=== PATIENT | female | born 1940 | race Caucasian/White ===

== ENCOUNTER 2019-06-07 12:19 | Inpatient (IN) | payer MEDICARE ==
--- NOTE | 2019-06-07 13:10 | EDM.PDOC ---
ED HPI GENERAL MEDICAL PROBLEM - General Chief Complaint: Cardiovascular Problem Stated Complaint: FAST HEART RATE, HIGH BP Time Seen by Provider: 06/07/19 13:06 Source of Information: Reports: Patient History Limitations: Reports: No Limitations - History of Present Illness INITIAL COMMENTS - FREE TEXT/NARRATIVE: pt has had a sustained rapid rhythm today. She has not had chest pain. She is not sob. Pt has not had tachycardia in the past. Onset: Today, Other ( started when she got up) Duration: Hour(s):, Other ( started about 7 am. ) Location: Reports: Chest Associated Symptoms: Reports: No Other Symptoms - Related Data Allergies Allergy/AdvReac Type Severity Reaction Status Date / Time Penicillins Allergy Rash Verified 06/07/19 12:47 Home Meds: Home Meds Fenofibrate 54 mg PO QAM 10/26/13 [History] Levothyroxine [Sythroid] 100 mcg PO DAILY 10/26/13 [History] predniSONE [Prednisone] 3 mg PO QAM 10/26/13 [History] Cyclobenzaprine [Flexeril] 5 mg PO BEDTIME 02/08/14 [History] Acetaminophen [Tylenol Extra Strength] 500 mg PO BID 06/07/19 [History] Calcium Carbonate [Calcium] 1 tab PO DAILY 06/07/19 [History] Cholecalciferol (Vitamin D3) [Vitamin D3] 1 cap PO DAILY 06/07/19 [History] Cyanocobalamin (Vitamin B12) [Vitamin B12] 1,000 mcg PO BID 06/07/19 [History] Fluticasone Propionate [Flonase Allergy Relief] 2 spray JIMMY DAILY 06/07/19 [ History] Ipratropium [Atrovent 0.03% Nasal [place]] 2 drop JIMMY BEDTIME 06/07/19 [History] Metoprolol Succinate [Toprol XL 50mg] 50 mg PO DAILY 06/07/19 [History] Vit A/Vit C/Vit E/Zinc/Copper [Preservision] 1 tab PO DAILY 06/07/19 [History] Past Medical History HEENT History: Reports: Cataract, Macular Degeneration 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 History: Reports: 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 Hernia 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: Musculoskeletal History: Reports: Osteoarthritis, RA, Other (See Below) Other Musculoskeletal History: polymyalgia Neurological History: Reports: Neuropathy, Peripheral - Past Surgical History HEENT Surgical History: Reports: Cataract Surgery GI Surgical History: Reports: Cholecystectomy Female Surgical History: Reports: Section Musculoskeletal Surgical History: Reports: Other (See Below) Other Musculoskeletal Surgeries/Procedures:: ankle surgery Social & Family History - Tobacco Use Smoking Status *Q: Never Smoker - Recreational Drug Use Recreational Drug Use: No ED ROS GENERAL - Review of Systems Review Of Systems: See Below Constitutional: Reports: No Symptoms, Other (pt has not been ill recently) HEENT: Reports: No Symptoms Respiratory: Reports: No Symptoms Cardiovascular: Reports: Palpitations Endocrine: Reports: No Symptoms GI/Abdominal: Reports: No Symptoms : Reports: No Symptoms Musculoskeletal: Reports: No Symptoms Skin: Reports: No Symptoms Neurological: Reports: No Symptoms Psychiatric: Reports: No Symptoms ED EXAM, GENERAL - Physical Exam Free Text/Narrative:: pt arrived with a episode that started at 7 am of a rapid rhythm. She has had this in the past but it has been brief and they have not been seen, Exam Limited By: No Limitations General Appearance: Alert, No Apparent Distress, Anxious, Other (pupils are equal ad reactive. ) Ears: Normal TMs Nose: Normal Inspection Throat/Mouth: Normal Inspection Head: Atraumatic Neck: Normal Inspection Respiratory/Chest: No Respiratory Distress Cardiovascular: Regular Rate, Rhythm, Tachycardia, Other ( rate is 120 to 130. ) GI/Abdominal: Soft, Non-Tender (Female) Exam: Deferred Rectal (Female) Exam: Deferred Back Exam: Normal Inspection Extremities: Normal Inspection Neurological: Alert, Oriented, Normal Cognition Psychiatric: Normal Affect Course - Vital Signs Last Recorded V/S: Last Vital Signs Temp 36.8 C 06/07/19 12:45 Pulse 131 H 06/07/19 12:45 Resp 14 06/07/19 12:45 BP 142/94 H 06/07/19 12:45 Pulse Ox 95 06/07/19 12:45 - Orders/Labs/Meds Orders: Active Orders 24 hr Category Date Time Status EKG Documentation Completion [RC] ASDIRECTED Care 06/07/19 13:01 Active MAGNESIUM [CHEM] Stat Lab 06/07/19 14:02 Ordered UA W/MICROSCOPIC [URIN] Urgent Lab 06/07/19 13:01 Ordered EKG 12 Lead [EK] Routine Ther 06/07/19 13:01 Ordered Labs: Laboratory Tests 06/07/19 06/07/19 06/07/19 Range/Units 13:13 13:13 13:13 WBC 8.7 (4.5-11.0) K/uL RBC 5.28 (3.30-5.50) M/uL Hgb 15.3 H (12.0-15.0) g/dL Hct 47.0 (36.0-48.0) % MCV 89 (80-98) fL MCH 29 (27-31) pg MCHC 33 (32-36) % Plt Count 406 H (150-400) K/uL Neut % (Auto) 63 (36-66) % Lymph % (Auto) 21 L (24-44) % [place] % (Auto) 11 H (2-6) % Eos % (Auto) 5 H (2-4) % Baso % (Auto) 0 (0-1) % Sodium 138 L (140-148) mmol/L Potassium 3.8 (3.6-5.2) mmol/L Chloride 102 (100-108) mmol/L Carbon Dioxide 26 (21-32) mmol/L Anion Gap 13.8 (5.0-14.0) mmol/L BUN 9 (7-18) mg/dL Creatinine 0.7 (0.6-1.0) mg/dL Est Cr Clr Drug Dosing 55.35 mL/min Estimated GFR (MDRD) > 60 (>60) Glucose 102 (74-106) mg/dL Calcium 9.3 (8.5-10.1) mg/dL Total Bilirubin 0.6 (0.2-1.0) mg/dL AST 16 (15-37) U/L ALT 19 (12-78) U/L Alkaline Phosphatase 82 (46-116) U/L Troponin I (0.000-0.056) ng/mL Total Protein 6.7 (6.4-8.2) g/dL Albumin 3.7 (3.4-5.0) g/dL Globulin 3.0 (2.3-3.5) g/dL Albumin/Globulin Ratio 1.2 (1.2-2.2) TSH, Ultra Sensitive 1.750 (0.358-3.740) uIU/mL 06/07/19 Range/Units 13:13 WBC (4.5-11.0) K/uL RBC (3.30-5.50) M/uL Hgb (12.0-15.0) g/dL Hct (36.0-48.0) % MCV (80-98) fL MCH (27-31) pg MCHC (32-36) % Plt Count (150-400) K/uL Neut % (Auto) (36-66) % Lymph % (Auto) (24-44) % [place] % (Auto) (2-6) % Eos % (Auto) (2-4) % Baso % (Auto) (0-1) % Sodium (140-148) mmol/L Potassium (3.6-5.2) mmol/L Chloride (100-108) mmol/L Carbon Dioxide (21-32) mmol/L Anion Gap (5.0-14.0) mmol/L BUN (7-18) mg/dL Creatinine (0.6-1.0) mg/dL Est Cr Clr Drug Dosing mL/min Estimated GFR (MDRD) (>60) Glucose (74-106) mg/dL Calcium (8.5-10.1) mg/dL Total Bilirubin (0.2-1.0) mg/dL AST (15-37) U/L ALT (12-78) U/L Alkaline Phosphatase (46-116) U/L Troponin I < 0.017 (0.000-0.056) ng/mL Total Protein (6.4-8.2) g/dL Albumin (3.4-5.0) g/dL Globulin (2.3-3.5) g/dL Albumin/Globulin Ratio (1.2-2.2) TSH, Ultra Sensitive (0.358-3.740) uIU/mL Meds: Medications Discontinued Medications Generic Name Dose Route Start Last Admin Trade Name Freq PRN Reason Stop Dose Admin Adenosine 6 mg 06/07/19 13:21 06/07/19 13:30 Adenocard IVPUSH 06/07/19 13:22 6 mg NOW ONE Administration - Re-Assessments/Exams Free Text/Narrative Re-Assessment/Exam: 06/07/19 14:10 pt was found to have normal lab work. She was given adenogaard 6 mg iv. She did develop a long period of asystole. Departure - Departure Time of Disposition: 14:11 Disposition: Admitted As Inpatient 65 Condition: Fair Clinical Impression: Atrial tachycardia Referrals: PCP,None [Primary Care Provider] - Forms: ED Department Discharge Care Plan Goals: admit to Dr Champion Sepsis Event Note - Evaluation Sepsis Screening Result: No Definite Risk - Focused Exam Vital Signs: Vital Signs Temp Pulse Resp BP Pulse Ox 06/07/19 12:45 36.8 C 131 H 14 142/94 H 95 Date Exam was Performed: 06/07/19 Time Exam was Performed: 14:06 - My Orders Last 24 Hours: My Active Orders 06/07/19 13:01 EKG Documentation Completion [RC] ASDIRECTED UA W/MICROSCOPIC [URIN] Urgent EKG 12 Lead [EK] Routine 06/07/19 14:02 MAGNESIUM [CHEM] Stat - Assessment/Plan Last 24 Hours: My Active Orders 06/07/19 13:01 EKG Documentation Completion [RC] ASDIRECTED UA W/MICROSCOPIC [URIN] Urgent EKG 12 Lead [EK] Routine 06/07/19 14:02 MAGNESIUM [CHEM] Stat
[2019-06-07] MEDS ORDERED: Adenosine 6 MG/2 ML SDV IVPUSH ONE (13:21)
--- NOTE | 2019-06-07 13:50 | CRLCR ---
INDICATION: Heart rate. COMPARISON: None. FINDINGS: A portable AP view of the chest obtained. The cardiac silhouette and pulmonary vasculature are within normal limits. There is a large hiatal hernia. The lungs are clear of acute infiltrates. There is scoliosis. IMPRESSION: Large hiatal hernia. No evidence of acute pulmonary disease. Dictated by Mirza White MD @ 06/07/2019 1:47:28 PM Dictated by: Mirza White MD @ 06/07/2019 13:48:15 (Electronically Signed)
--- NOTE | 2019-06-07 14:45 | PCM.HP.2 ---
H&P History of Present Illness - General Date of Service: 06/07/19 Admit Problem/Dx: Admission Diagnosis/Problem Admission Diagnosis/Problem Tachycardia Source of Information: Patient, Family, Provider, RN Notes Reviewed History Limitations: Reports: No Limitations - History of Present Illness Initial Comments - Free Text/Narative: Ms. Yanez is an 79-year-old woman who was admitted through the emergency department with palpitations secondary to underlying atrial tachycardia. She has had a few episodes over the past year that have resolved spontaneously. This episode started earlier this morning and has not yet resolved. She presented to the emergency department and was found to be in a narrow complex tachycardia with a regular rhythm. She did receive a dose of Identicard and had a prolonged episode of asystole, but did not convert to sinus rhythm. She denies any history of cardiac disease specifically no prior myocardial infarction congestive heart failure, murmur or rheumatic fever. She denies any symptoms of chest pain or pressure or significant dyspnea. Troponin is within normal range and TSH is also found to be normal. - Related Data Allergies/Adverse Reactions: Allergies Allergy/AdvReac Type Severity Reaction Status Date / Time Penicillins Allergy Rash Verified 06/07/19 12:47 Home Medications: Home Meds Fenofibrate 54 mg PO QAM 10/26/13 [History] Levothyroxine [Sythroid] 100 mcg PO DAILY 10/26/13 [History] predniSONE [Prednisone] 3 mg PO QAM 10/26/13 [History] Cyclobenzaprine [Flexeril] 5 mg PO BEDTIME 02/08/14 [History] Acetaminophen [Tylenol Extra Strength] 500 mg PO BID 06/07/19 [History] Calcium Carbonate [Calcium] 1 tab PO DAILY 06/07/19 [History] Cholecalciferol (Vitamin D3) [Vitamin D3] 1 cap PO DAILY 06/07/19 [History] Cyanocobalamin (Vitamin B12) [Vitamin B12] 1,000 mcg PO BID 06/07/19 [History] Fluticasone Propionate [Flonase Allergy Relief] 2 spray JIMMY DAILY 06/07/19 [ History] Ipratropium [Atrovent 0.03% Nasal [place]] 2 drop JIMMY BEDTIME 06/07/19 [History] Metoprolol Succinate [Toprol XL 50mg] 50 mg PO DAILY 06/07/19 [History] Vit A/Vit C/Vit E/Zinc/Copper [Preservision] 1 tab PO DAILY 06/07/19 [History] Past Medical History HEENT History: Reports: Cataract, Macular Degeneration 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 History: Reports: Hiatal Hernia 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: Musculoskeletal History: Reports: Osteoarthritis, RA, Other (See Below) Other Musculoskeletal History: polymyalgia Neurological History: Reports: Neuropathy, Peripheral - Past Surgical History HEENT Surgical History: Reports: Cataract Surgery GI Surgical History: Reports: Cholecystectomy Female Surgical History: Reports: Section Musculoskeletal Surgical History: Reports: Other (See Below) Other Musculoskeletal Surgeries/Procedures:: ankle surgery Social & Family History - Tobacco Use Smoking Status *Q: Never Smoker - Recreational Drug Use Recreational Drug Use: No H&P Review of Systems - Review of Systems: Review Of Systems: See Below General: Reports: No Symptoms Pulmonary: Reports: No Symptoms Cardiovascular: Reports: Palpitations. Denies: Chest Pain, Dyspnea on Exertion , Orthopnea, PND, Edema, Lightheadedness 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: Reports: No Symptoms Genitourinary: Reports: No Symptoms Musculoskeletal: Reports: No Symptoms Skin: Reports: No Symptoms Psychiatric: Reports: No Symptoms Neurological: Reports: No Symptoms Hematologic/Lymphatic: Reports: No Symptoms Immunologic: Reports: No Symptoms Exam - Exam Exam: See Below - Vital Signs Vital Signs: Last Vital Signs Temp 98.2 F 06/07/19 12:45 Pulse 124 H 06/07/19 14:10 Resp 17 06/07/19 14:10 BP 134/89 06/07/19 14:10 Pulse Ox 96 06/07/19 14:10 Weight: 158 lb 8.198 oz - Exam Quality Assessment: DVT Prophylaxis General: Alert, Oriented, Cooperative, Mild Distress HEENT: Conjunctiva Clear, Hearing Intact, Mucosa Moist & [place], Normal Nasal Septum, Posterior Pharynx Clear, Pupils Equal Neck: Supple, Trachea Midline, +2 Carotid Pulse wo Bruit Lungs: Clear to Auscultation, Normal Respiratory Effort Cardiovascular: Regular Rate, Regular Rhythm, Normal S1, Normal S2. No: Systolic Murmur, Diastolic Murmur GI/Abdominal Exam: Soft, Non-Tender, No Organomegaly, No Distention Back Exam: Normal Inspection, Full Range of Motion Extremities: Non-Tender, No Pedal Edema Skin: Warm, Dry, Intact Neurological: Cranial Nerves Intact, Strength Equal Bilateral, Normal Speech, Normal Tone, Sensation Intact. No: Focal Deficit Neuro Extensive - Mental Status: Alert, Oriented x3, Normal Mood/Affect, Normal Cognition, Memory Intact - Patient Data Lab Results Last 24 hrs: Laboratory Results - last 24 hr 06/07/19 06/07/19 06/07/19 Range/Units 13:13 13:13 13:13 WBC 8.7 (4.5-11.0) K/uL RBC 5.28 (3.30-5.50) M/uL Hgb 15.3 H (12.0-15.0) g/dL Hct 47.0 (36.0-48.0) % MCV 89 (80-98) fL MCH 29 (27-31) pg MCHC 33 (32-36) % Plt Count 406 H (150-400) K/uL Neut % (Auto) 63 (36-66) % Lymph % (Auto) 21 L (24-44) % [place] % (Auto) 11 H (2-6) % Eos % (Auto) 5 H (2-4) % Baso % (Auto) 0 (0-1) % Sodium 138 L (140-148) mmol/L Potassium 3.8 (3.6-5.2) mmol/L Chloride 102 (100-108) mmol/L Carbon Dioxide 26 (21-32) mmol/L Anion Gap 13.8 (5.0-14.0) mmol/L BUN 9 (7-18) mg/dL Creatinine 0.7 (0.6-1.0) mg/dL Est Cr Clr Drug Dosing 55.35 mL/min Estimated GFR (MDRD) > 60 (>60) Glucose 102 (74-106) mg/dL Calcium 9.3 (8.5-10.1) mg/dL Magnesium (1.8-2.4) mg/dL Total Bilirubin 0.6 (0.2-1.0) mg/dL AST 16 (15-37) U/L ALT 19 (12-78) U/L Alkaline Phosphatase 82 (46-116) U/L Troponin I (0.000-0.056) ng/mL Total Protein 6.7 (6.4-8.2) g/dL Albumin 3.7 (3.4-5.0) g/dL Globulin 3.0 (2.3-3.5) g/dL Albumin/Globulin Ratio 1.2 (1.2-2.2) TSH, Ultra Sensitive 1.750 (0.358-3.740) uIU/mL 06/07/19 06/07/19 Range/Units 13:13 14:07 WBC (4.5-11.0) K/uL RBC (3.30-5.50) M/uL Hgb (12.0-15.0) g/dL Hct (36.0-48.0) % MCV (80-98) fL MCH (27-31) pg MCHC (32-36) % Plt Count (150-400) K/uL Neut % (Auto) (36-66) % Lymph % (Auto) (24-44) % [place] % (Auto) (2-6) % Eos % (Auto) (2-4) % Baso % (Auto) (0-1) % Sodium (140-148) mmol/L Potassium (3.6-5.2) mmol/L Chloride (100-108) mmol/L Carbon Dioxide (21-32) mmol/L Anion Gap (5.0-14.0) mmol/L BUN (7-18) mg/dL Creatinine (0.6-1.0) mg/dL Est Cr Clr Drug Dosing mL/min Estimated GFR (MDRD) (>60) Glucose (74-106) mg/dL Calcium (8.5-10.1) mg/dL Magnesium 1.8 (1.8-2.4) mg/dL Total Bilirubin (0.2-1.0) mg/dL AST (15-37) U/L ALT (12-78) U/L Alkaline Phosphatase (46-116) U/L Troponin I < 0.017 (0.000-0.056) ng/mL Total Protein (6.4-8.2) g/dL Albumin (3.4-5.0) g/dL Globulin (2.3-3.5) g/dL Albumin/Globulin Ratio (1.2-2.2) TSH, Ultra Sensitive (0.358-3.740) uIU/mL Result Diagrams: 06/07/19 13:13 06/07/19 13:13 Sepsis Event Note - Evaluation Sepsis Screening Result: No Definite Risk - Focused Exam Vital Signs: Vital Signs Temp Pulse Resp BP Pulse Ox 06/07/19 14:10 124 H 17 134/89 96 06/07/19 13:40 123 H 16 143/84 H 95 06/07/19 13:10 127 H 15 140/85 93 L 06/07/19 12:45 98.2 F 131 H 14 142/94 H 95 Date Exam was Performed: 06/07/19 Time Exam was Performed: 15:55 *Q Meaningful Use (ADM) - VTE Risk Assess *Q Each Risk Factor Represents 1 Point: Obesity ( BMI > 25 kg/m2) Total Score 1 Point Risk Factors: 1 Each Risk Factor Represents 2 Points: Age 60 - 74 Years Total Score 2 Point Risk Factors: 2 Each Risk Factor Represents 3 Points: None Total Score 3 Point Risk Factors: 0 Each Risk Factor Represents 5 Points: None Total Score 5 Point Risk Factors: 0 Venous Thromboembolism Risk Factor Score *Q: 3 Problem List Initiated/Reviewed/Updated: Yes Orders Last 24hrs: Active Orders 24 hr Category Date Time Status Patient Status Manage Transfer [TRANSFER] Routine ADT 06/07/19 14:39 Ordered EKG Documentation Completion [RC] ASDIRECTED Care 06/07/19 13:01 Active UA W/MICROSCOPIC [URIN] Urgent Lab 06/07/19 13:01 Ordered Resuscitation Status Routine Resus Stat 06/07/19 14:41 Ordered EKG 12 Lead [EK] Routine Ther 06/07/19 13:01 Ordered Assessment/Plan Comment:: ASSESSMENT AND PLAN ATRIAL TACHYCARDIA-suspect atrial flutter, less likely AV reentrant tachycardia , she did not convert to sinus rhythm with Adenocard. Other than feeling palpitations with rapid rate she denies any symptoms of chest pain or pressure, shortness of breath. -Metoprolol 25 mg p.o. every 6 hours -NPO after midnight for possible cardioversion in a.m. -Echocardiogram to assess left ventricular function and chamber sizes MAINTENANCE ISSUES -DVT prophylaxis; Lovenox 40 mg subcu daily -GI prophylaxis; not indicated -Engle catheter; not indicated -Nutrition; regular diet, n.p.o. after midnight -Nicotine dependence; not required CODE STATUS-FULL CODE ADMISSION STATUS-patient will be admitted to inpatient status, expect at least a 2 night hospital stay for evaluation and management of problems as outlined above. At the time of this admission I do not reasonably expected evaluation and management of this problem will require more than a 96 hour hospital stay. DISPOSITION-anticipate discharge to home after the hospital stay. PRIMARY CARE PROVIDER- - Mortality Measure Prognosis:: Good
[2019-06-07] MEDS ORDERED: Sodium Chloride 0.9% 10 ML Syringe FLUSH PRN (14:55)
[2019-06-07] MEDS ORDERED: Polyethylene Glycol 3350 Powder 17 GM Packet PO PRN (14:55)
[2019-06-07] MEDS ORDERED: Ondansetron 4 MG/2 ML SDV IV PRN (14:55)
[2019-06-07] MEDS ORDERED: Acetaminophen 325 MG Tab PO PRN (14:55)
[2019-06-07] MEDS ORDERED: Enoxaparin 40 MG/0.4 ML Syringe SUBCUT SCH (16:00)
[2019-06-07] MEDS: Metoprolol Tartrate 25 MG Tab PO SCH ×2 (16:24→21:12)
[2019-06-07] MEDS ORDERED: Ipratropium 0.03% Nasal Spray 30 ML Bot NASBOTH SCH (21:00)
[2019-06-08] MEDS ORDERED: Levothyroxine 100 MCG Tab PO SCH (07:30)
[2019-06-08] MEDS ORDERED: predniSONE 1 MG Tab PO SCH (09:00)
[2019-06-08] MEDS ORDERED: Magnesium Sulfate/Water 2 GM in Premix Bag 1 BAG IV ONE (09:00)
[2019-06-08] MEDS ORDERED: Fenofibrate 54 MG Tab PO SCH (09:00)
--- NOTE | 2019-06-08 09:28 | PCM.DCSUM1 ---
Discharge Summary - Hospital Course Brief History: Ms. Yanez is an 79-year-old who was admitted through the emergency department with palpitations and weakness secondary to atrial flutter. - Discharge Data Discharge Date: 06/08/19 Discharge Disposition: Home, Self-Care 01 Condition: Fair - Referral to Home Health Primary Care Physician: PCP None - Discharge Diagnosis/Problem(s) (1) Atrial flutter SNOMED Code(s): 3193176 ICD Code: I48.92 - UNSPECIFIED ATRIAL FLUTTER Status: Acute Current Visit : Yes - Patient Summary/Data Hospital Course: Ms. Yanez is an 79-year-old woman who was admitted through the emergency department with palpitations secondary to underlying atrial flutter. She has had a few episodes over the past year that have resolved spontaneously. This episode started earlier this morning and has not yet resolved. She presented to the emergency department and was found to be in a narrow complex tachycardia with a regular rhythm. She did receive a dose of Adenocard and had a prolonged episode of asystole, but did not convert to sinus rhythm. She denies any history of cardiac disease specifically no prior myocardial infarction congestive heart failure, murmur or rheumatic fever. She denies any symptoms of chest pain or pressure or significant dyspnea. Troponin is within normal range and TSH is also found to be normal. On admission she was given increase doses of oral metoprolol, 25 mg every 6 hours. Later in the evening following admission she spontaneously converted to sinus rhythm and remained in sinus rhythm throughout the duration of her hospital stay. Echocardiogram was obtained prior to discharge, preliminary report shows no significant atrial enlargement or valvular abnormalities. Left ventricular function was felt to be normal in the range of 50 to 55% ejection fraction. Magnesium was found to be mildly low on the did receive magnesium replacement therapy. Activity will be as tolerated and she will remain on a heart healthy diet. Follow-up appointment will be scheduled with her primary care provider within 1 week. - Patient Instructions Diet: Heart Healthy Diet Activity: As Tolerated Other/Special Instructions: Please schedule follow-up appointment with primary care provider within 1 week. - Discharge Plan *PRESCRIPTION DRUG MONITORING PROGRAM REVIEWED*: Not Applicable *COPY OF PRESCRIPTION DRUG MONITORING REPORT IN PATIENT DEIRDRE: Not Applicable Prescriptions/Med Rec: Metoprolol Succinate 100 mg PO DAILY #30 tab.er.24h Home Medications: Home Meds Fenofibrate 54 mg PO QAM 10/26/13 [History] Levothyroxine [Synthroid] 100 mcg PO DAILY 10/26/13 [History] predniSONE [Prednisone] 3 mg PO QAM 10/26/13 [History] Cyclobenzaprine [Flexeril] 5 mg PO BEDTIME 02/08/14 [History] Acetaminophen [Tylenol Extra Strength] 500 mg PO BID 06/07/19 [History] Calcium Carbonate [Calcium] 1 tab PO DAILY 06/07/19 [History] Cholecalciferol (Vitamin D3) [Vitamin D3] 1 cap PO DAILY 06/07/19 [History] Cyanocobalamin (Vitamin B12) [Vitamin B12] 1,000 mcg PO BID 06/07/19 [History] Fluticasone Propionate [Flonase Allergy Relief] 2 spray JIMMY DAILY 06/07/19 [ History] Ipratropium [Atrovent 0.03% Nasal [place]] 2 drop JIMMY BEDTIME 06/07/19 [History] Vit A/Vit C/Vit E/Zinc/Copper [Preservision] 1 tab PO DAILY 06/07/19 [History] Metoprolol Succinate 100 mg PO DAILY #30 tab.er.24h 06/08/19 [Rx] Referrals: Tiffanie Crawford PA [Consulting Physician] - - Discharge Summary/Plan Comment DC Time >30 min.: No - Patient Data Vitals - Most Recent: Last Vital Signs Temp 97.7 F 06/08/19 08:00 Pulse 82 06/08/19 08:00 Resp 16 06/08/19 08:00 BP 148/82 H 06/08/19 08:00 Pulse Ox 92 L 06/08/19 08:00 Weight - Most Recent: 158 lb 8.198 oz I&O - Last 24 hours: Intake & Output 06/07/19 06/08/19 06/08/19 22:59 06:59 14:59 Intake Total 480 Output Total 300 Balance 180 Lab Results - Last 24 hrs: Laboratory Results - last 24 hr 06/07/19 06/07/19 06/07/19 Range/Units 13:13 13:13 13:13 WBC 8.7 (4.5-11.0) K/uL RBC 5.28 (3.30-5.50) M/uL Hgb 15.3 H (12.0-15.0) g/dL Hct 47.0 (36.0-48.0) % MCV 89 (80-98) fL MCH 29 (27-31) pg MCHC 33 (32-36) % Plt Count 406 H (150-400) K/uL Neut % (Auto) 63 (36-66) % Lymph % (Auto) 21 L (24-44) % [place] % (Auto) 11 H (2-6) % Eos % (Auto) 5 H (2-4) % Baso % (Auto) 0 (0-1) % Sodium 138 L (140-148) mmol/L Potassium 3.8 (3.6-5.2) mmol/L Chloride 102 (100-108) mmol/L Carbon Dioxide 26 (21-32) mmol/L Anion Gap 13.8 (5.0-14.0) mmol/L BUN 9 (7-18) mg/dL Creatinine 0.7 (0.6-1.0) mg/dL Est Cr Clr Drug Dosing 55.35 mL/min Estimated GFR (MDRD) > 60 (>60) Glucose 102 (74-106) mg/dL Calcium 9.3 (8.5-10.1) mg/dL Magnesium (1.8-2.4) mg/dL Total Bilirubin 0.6 (0.2-1.0) mg/dL AST 16 (15-37) U/L ALT 19 (12-78) U/L Alkaline Phosphatase 82 (46-116) U/L Troponin I (0.000-0.056) ng/mL Total Protein 6.7 (6.4-8.2) g/dL Albumin 3.7 (3.4-5.0) g/dL Globulin 3.0 (2.3-3.5) g/dL Albumin/Globulin Ratio 1.2 (1.2-2.2) TSH, Ultra Sensitive 1.750 (0.358-3.740) uIU/mL 06/07/19 06/07/19 06/08/19 Range/Units 13:13 14:07 05:40 WBC 6.7 (4.5-11.0) K/uL RBC 5.02 (3.30-5.50) M/uL Hgb 14.6 (12.0-15.0) g/dL Hct 45.1 (36.0-48.0) % MCV 90 (80-98) fL MCH 29 (27-31) pg MCHC 32 (32-36) % Plt Count 336 (150-400) K/uL Neut % (Auto) 56 (36-66) % Lymph % (Auto) 24 (24-44) % [place] % (Auto) 13 H (2-6) % Eos % (Auto) 7 H (2-4) % Baso % (Auto) 0 (0-1) % Sodium (140-148) mmol/L Potassium (3.6-5.2) mmol/L Chloride (100-108) mmol/L Carbon Dioxide (21-32) mmol/L Anion Gap (5.0-14.0) mmol/L BUN (7-18) mg/dL Creatinine (0.6-1.0) mg/dL Est Cr Clr Drug Dosing mL/min Estimated GFR (MDRD) (>60) Glucose (74-106) mg/dL Calcium (8.5-10.1) mg/dL Magnesium 1.8 (1.8-2.4) mg/dL Total Bilirubin (0.2-1.0) mg/dL AST (15-37) U/L ALT (12-78) U/L Alkaline Phosphatase (46-116) U/L Troponin I < 0.017 (0.000-0.056) ng/mL Total Protein (6.4-8.2) g/dL Albumin (3.4-5.0) g/dL Globulin (2.3-3.5) g/dL Albumin/Globulin Ratio (1.2-2.2) TSH, Ultra Sensitive (0.358-3.740) uIU/mL 06/08/19 Range/Units 05:40 WBC (4.5-11.0) K/uL RBC (3.30-5.50) M/uL Hgb (12.0-15.0) g/dL Hct (36.0-48.0) % MCV (80-98) fL MCH (27-31) pg MCHC (32-36) % Plt Count (150-400) K/uL Neut % (Auto) (36-66) % Lymph % (Auto) (24-44) % [place] % (Auto) (2-6) % Eos % (Auto) (2-4) % Baso % (Auto) (0-1) % Sodium 140 (140-148) mmol/L Potassium 3.8 (3.6-5.2) mmol/L Chloride 105 (100-108) mmol/L Carbon Dioxide 26 (21-32) mmol/L Anion Gap 9.1 (5.0-14.0) mmol/L BUN 9 (7-18) mg/dL Creatinine 0.6 (0.6-1.0) mg/dL Est Cr Clr Drug Dosing 64.58 mL/min Estimated GFR (MDRD) > 60 (>60) Glucose 89 (74-106) mg/dL Calcium 8.8 (8.5-10.1) mg/dL Magnesium 1.7 L (1.8-2.4) mg/dL Total Bilirubin (0.2-1.0) mg/dL AST (15-37) U/L ALT (12-78) U/L Alkaline Phosphatase (46-116) U/L Troponin I (0.000-0.056) ng/mL Total Protein (6.4-8.2) g/dL Albumin (3.4-5.0) g/dL Globulin (2.3-3.5) g/dL Albumin/Globulin Ratio (1.2-2.2) TSH, Ultra Sensitive (0.358-3.740) uIU/mL Med Orders - Current: Current Medications Acetaminophen (Tylenol) 650 mg PO Q4H PRN PRN Reason: Pain (Mild 1-3)/fever Enoxaparin Sodium (Lovenox) 40 mg SUBCUT Q24H [facility] Last Admin: 06/07/19 16:26 Dose: 40 mg Fenofibrate (Fenofibrate) 54 mg PO QAM [facility] Last Admin: 06/08/19 08:19 Dose: 54 mg Magnesium Sulfate 2 gm/ Premix 50 mls @ 25 mls/hr IV ONETIME ONE Stop: 06/08/19 10:59 Ipratropium [place] (Atrovent 0.03% Nasal [place]) 0 ml NASBOTH BEDTIME [facility] Last Admin: 06/07/19 20:38 Dose: Not Given Levothyroxine Sodium (Synthroid) 100 mcg PO DAILY@0730 [facility] Last Admin: 06/08/19 07:31 Dose: 100 mcg Ondansetron HCl (Zofran) 4 mg IV Q4H PRN PRN Reason: Nausea/Vomiting Polyethylene Glycol (Miralax) 17 gm PO DAILY PRN PRN Reason: Constipation Prednisone (Prednisone) 3 mg PO QAM [facility] Last Admin: 06/08/19 08:18 Dose: 3 mg Sodium Chloride (Saline Flush) 10 ml FLUSH ASDIRECTED PRN PRN Reason: Keep Vein Open Discontinued Medications Adenosine (Adenocard) 6 mg IVPUSH NOW ONE Stop: 06/07/19 13:22 Last Admin: 06/07/19 13:30 Dose: 6 mg Metoprolol Tartrate (Lopressor) 25 mg PO Q6H [facility] Last Admin: 06/07/19 21:12 Dose: 25 mg - Exam General: Reports: Alert, Oriented, Cooperative, No Acute Distress Lungs: Reports: Clear to Auscultation, Normal Respiratory Effort Cardiovascular: Reports: Regular Rate, Regular Rhythm (Any paperwork anything I can look at well discharge to be able give her a little preliminary major any atrial enlargement and LV function looked okay no major valve issues as I will just tell RNNo), No Murmurs GI/Abdominal Exam: Soft, Non-Tender, No Organomegaly, No Distention Extremities: Non-Tender, No Pedal Edema
[2019-06-08] MEDS ORDERED: Metoprolol Succinate 50 MG Tab.ER PO ONE (10:30)
== END 2019-06-08 11:59 | disposition home or self-care (01) | DRG 310 ==
LOC: JP.ED 12:19 → JP.ICU 14:39
PROVIDERS: ADMIT Hospitalist; ATTEND Hospitalist
DX: I48.92 Unspecified atrial flutter (principal); H35.30 Unspecified macular degeneration; K44.9 Diaphragmatic hernia without obstruction or gangrene; I47.1 Supraventricular tachycardia; M19.90 Unspecified osteoarthritis, unspecified site; M35.3 Polymyalgia rheumatica; M06.9 Rheumatoid arthritis, unspecified; G62.9 Polyneuropathy, unspecified; Z88.0 Allergy status to penicillin; Z79.890 Hormone replacement therapy; Z79.52 Long term (current) use of systemic steroids; Z79.899 Other long term (current) drug therapy; Z98.49 Cataract extraction status, unspecified eye; Z90.49 Acquired absence of other specified parts of digestive tract
CPT/HCPCS: 36415; 71045; 80053; 83735; 84443; 84484; 85025; 93005; J0153; 80048; 93010; 93306; A9270-GY; J1650; J3475

== ENCOUNTER 2019-08-10 13:20 | Inpatient (IN) | payer MEDICARE ==
[2019-08-10] MEDS ORDERED: Diltiazem 25 MG/5 ML SDV IVPUSH ONE (14:30)
[2019-08-10] MEDS ORDERED: Sodium Chloride 0.9% 1,000 ML IV SCH ×2 (14:30→16:56)
[2019-08-10] MEDS: Diltiazem 100 MG in Sodium Chloride 0.9% 100 ML IV SCH ×2 (14:48→19:46)
[2019-08-10] MEDS ORDERED: Magnesium Sulfate/Water 2 GM in Premix Bag 1 BAG IV ONE (14:53)
--- NOTE | 2019-08-10 15:18 | EDM.PDOC ---
ED HPI GENERAL MEDICAL PROBLEM - General Chief Complaint: Cardiovascular Problem Stated Complaint: RAPID HEART BEAT Time Seen by Provider: 08/10/19 13:55 Source of Information: Reports: Patient, Family History Limitations: Reports: No Limitations - History of Present Illness INITIAL COMMENTS - FREE TEXT/NARRATIVE: PT ARRIVED WITH A RAPID HEART BEAT WHICH STARTED THIS AM. sHE NOTED THIS WHEN SHE GOT UP. sHE DID NOT HAVE CHEST PAIN AND SHE IS NOT SYTOMATIC Onset: Other ( STARTED THIA AM. ) Duration: Hour(s): Location: Reports: Chest, Generalized Associated Symptoms: Reports: Other (PT DID NOT HAVE SYMPTOMS. ) - Related Data Allergies Allergy/AdvReac Type Severity Reaction Status Date / Time Penicillins Allergy Rash Verified 06/07/19 12:47 Home Meds: Home Meds Fenofibrate 54 mg PO QAM 10/26/13 [History] Levothyroxine [Synthroid] 100 mcg PO DAILY 10/26/13 [History] predniSONE [Prednisone] 3 mg PO QAM 10/26/13 [History] Cyclobenzaprine [Flexeril] 5 mg PO BEDTIME 02/08/14 [History] Acetaminophen [Tylenol Extra Strength] 500 mg PO BID 06/07/19 [History] Calcium Carbonate [Calcium] 1 tab PO DAILY 06/07/19 [History] Cholecalciferol (Vitamin D3) [Vitamin D3] 1 cap PO DAILY 06/07/19 [History] Cyanocobalamin (Vitamin B12) [Vitamin B12] 1,000 mcg PO BID 06/07/19 [History] Fluticasone Propionate [Flonase Allergy Relief] 2 spray JIMMY DAILY 06/07/19 [ History] Ipratropium [Atrovent 0.03% Nasal [place]] 2 drop JIMMY BEDTIME 06/07/19 [History] Vit A/Vit C/Vit E/Zinc/Copper [Preservision] 1 tab PO DAILY 06/07/19 [History] Metoprolol Succinate 100 mg PO DAILY #30 tab.er.24h 06/08/19 [Rx] Past Medical History HEENT History: Reports: Cataract, Macular Degeneration Cardiovascular History: Reports: Other (See Below) Other Cardiovascular History: a fib 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 History: Reports: Hiatal Hernia 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: Musculoskeletal History: Reports: Osteoarthritis, RA, Other (See Below) Other Musculoskeletal History: polymyalgia Neurological History: Reports: Neuropathy, Peripheral - Past Surgical History HEENT Surgical History: Reports: Cataract Surgery GI Surgical History: Reports: Cholecystectomy Female Surgical History: Reports: Section Musculoskeletal Surgical History: Reports: Other (See Below) Other Musculoskeletal Surgeries/Procedures:: ankle surgery Social & Family History - Tobacco Use Smoking Status *Q: Never Smoker - Caffeine Use Caffeine Use: Reports: Coffee - Recreational Drug Use Recreational Drug Use: No ED ROS GENERAL - Review of Systems Review Of Systems: See Below Constitutional: Reports: No Symptoms HEENT: Reports: No Symptoms Respiratory: Reports: No Symptoms Cardiovascular: Reports: Palpitations Endocrine: Reports: No Symptoms GI/Abdominal: Reports: No Symptoms : Reports: No Symptoms Musculoskeletal: Reports: No Symptoms Skin: Reports: No Symptoms ED EXAM, GENERAL - Physical Exam Exam: See Below Free Text/Narrative:: PT ARRIVED WITH A HISTORY OF A RAPID RHYTHM. sHE HAD ATRIAL FIB ABOUT 6 WEEKS AGO. tHERE WAS A CONCERN AT THAT TIME WHETHER THIS WAS ATRIAL FIB OR FLUTTER. Exam Limited By: No Limitations General Appearance: Alert, No Apparent Distress Ears: Normal TMs Nose: Normal Inspection Throat/Mouth: Normal Inspection Head: Atraumatic Neck: Normal Inspection Respiratory/Chest: No Respiratory Distress Cardiovascular: Tachycardia GI/Abdominal: Soft, Non-Tender (Female) Exam: Deferred Rectal (Female) Exam: Deferred Back Exam: Normal Inspection Extremities: Normal Inspection Neurological: Alert, Oriented, Normal Cognition Psychiatric: Anxious Course - Vital Signs Last Recorded V/S: Last Vital Signs Temp 97.5 C H 08/10/19 13:58 Pulse 129 H 08/10/19 14:55 Resp 11 L 08/10/19 14:55 BP 106/52 L 08/10/19 14:55 Pulse Ox 94 L 08/10/19 14:55 - Orders/Labs/Meds Orders: Active Orders 24 hr Category Date Time Status EKG Documentation Completion [RC] ASDIRECTED Care 08/10/19 13:54 Active Diltiazem [Cardizem] 100 mg Med 08/10/19 14:45 Active Sodium Chloride 0.9% [Normal Saline] 100 ml IV TITRATE Magnesium Sulfate/Water [Magnesium Sulfate in Water Med 08/10/19 14:53 Active Premix] 2 gm Premix Bag 1 bag IV ONETIME Sodium Chloride 0.9% [Normal Saline] 1,000 ml Med 08/10/19 14:30 Active IV ASDIRECTED EKG 12 Lead [EK] Routine Ther 08/10/19 13:54 Ordered Medication Orders Sodium Chloride (Normal Saline) 1,000 mls @ 125 mls/hr IV ASDIRECTED ARGENIS Last Admin: 08/10/19 14:47 Dose: 125 mls/hr Diltiazem HCl 100 mg/ Sodium (Chloride) 100 mls @ 5 mls/hr IV TITRATE ARGENIS; Protocol Last Admin: 08/10/19 14:48 Dose: 5 mg/hr, 5 mls/hr Magnesium Sulfate 2 gm/ Premix 50 mls @ 12.5 mls/hr IV ONETIME ONE Stop: 08/10/19 18:52 Labs: Laboratory Tests 08/10/19 08/10/19 08/10/19 Range/Units 13:58 13:58 13:58 WBC 8.6 (4.5-11.0) K/uL RBC 5.02 (3.30-5.50) M/uL Hgb 14.5 (12.0-15.0) g/dL Hct 45.2 (36.0-48.0) % MCV 90 (80-98) fL MCH 29 (27-31) pg MCHC 32 (32-36) % Plt Count 366 (150-400) K/uL Neut % (Auto) 69 H (36-66) % Lymph % (Auto) 18 L (24-44) % [place] % (Auto) 12 H (2-6) % Eos % (Auto) 2 (2-4) % Baso % (Auto) 0 (0-1) % Sodium 140 (140-148) mmol/L Potassium 3.8 (3.6-5.2) mmol/L Chloride 104 (100-108) mmol/L Carbon Dioxide 25 (21-32) mmol/L Anion Gap 10.9 (5.0-14.0) mmol/L BUN 10 (7-18) mg/dL Creatinine 0.7 (0.6-1.0) mg/dL Est Cr Clr Drug Dosing 55.35 mL/min Estimated GFR (MDRD) > 60 (>60) Glucose 99 (74-106) mg/dL Calcium 8.9 (8.5-10.1) mg/dL Magnesium 1.7 L (1.8-2.4) mg/dL Total Bilirubin 0.5 (0.2-1.0) mg/dL AST 20 (15-37) U/L ALT 19 (12-78) U/L Alkaline Phosphatase 74 (46-116) U/L Creatine Kinase (26-192) U/L Troponin I (0.000-0.056) ng/mL Total Protein 6.3 L (6.4-8.2) g/dL Albumin 3.4 (3.4-5.0) g/dL Globulin 2.9 (2.3-3.5) g/dL Albumin/Globulin Ratio 1.2 (1.2-2.2) TSH, Ultra Sensitive 1.584 (0.358-3.740) uIU/mL Urine Color (YELLOW) Urine Appearance (CLEAR) Urine pH (5.0-8.0) Ur Specific [place] (1.008-1.030) Urine Protein (NEGATIVE) mg/dL Urine Glucose (UA) (NEGATIVE) mg/dL Urine Ketones (NEGATIVE) mg/dL Urine Occult Blood (NEGATIVE) Urine Nitrite (NEGATIVE) Urine Bilirubin (NEGATIVE) Urine Urobilinogen (0.2-1.0) EU/dL Ur Leukocyte Esterase (NEGATIVE) Urine RBC (0-5) Urine WBC (0-5) Ur Epithelial Cells Amorphous Sediment Urine Bacteria Urine Mucus 08/10/19 08/10/19 08/10/19 Range/Units 14:05 14:22 14:57 WBC (4.5-11.0) K/uL RBC (3.30-5.50) M/uL Hgb (12.0-15.0) g/dL Hct (36.0-48.0) % MCV (80-98) fL MCH (27-31) pg MCHC (32-36) % Plt Count (150-400) K/uL Neut % (Auto) (36-66) % Lymph % (Auto) (24-44) % [place] % (Auto) (2-6) % Eos % (Auto) (2-4) % Baso % (Auto) (0-1) % Sodium (140-148) mmol/L Potassium (3.6-5.2) mmol/L Chloride (100-108) mmol/L Carbon Dioxide (21-32) mmol/L Anion Gap (5.0-14.0) mmol/L BUN (7-18) mg/dL Creatinine (0.6-1.0) mg/dL Est Cr Clr Drug Dosing mL/min Estimated GFR (MDRD) (>60) Glucose (74-106) mg/dL Calcium (8.5-10.1) mg/dL Magnesium (1.8-2.4) mg/dL Total Bilirubin (0.2-1.0) mg/dL AST (15-37) U/L ALT (12-78) U/L Alkaline Phosphatase (46-116) U/L Creatine Kinase 32 (26-192) U/L Troponin I < 0.017 (0.000-0.056) ng/mL Total Protein (6.4-8.2) g/dL Albumin (3.4-5.0) g/dL Globulin (2.3-3.5) g/dL Albumin/Globulin Ratio (1.2-2.2) TSH, Ultra Sensitive (0.358-3.740) uIU/mL Urine Color Yellow (YELLOW) Urine Appearance Clear (CLEAR) Urine pH 7.0 (5.0-8.0) Ur Specific [place] 1.015 (1.008-1.030) Urine Protein Negative (NEGATIVE) mg/dL Urine Glucose (UA) Negative (NEGATIVE) mg/dL Urine Ketones Negative (NEGATIVE) mg/dL Urine Occult Blood Negative (NEGATIVE) Urine Nitrite Negative (NEGATIVE) Urine Bilirubin Negative (NEGATIVE) Urine Urobilinogen 0.2 (0.2-1.0) EU/dL Ur Leukocyte Esterase Negative (NEGATIVE) Urine RBC Not seen (0-5) Urine WBC 0-5 (0-5) Ur Epithelial Cells Rare Amorphous Sediment Not seen Urine Bacteria Not seen Urine Mucus Not seen Meds: Medications Generic Name Dose Route Start Last Admin Trade Name Freq PRN Reason Stop Dose Admin Sodium Chloride 1,000 mls @ 125 mls/hr 08/10/19 14:30 08/10/19 14:47 Normal Saline IV 125 mls/hr ASDIRECTED ARGENIS Administration Diltiazem HCl 100 mg/ Sodium 100 mls @ 5 mls/hr 08/10/19 14:45 08/10/19 14:48 Chloride IV 5 mg/hr TITRATE ARGENIS 5 mls/hr Administration Protocol 5 MG/HR Magnesium Sulfate 2 gm/ Premix 50 mls @ 12.5 mls/hr 08/10/19 14:53 IV 08/10/19 18:52 ONETIME ONE Discontinued Medications Generic Name Dose Route Start Last Admin Trade Name Nathen PRN Reason Stop Dose Admin Diltiazem HCl 10 mg 08/10/19 14:30 08/10/19 14:51 Diltiazem IVPUSH 08/10/19 14:31 10 mg ONETIME ONE Administration - Re-Assessments/Exams Free Text/Narrative Re-Assessment/Exam: 08/10/19 15:26 PT HAD NORMAL LABS EXCEPT SHE HAD A LOW mAGNESIUM Departure - Departure Time of Disposition: 15:26 Disposition: Admitted As Inpatient 65 Condition: Fair Clinical Impression: Atrial flutter Referrals: PCP,None [Primary Care Provider] - Forms: ED Department Discharge Care Plan Goals: ADMIT TO [facility] [place]. Sepsis Event Note - Evaluation Sepsis Screening Result: No Definite Risk - Focused Exam Vital Signs: Vital Signs Temp Pulse Resp BP Pulse Ox 08/10/19 14:55 129 H 11 L 106/52 L 94 L 08/10/19 13:58 97.5 C H 125 H 18 133/97 H Date Exam was Performed: 08/10/19 Time Exam was Performed: 15:21 - My Orders Last 24 Hours: My Active Orders 08/10/19 13:54 EKG Documentation Completion [RC] ASDIRECTED EKG 12 Lead [EK] Routine 08/10/19 14:30 Sodium Chloride 0.9% [Normal Saline] 1,000 ml IV ASDIRECTED 08/10/19 14:45 Diltiazem [Cardizem] 100 mg Sodium Chloride 0.9% [Normal Saline] 100 ml IV TITRATE 08/10/19 14:53 Magnesium Sulfate/Water [Magnesium Sulfate in Water Premix] 2 gm Premix Bag 1 bag IV ONETIME - Assessment/Plan Last 24 Hours: My Active Orders 08/10/19 13:54 EKG Documentation Completion [RC] ASDIRECTED EKG 12 Lead [EK] Routine 08/10/19 14:30 Sodium Chloride 0.9% [Normal Saline] 1,000 ml IV ASDIRECTED 08/10/19 14:45 Diltiazem [Cardizem] 100 mg Sodium Chloride 0.9% [Normal Saline] 100 ml IV TITRATE 08/10/19 14:53 Magnesium Sulfate/Water [Magnesium Sulfate in Water Premix] 2 gm Premix Bag 1 bag IV ONETIME
[2019-08-10] MEDS: Magnesium Sulfate/Water 2 GM in Premix Bag 1 BAG IV ONE ×2 (15:40→18:18)
--- NOTE | 2019-08-10 16:31 | PCM.HP.2 ---
H&P History of Present Illness - General Date of Service: 08/10/19 Admit Problem/Dx: Admission Diagnosis/Problem Admission Diagnosis/Problem Atrial flutter with rapid ventricular response Source of Information: Patient, Family, Provider History Limitations: Reports: No Limitations - History of Present Illness Initial Comments - Free Text/Narative: CC: my heart is off HPI: Aminata presents to the emergency room today with palpitations and tachycardia. She is worried that she is back in atrial flutter and this was confirmed with cardiac monitoring and EKG. Symptoms were first noted about 930 this morning. She had been feeling well prior to that. No complaints of chest pain or shortness of breath. She says that she feels well. She has not had any fevers or cough. She had a similar episode back in May and this was treated with IV diltiazem before return to a normal sinus rhythm. Her metoprolol was increased at that time. She has not had any cardiology follow- up. No change in bowel or bladder habits. Work-up in the emergency room revealed normal labs. EKG and cardiac monitoring showed atrial flutter with a rate in the 120s. Heart rate is starting to slow a little bit after diltiazem was initiated. She will be admitted for further management. - Related Data Allergies/Adverse Reactions: Allergies Allergy/AdvReac Type Severity Reaction Status Date / Time Penicillins Allergy Rash Verified 06/07/19 12:47 Home Medications: Home Meds Fenofibrate 54 mg PO QAM 10/26/13 [History] Levothyroxine [Synthroid] 100 mcg PO DAILY 10/26/13 [History] predniSONE [Prednisone] 3 mg PO QAM 10/26/13 [History] Cyclobenzaprine [Flexeril] 5 mg PO BEDTIME 02/08/14 [History] Acetaminophen [Tylenol Extra Strength] 500 mg PO BID 06/07/19 [History] Calcium Carbonate [Calcium] 1 tab PO DAILY 06/07/19 [History] Cholecalciferol (Vitamin D3) [Vitamin D3] 1 cap PO DAILY 06/07/19 [History] Cyanocobalamin (Vitamin B12) [Vitamin B12] 1,000 mcg PO BID 06/07/19 [History] Fluticasone Propionate [Flonase Allergy Relief] 2 spray JIMMY DAILY 06/07/19 [ History] Ipratropium [Atrovent 0.03% Nasal [place]] 2 drop JIMMY BEDTIME 06/07/19 [History] Vit A/Vit C/Vit E/Zinc/Copper [Preservision] 1 tab PO DAILY 06/07/19 [History] Metoprolol Succinate 100 mg PO DAILY #30 tab.er.24h 06/08/19 [Rx] Past Medical History HEENT History: Reports: Cataract, Macular Degeneration Cardiovascular History: Reports: Other (See Below) Other Cardiovascular History: a fib 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 History: Reports: Hiatal Hernia [employer]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: Musculoskeletal History: Reports: Osteoarthritis, RA, Other (See Below) Other Musculoskeletal History: polymyalgia Neurological History: Reports: Neuropathy, Peripheral - Past Surgical History HEENT Surgical History: Reports: Cataract Surgery GI Surgical History: Reports: Cholecystectomy Female Surgical History: Reports: Section Musculoskeletal Surgical History: Reports: Other (See Below) Other Musculoskeletal Surgeries/Procedures:: ankle surgery Social & Family History - Family History Cardiac: Denies: CAD - Tobacco Use Smoking Status *Q: Never Smoker - Caffeine Use Caffeine Use: Reports: Coffee - Recreational Drug Use Recreational Drug Use: No H&P Review of Systems - Review of Systems: Review Of Systems: See Below Free Text/Narrative: A complete 12 point review of systems was obtained. Pertinent positives and negatives are noted in the history of present illness. All other systems were reviewed and were negative except as noted. Exam - Exam Exam: See Below - Vital Signs Vital Signs: Last Vital Signs Temp 97.5 C H 08/10/19 13:58 Pulse 126 H 08/10/19 16:27 Resp 12 08/10/19 16:27 BP 103/65 08/10/19 16:27 Pulse Ox 94 L 08/10/19 16:27 Weight: 71.7 kg - Exam Quality Assessment: No: Supplemental Oxygen General: Alert, Oriented, Cooperative. No: Mild Distress HEENT: Conjunctiva Clear, Mucosa Moist & [place]. No: Scleral Icterus Neck: Supple, Trachea Midline. No: Lymphadenopathy Lungs: Clear to Auscultation, Normal Respiratory Effort Cardiovascular: Irregular Rhythm, Tachycardia. No: Systolic Murmur GI/Abdominal Exam: Normal Bowel Sounds, Soft, Non-Tender, No Distention Back Exam: Normal Inspection, Full Range of Motion Extremities: No Pedal Edema. No: Increased Warmth Peripheral Pulses: 1+: Dorsalis Pedis (L), Dorsalis Pedis (R) Skin: Warm, Dry Neuro Extensive - Mental Status: Alert, Oriented x3, Nl Response to Commands Neuro Extensive - Motor, Sensory, Reflexes: No: Dysarthria, Abnormal Motor, Tremor Psychiatric: Alert, Normal Affect - Patient Data Lab Results Last 24 hrs: Laboratory Results - last 24 hr 08/10/19 08/10/19 08/10/19 Range/Units 13:58 13:58 13:58 WBC 8.6 (4.5-11.0) K/uL RBC 5.02 (3.30-5.50) M/uL Hgb 14.5 (12.0-15.0) g/dL Hct 45.2 (36.0-48.0) % MCV 90 (80-98) fL MCH 29 (27-31) pg MCHC 32 (32-36) % Plt Count 366 (150-400) K/uL Neut % (Auto) 69 H (36-66) % Lymph % (Auto) 18 L (24-44) % [place] % (Auto) 12 H (2-6) % Eos % (Auto) 2 (2-4) % Baso % (Auto) 0 (0-1) % Sodium 140 (140-148) mmol/L Potassium 3.8 (3.6-5.2) mmol/L Chloride 104 (100-108) mmol/L Carbon Dioxide 25 (21-32) mmol/L Anion Gap 10.9 (5.0-14.0) mmol/L BUN 10 (7-18) mg/dL Creatinine 0.7 (0.6-1.0) mg/dL Est Cr Clr Drug Dosing 55.35 mL/min Estimated GFR (MDRD) > 60 (>60) Glucose 99 (74-106) mg/dL Calcium 8.9 (8.5-10.1) mg/dL Magnesium 1.7 L (1.8-2.4) mg/dL Total Bilirubin 0.5 (0.2-1.0) mg/dL AST 20 (15-37) U/L ALT 19 (12-78) U/L Alkaline Phosphatase 74 (46-116) U/L Creatine Kinase (26-192) U/L Troponin I (0.000-0.056) ng/mL Total Protein 6.3 L (6.4-8.2) g/dL Albumin 3.4 (3.4-5.0) g/dL Globulin 2.9 (2.3-3.5) g/dL Albumin/Globulin Ratio 1.2 (1.2-2.2) TSH, Ultra Sensitive 1.584 (0.358-3.740) uIU/mL Urine Color (YELLOW) Urine Appearance (CLEAR) Urine pH (5.0-8.0) Ur Specific [place] (1.008-1.030) Urine Protein (NEGATIVE) mg/dL Urine Glucose (UA) (NEGATIVE) mg/dL Urine Ketones (NEGATIVE) mg/dL Urine Occult Blood (NEGATIVE) Urine Nitrite (NEGATIVE) Urine Bilirubin (NEGATIVE) Urine Urobilinogen (0.2-1.0) EU/dL Ur Leukocyte Esterase (NEGATIVE) Urine RBC (0-5) Urine WBC (0-5) Ur Epithelial Cells Amorphous Sediment Urine Bacteria Urine Mucus 08/10/19 08/10/19 08/10/19 Range/Units 14:05 14:22 14:57 WBC (4.5-11.0) K/uL RBC (3.30-5.50) M/uL Hgb (12.0-15.0) g/dL Hct (36.0-48.0) % MCV (80-98) fL MCH (27-31) pg MCHC (32-36) % Plt Count (150-400) K/uL Neut % (Auto) (36-66) % Lymph % (Auto) (24-44) % [place] % (Auto) (2-6) % Eos % (Auto) (2-4) % Baso % (Auto) (0-1) % Sodium (140-148) mmol/L Potassium (3.6-5.2) mmol/L Chloride (100-108) mmol/L Carbon Dioxide (21-32) mmol/L Anion Gap (5.0-14.0) mmol/L BUN (7-18) mg/dL Creatinine (0.6-1.0) mg/dL Est Cr Clr Drug Dosing mL/min Estimated GFR (MDRD) (>60) Glucose (74-106) mg/dL Calcium (8.5-10.1) mg/dL Magnesium (1.8-2.4) mg/dL Total Bilirubin (0.2-1.0) mg/dL AST (15-37) U/L ALT (12-78) U/L Alkaline Phosphatase (46-116) U/L Creatine Kinase 32 (26-192) U/L Troponin I < 0.017 (0.000-0.056) ng/mL Total Protein (6.4-8.2) g/dL Albumin (3.4-5.0) g/dL Globulin (2.3-3.5) g/dL Albumin/Globulin Ratio (1.2-2.2) TSH, Ultra Sensitive (0.358-3.740) uIU/mL Urine Color Yellow (YELLOW) Urine Appearance Clear (CLEAR) Urine pH 7.0 (5.0-8.0) Ur Specific [place] 1.015 (1.008-1.030) Urine Protein Negative (NEGATIVE) mg/dL Urine Glucose (UA) Negative (NEGATIVE) mg/dL Urine Ketones Negative (NEGATIVE) mg/dL Urine Occult Blood Negative (NEGATIVE) Urine Nitrite Negative (NEGATIVE) Urine Bilirubin Negative (NEGATIVE) Urine Urobilinogen 0.2 (0.2-1.0) EU/dL Ur Leukocyte Esterase Negative (NEGATIVE) Urine RBC Not seen (0-5) Urine WBC 0-5 (0-5) Ur Epithelial Cells Rare Amorphous Sediment Not seen Urine Bacteria Not seen Urine Mucus Not seen Result Diagrams: 08/10/19 13:58 08/10/19 13:58 EKG INTERPRETATION EKG Date: 08/10/19 Rhythm: A-Flutter Rate (Beats/Min): 124 [place]: Normal P-Wave: Variable QRS: Normal ST-T: Normal QT: Normal Comparison: No Change EKG Interpretation Comments: image personally reviewed and compared to EKG from 06/07/19 Sepsis Event Note - Evaluation Sepsis Screening Result: No Definite Risk - Focused Exam Vital Signs: Vital Signs Temp Pulse Resp BP Pulse Ox 08/10/19 16:27 126 H 12 103/65 94 L 08/10/19 15:57 127 H 18 103/74 95 08/10/19 15:29 126 H 16 113/78 94 L 08/10/19 14:55 129 H 11 L 106/52 L 94 L 08/10/19 13:58 97.5 C H 125 H 18 133/97 H Date Exam was Performed: 08/10/19 Time Exam was Performed: 17:05 *Q Meaningful Use (ADM) - VTE Risk Assess *Q Each Risk Factor Represents 1 Point: Obesity ( BMI > 25 kg/m2) Total Score 1 Point Risk Factors: 1 Each Risk Factor Represents 2 Points: None Total Score 2 Point Risk Factors: 0 Each Risk Factor Represents 3 Points: None Total Score 3 Point Risk Factors: 0 Each Risk Factor Represents 5 Points: None Total Score 5 Point Risk Factors: 0 Venous Thromboembolism Risk Factor Score *Q: 1 - Problem List (1) Atrial flutter with rapid ventricular response SNOMED Code(s): 0313515, 3293591 ICD Code: I48.92 - UNSPECIFIED ATRIAL FLUTTER Status: Acute Current Visit : Yes Problem List Initiated/Reviewed/Updated: Yes Orders Last 24hrs: Active Orders 24 hr Category Date Time Status Patient Status Manage Transfer [TRANSFER] Routine ADT 08/10/19 16:21 Ordered EKG Documentation Completion [RC] ASDIRECTED Care 08/10/19 13:54 Active Diltiazem [Cardizem] 100 mg Med 08/10/19 14:45 Active Sodium Chloride 0.9% [Normal Saline] 100 ml IV TITRATE Magnesium Sulfate/Water [Magnesium Sulfate in Water Med 08/10/19 15:45 Active Premix] 2 gm Premix Bag 1 bag IV ONETIME Sodium Chloride 0.9% [Normal Saline] 1,000 ml Med 08/10/19 14:30 Active IV ASDIRECTED Resuscitation Status Routine Resus Stat 08/10/19 16:23 Ordered EKG 12 Lead [EK] Routine Ther 08/10/19 13:54 Ordered Medication Orders Sodium Chloride (Normal Saline) 1,000 mls @ 125 mls/hr IV ASDIRECTED ARGENIS Last Admin: 08/10/19 14:47 Dose: 125 mls/hr Diltiazem HCl 100 mg/ Sodium (Chloride) 100 mls @ 5 mls/hr IV TITRATE ARGENIS; Protocol Last Titration: 08/10/19 15:30 Dose: 20 mg/hr, 20 mls/hr Admin: 08/10/19 14:48 Dose: 5 mg/hr, 5 mls/hr Magnesium Sulfate 2 gm/ Premix 50 mls @ 25 mls/hr IV ONETIME ONE Stop: 08/10/19 17:44 Assessment/Plan Comment:: ASSESSMENT AND PLAN - Atrial flutter with rapid ventricular response-recurrent episode with most recent happening about 2 months ago. No symptoms since that time. Minimal symptoms at this time. We are starting to see her rate slowing with the diltiazem. She is not currently anticoagulated but her [id number] score is elevated at 3. Recent echocardiogram was essentially normal. Good functional status with no exertional symptoms. We did review the potential systemic anticoagulation medications and she has elected for warfarin based on cost. I think the benefits outweigh the risks at this point with recurrent episodes. -Continue diltiazem infusion -If she converts, transition to oral diltiazem -If she does not convert overnight consider cardioversion -Initiate warfarin -Continue beta-mary -Cardiac monitoring Acquired hypothyroidism-TSH is normal. No symptoms. Maintenance issues - - DVT prophylaxis -enoxaparin - GI prophylaxis -not indicated - Nutrition -regular diet, nothing by mouth after midnight - [place] catheter -not indicated CODE STATUS -full code Admission justification -this patient will be admitted for inpatient services and is medically appropriate meeting medical necessity for inpatient admission as outlined in my documentation. I reasonably expect the patient will require inpatient services that span a period time over 2 midnights. I reasonably expect this patient to be discharged or transferred within 96 hours [facility]. Disposition -I would anticipate discharge home after the hospital stay Primary care physician - Tiffanie Dougherty M.D. - Mortality Measure Prognosis:: Good
[2019-08-10] MEDS ORDERED: LORazepam 2 MG/ML SDV IVPUSH PRN (16:56)
[2019-08-10] MEDS ORDERED: Ondansetron 4 MG Tab.DIS PO PRN (16:56)
[2019-08-10] MEDS ORDERED: Ondansetron 4 MG/2 ML SDV IV PRN (16:56)
[2019-08-10] MEDS ORDERED: Acetaminophen 325 MG Tab PO PRN (16:56)
[2019-08-10] MEDS ORDERED: Warfarin 5 MG Tab PO ONE (18:00)
[2019-08-10] MEDS ORDERED: Enoxaparin 40 MG/0.4 ML Syringe SUBCUT SCH (18:00)
[2019-08-10] MEDS: Cyanocobalamin (Vitamin B12) 1,000 MCG Tab PO SCH (20:53)
[2019-08-10] MEDS: Acetaminophen 500 MG Tab PO SCH (20:53)
[2019-08-10] MEDS ORDERED: Ipratropium 0.06% Nasal Spray 15 ML Bottle NAS SCH (21:00)
[2019-08-10] MEDS ORDERED: Cyclobenzaprine 10 MG Tab PO SCH (21:00)
[2019-08-10] MEDS ORDERED: Ipratropium 0.03% Nasal Spray 30 ML Bot NAS SCH (21:00)
[2019-08-11] MEDS: Diltiazem 100 MG in Sodium Chloride 0.9% 100 ML IV SCH (03:37)
[2019-08-11] MEDS ORDERED: Levothyroxine 100 MCG Tab PO SCH (07:30)
[2019-08-11] MEDS ORDERED: Propofol 200 MG/20 ML SDV ONE (08:58)
[2019-08-11] MEDS ORDERED: Fenofibrate 54 MG Tab PO SCH (09:00)
[2019-08-11] MEDS ORDERED: Metoprolol Succinate 50 MG Tab.ER PO SCH ×2 (09:00→10:45)
[2019-08-11] MEDS ORDERED: predniSONE 1 MG Tab PO SCH (09:00)
[2019-08-11] MEDS ORDERED: Diltiazem 120 MG Cap.CD PO SCH (10:45)
[2019-08-11] MEDS: Acetaminophen 500 MG Tab PO SCH (11:09)
[2019-08-11] MEDS: Cyanocobalamin (Vitamin B12) 1,000 MCG Tab PO SCH (11:09)
[2019-08-11] MEDS ORDERED: Warfarin 5 MG Tab PO SCH (13:00)
--- NOTE | 2019-08-11 14:00 | PCM.DCSUM1 ---
Discharge Summary - Hospital Course Brief History: 79-year-old female with history of acquired hypothyroidism and one episode of paroxysmal atrial flutter who presented with palpitations. She was admitted for management of recurrent atrial flutter with a rapid ventricular response. Diagnosis: Stroke: No - Discharge Data Discharge Date: 08/11/19 Discharge Disposition: Home, Self-Care 01 Condition: Good - Referral to Home Health Primary Care Physician: PCP None - Discharge Diagnosis/Problem(s) (1) Atrial flutter with rapid ventricular response SNOMED Code(s): 4495014, [id number] ICD Code: I48.92 - UNSPECIFIED ATRIAL FLUTTER Status: Acute - Patient Summary/Data Hospital Course: Aminata presented to the emergency room with palpitations. EKG and cardiac monitoring confirmed atrial flutter with a rapid ventricular response and ventricular rates in the 120s. Laboratory studies were fairly unremarkable other than a mild decrease in her magnesium at 1.7. She received a bolus of IV diltiazem and was started on an infusion. She was admitted to the intensive care unit for further management. She had an elevated [id number] score of 3 so after review of the risks and benefits of systemic anticoagulation we did initiate warfarin. With the diltiazem we were able to titrate up to 20 mg and then achieved good rate control but she remained in atrial flutter. Overnight the drip was decreased down from 20-15 and then down to 10 mg. We continued to have good rate control but she did remain in atrial flutter. Symptomatically she felt pretty good with the slow rate. We did review potential treatment options including continued infusion of the diltiazem versus a electrical cardioversion given the short duration of her arrhythmia. We did elect to proceed with the synchronized cardioversion and she was successfully cardioverted with 100 J. We administered oral metoprolol and oral diltiazem after she had woke up from the anesthesia. Her vital signs have remained stable and she has remained in a sinus rhythm. She is stable and safe for discharged home at this time. She will be going home with 50 mg of long-acting metoprolol along with 120 mg of long-acting diltiazem. She has been started on warfarin and will be following up at the [facility] early next week. I did encourage her to discuss a referral to see the cardiology folks up in [place] when she sees her primary care next week. She has had a couple episodes of atrial flutter and may be considered for an ablation if medication alone is not successful. At the time of presentation I very strongly suspected that it would take a hospital stay spanning at least 2 midnights to manage her atrial fibrillation. She improved much faster than expected and is ready for discharge after only 1 night in the hospital. This was not unexpected and much faster than anticipated recovery. - Patient Instructions Diet: Heart Healthy Diet Activity: As Tolerated Showering/Bathing: May Shower Notify Provider of: Fever, Increased Pain Other/Special Instructions: 1. Start taking metoprolol succinate 50 mg daily ( dose change). 2. Start taking diltiazem 120 mg daily. 3. Start taking warfarin 5 mg daily (blood thinner to help reduce the risk of stroke with your heart rhythm issues). 4. Follow up with your primary care next week - discuss a referral to cardiology in [place]. 5. Follow up with the [facility] at [facility] early next week to establish care and check your INR level - Discharge Plan *PRESCRIPTION DRUG MONITORING PROGRAM REVIEWED*: Not Applicable *COPY OF PRESCRIPTION DRUG MONITORING REPORT IN PATIENT DEIRDRE: Not Applicable Prescriptions/Med Rec: Diltiazem [Cardizem CD] 120 mg PO DAILY #30 cap.cd Metoprolol Succinate [Toprol XL 50mg] 50 mg PO DAILY #30 tab.er Warfarin [Coumadin] 5 mg PO DAILY@1300 #30 tablet Home Medications: Home Meds Fenofibrate 54 mg PO QAM 10/26/13 [History] Levothyroxine [Synthroid] 100 mcg PO DAILY 10/26/13 [History] predniSONE [Prednisone] 3 mg PO QAM 10/26/13 [History] Cyclobenzaprine [Flexeril] 5 mg PO BEDTIME 02/08/14 [History] Acetaminophen [Tylenol Extra Strength] 500 mg PO BID 06/07/19 [History] Calcium Carbonate [Calcium] 1 tab PO DAILY 06/07/19 [History] Cholecalciferol (Vitamin D3) [Vitamin D3] 1 cap PO DAILY 06/07/19 [History] Cyanocobalamin (Vitamin B12) [Vitamin B12] 1,000 mcg PO BID 06/07/19 [History] Fluticasone Propionate [Flonase Allergy Relief] 2 spray JIMMY DAILY 06/07/19 [ History] Vit A/Vit C/Vit E/Zinc/Copper [Preservision] 1 tab PO DAILY 06/07/19 [History] Ipratropium [Atrovent 0.06% Nasal [place]] 2 sprays NASBOTH BEDTIME 08/10/19 [ History] Diltiazem [Cardizem CD] 120 mg PO DAILY #30 cap.cd 08/11/19 [Rx] Metoprolol Succinate [Toprol XL 50mg] 50 mg PO DAILY #30 tab.er 08/11/19 [Rx] Warfarin [Coumadin] 5 mg PO DAILY@1300 #30 tablet 08/11/19 [Rx] Oxygen Therapy Mode: Room Air Patient Handouts: Atrial Flutter, Electrical Cardioversion Referrals: Tiffanie Crawford PA [Consulting Physician] - 08/18/19 3:00 pm (Please arrive 15 minutes early to register for appointment.) - Discharge Summary/Plan Comment DC Time >30 min.: No - Patient Data Vitals - Most Recent: Last Vital Signs Temp 35.9 C L 08/11/19 11:00 Pulse 65 08/11/19 11:09 Resp 19 08/11/19 13:00 BP 90/55 L 08/11/19 13:00 Pulse Ox 92 L 08/11/19 13:00 Weight - Most Recent: 73.21 kg Lab Results - Last 24 hrs: Laboratory Results - last 24 hr 08/10/19 08/10/19 08/10/19 Range/Units 13:58 13:58 13:58 WBC 8.6 (4.5-11.0) K/uL RBC 5.02 (3.30-5.50) M/uL Hgb 14.5 (12.0-15.0) g/dL Hct 45.2 (36.0-48.0) % MCV 90 (80-98) fL MCH 29 (27-31) pg MCHC 32 (32-36) % Plt Count 366 (150-400) K/uL Neut % (Auto) 69 H (36-66) % Lymph % (Auto) 18 L (24-44) % [place] % (Auto) 12 H (2-6) % Eos % (Auto) 2 (2-4) % Baso % (Auto) 0 (0-1) % PT (9.5-12.0) sec INR (0.80-1.20) Sodium 140 (140-148) mmol/L Potassium 3.8 (3.6-5.2) mmol/L Chloride 104 (100-108) mmol/L Carbon Dioxide 25 (21-32) mmol/L Anion Gap 10.9 (5.0-14.0) mmol/L BUN 10 (7-18) mg/dL Creatinine 0.7 (0.6-1.0) mg/dL Est Cr Clr Drug Dosing 55.35 mL/min Estimated GFR (MDRD) > 60 (>60) Glucose 99 (74-106) mg/dL Calcium 8.9 (8.5-10.1) mg/dL Magnesium 1.7 L (1.8-2.4) mg/dL Total Bilirubin 0.5 (0.2-1.0) mg/dL AST 20 (15-37) U/L ALT 19 (12-78) U/L Alkaline Phosphatase 74 (46-116) U/L Creatine Kinase (26-192) U/L Troponin I (0.000-0.056) ng/mL Total Protein 6.3 L (6.4-8.2) g/dL Albumin 3.4 (3.4-5.0) g/dL Globulin 2.9 (2.3-3.5) g/dL Albumin/Globulin Ratio 1.2 (1.2-2.2) TSH, Ultra Sensitive 1.584 (0.358-3.740) uIU/mL Urine Color (YELLOW) Urine Appearance (CLEAR) Urine pH (5.0-8.0) Ur Specific [place] (1.008-1.030) Urine Protein (NEGATIVE) mg/dL Urine Glucose (UA) (NEGATIVE) mg/dL Urine Ketones (NEGATIVE) mg/dL Urine Occult Blood (NEGATIVE) Urine Nitrite (NEGATIVE) Urine Bilirubin (NEGATIVE) Urine Urobilinogen (0.2-1.0) EU/dL Ur Leukocyte Esterase (NEGATIVE) Urine RBC (0-5) Urine WBC (0-5) Ur Epithelial Cells Amorphous Sediment Urine Bacteria Urine Mucus 08/10/19 08/10/19 08/10/19 Range/Units 14:05 14:20 14:22 WBC (4.5-11.0) K/uL RBC (3.30-5.50) M/uL Hgb (12.0-15.0) g/dL Hct (36.0-48.0) % MCV (80-98) fL MCH (27-31) pg MCHC (32-36) % Plt Count (150-400) K/uL Neut % (Auto) (36-66) % Lymph % (Auto) (24-44) % [place] % (Auto) (2-6) % Eos % (Auto) (2-4) % Baso % (Auto) (0-1) % PT 10.3 (9.5-12.0) sec INR 0.95 (0.80-1.20) Sodium (140-148) mmol/L Potassium (3.6-5.2) mmol/L Chloride (100-108) mmol/L Carbon Dioxide (21-32) mmol/L Anion Gap (5.0-14.0) mmol/L BUN (7-18) mg/dL Creatinine (0.6-1.0) mg/dL Est Cr Clr Drug Dosing mL/min Estimated GFR (MDRD) (>60) Glucose (74-106) mg/dL Calcium (8.5-10.1) mg/dL Magnesium (1.8-2.4) mg/dL Total Bilirubin (0.2-1.0) mg/dL AST (15-37) U/L ALT (12-78) U/L Alkaline Phosphatase (46-116) U/L Creatine Kinase 32 (26-192) U/L Troponin I (0.000-0.056) ng/mL Total Protein (6.4-8.2) g/dL Albumin (3.4-5.0) g/dL Globulin (2.3-3.5) g/dL Albumin/Globulin Ratio (1.2-2.2) TSH, Ultra Sensitive (0.358-3.740) uIU/mL Urine Color Yellow (YELLOW) Urine Appearance Clear (CLEAR) Urine pH 7.0 (5.0-8.0) Ur Specific [place] 1.015 (1.008-1.030) Urine Protein Negative (NEGATIVE) mg/dL Urine Glucose (UA) Negative (NEGATIVE) mg/dL Urine Ketones Negative (NEGATIVE) mg/dL Urine Occult Blood Negative (NEGATIVE) Urine Nitrite Negative (NEGATIVE) Urine Bilirubin Negative (NEGATIVE) Urine Urobilinogen 0.2 (0.2-1.0) EU/dL Ur Leukocyte Esterase Negative (NEGATIVE) Urine RBC Not seen (0-5) Urine WBC 0-5 (0-5) Ur Epithelial Cells Rare Amorphous Sediment Not seen Urine Bacteria Not seen Urine Mucus Not seen 08/10/19 08/11/19 08/11/19 Range/Units 14:57 05:59 05:59 WBC (4.5-11.0) K/uL RBC (3.30-5.50) M/uL Hgb (12.0-15.0) g/dL Hct (36.0-48.0) % MCV (80-98) fL MCH (27-31) pg MCHC (32-36) % Plt Count (150-400) K/uL Neut % (Auto) (36-66) % Lymph % (Auto) (24-44) % [place] % (Auto) (2-6) % Eos % (Auto) (2-4) % Baso % (Auto) (0-1) % PT 10.9 (9.5-12.0) sec INR 1.01 (0.80-1.20) Sodium 141 (140-148) mmol/L Potassium 3.9 (3.6-5.2) mmol/L Chloride 107 (100-108) mmol/L Carbon Dioxide 24 (21-32) mmol/L Anion Gap 10.0 (5.0-14.0) mmol/L BUN 11 (7-18) mg/dL Creatinine 0.7 (0.6-1.0) mg/dL Est Cr Clr Drug Dosing 62.33 mL/min Estimated GFR (MDRD) > 60 (>60) Glucose 98 (74-106) mg/dL Calcium 8.2 L (8.5-10.1) mg/dL Magnesium (1.8-2.4) mg/dL Total Bilirubin (0.2-1.0) mg/dL AST (15-37) U/L ALT (12-78) U/L Alkaline Phosphatase (46-116) U/L Creatine Kinase (26-192) U/L Troponin I < 0.017 (0.000-0.056) ng/mL Total Protein (6.4-8.2) g/dL Albumin (3.4-5.0) g/dL Globulin (2.3-3.5) g/dL Albumin/Globulin Ratio (1.2-2.2) TSH, Ultra Sensitive (0.358-3.740) uIU/mL Urine Color (YELLOW) Urine Appearance (CLEAR) Urine pH (5.0-8.0) Ur Specific [place] (1.008-1.030) Urine Protein (NEGATIVE) mg/dL Urine Glucose (UA) (NEGATIVE) mg/dL Urine Ketones (NEGATIVE) mg/dL Urine Occult Blood (NEGATIVE) Urine Nitrite (NEGATIVE) Urine Bilirubin (NEGATIVE) Urine Urobilinogen (0.2-1.0) EU/dL Ur Leukocyte Esterase (NEGATIVE) Urine RBC (0-5) Urine WBC (0-5) Ur Epithelial Cells Amorphous Sediment Urine Bacteria Urine Mucus Med Orders - Current: Current Medications Acetaminophen (Tylenol Extra Strength) 500 mg PO BID [facility] Last Admin: 08/11/19 11:09 Dose: 500 mg Acetaminophen (Tylenol) 650 mg PO Q4H PRN PRN Reason: Pain (Mild 1-3)/fever Cyanocobalamin (Vitamin B12) 1,000 mcg PO BID [facility] Last Admin: 08/11/19 11:09 Dose: 1,000 mcg Cyclobenzaprine HCl (Flexeril) 5 mg PO BEDTIME [facility] Last Admin: 08/10/19 20:53 Dose: 5 mg Diltiazem HCl (Cardizem Cd) 120 mg PO DAILY [facility] Last Admin: 08/11/19 11:08 Dose: 120 mg Enoxaparin Sodium (Lovenox) 40 mg SUBCUT Q24H [facility] Last Admin: 08/10/19 17:36 Dose: 40 mg Fenofibrate (Fenofibrate) 54 mg PO QAM [facility] Last Admin: 08/11/19 11:10 Dose: 54 mg Sodium Chloride (Normal Saline) 1,000 mls @ 25 mls/hr IV ASDIRECTED [facility] Ipratropium [place] (Atrovent 0.06% Nasal [place]) 0 ml JIMMY BEDTIME [facility] Last Admin: 08/10/19 20:52 Dose: 2 spray Levothyroxine Sodium (Synthroid) 100 mcg PO DAILY@0730 [facility] Last Admin: 08/11/19 06:45 Dose: 100 mcg Lorazepam (Ativan) 0.5 mg IVPUSH Q4H PRN PRN Reason: Nausea/Vomiting Metoprolol Succinate (Toprol Xl) 50 mg PO DAILY [facility] Last Admin: 08/11/19 11:09 Dose: 50 mg Ondansetron HCl (Zofran Odt) 4 mg PO Q6H PRN PRN Reason: Nausea able to take PO Ondansetron HCl (Zofran) 4 mg IV Q6H PRN PRN Reason: Nausea/Vomiting Prednisone (Prednisone) 3 mg PO QAM [facility] Last Admin: 08/11/19 11:08 Dose: 3 mg Senna/Docusate Sodium (Senna Plus) 1 tab PO BID PRN PRN Reason: Constipation Warfarin Sodium (Coumadin) 5 mg PO DAILY@1300 [facility] Discontinued Medications Diltiazem HCl (Diltiazem) 10 mg IVPUSH ONETIME ONE Stop: 08/10/19 14:31 Last Admin: 08/10/19 14:51 Dose: 10 mg Sodium Chloride (Normal Saline) 1,000 mls @ 125 mls/hr IV ASDIRECTED [facility] Last Admin: 08/10/19 14:47 Dose: 125 mls/hr Diltiazem HCl 100 mg/ Sodium (Chloride) 100 mls @ 5 mls/hr IV TITRATE [facility]; Protocol Last Admin: 08/11/19 03:37 Dose: 10 mg/hr, 10 mls/hr Magnesium Sulfate 2 gm/ Premix 50 mls @ 25 mls/hr IV ONETIME ONE Stop: 08/10/19 17:44 Last Admin: 08/10/19 15:40 Dose: 25 mls/hr Metoprolol Succinate (Toprol Xl) 100 mg PO DAILY [facility] Propofol (Diprivan 20 Ml) Confirm Administered Dose 200 mg .ROUTE .STK-MED ONE Stop: 08/11/19 08:59 Warfarin Sodium (Coumadin) 5 mg PO ONETIME ONE Stop: 08/10/19 18:01 Last Admin: 08/10/19 17:36 Dose: 5 mg - Exam Quality Assessment: Denies: Supplemental Oxygen General: Reports: Alert, Oriented, Cooperative, No Acute Distress Lungs: Reports: Normal Respiratory Effort Cardiovascular: Reports: Regular Rate, Regular Rhythm
--- NOTE | 2019-08-11 15:22 | PCM.PRNOTE ---
- Free Text/Narrative Note: Date of service: 08/11/19 Proposed procedure: Synchronized cardioversion Preprocedure diagnosis: Paroxysmal atrial Flutter with rapid ventricular response Post procedure diagnosis: Paroxysmal atrial flutter with rapid ventricular response Indication for procedure: Tai was evaluated today for management atrial flutter with rapid ventricular response. Synchronized cardioversion was recommended as a primary treatment. Description of the procedure: Tai is currently located in the intensive care unit in room 124. We have reviewed the potential risks of electrical cardioversion including but not limited to: Superficial skin thapa, ineffective treatment, other arrhythmias, reaction to anesthesia medications or potentially asystole. The benefits of the procedure have also been reviewed. At this time the patient wishes to proceed with electrical cardioversion. All necessary pre- procedure information and paperwork has been provided and completed, respectively. The patient was connected to cardioversion pads and monitoring equipment per protocol. Prior to the procedure, a timeout was held with nursing and anesthesia present to confirm the right patient and right procedure. Once appropriate anesthesia was applied the machine was charged to 100 Joules and a synchronized electrical shock was applied. The patient was successfully converted to normal sinus rhythm based on telemetry monitoring. Anticoagulation should be continued for at least one month post cardioversion. There were no immediate complications noted from the procedure. Post procedure EKG is pending at the time of dictation. Morris Dougherty M.D.
== END 2019-08-11 14:30 | disposition home or self-care (01) | DRG 310 ==
LOC: JP.ED 13:20 → JP.ICU 16:21
PROVIDERS: ADMIT Internal Medicine; ATTEND Internal Medicine
PROC: 5A2204Z Restoration of Cardiac Rhythm, Single (ICD-10-PCS; principal; 2019-08-11)
DX: I48.92 Unspecified atrial flutter (principal); H35.30 Unspecified macular degeneration; K44.9 Diaphragmatic hernia without obstruction or gangrene; M19.90 Unspecified osteoarthritis, unspecified site; E03.9 Hypothyroidism, unspecified; M35.3 Polymyalgia rheumatica; M06.9 Rheumatoid arthritis, unspecified; M79.7 Fibromyalgia; G62.9 Polyneuropathy, unspecified; I48.91 Unspecified atrial fibrillation; Z79.890 Hormone replacement therapy; Z79.52 Long term (current) use of systemic steroids; Z90.49 Acquired absence of other specified parts of digestive tract; Z98.49 Cataract extraction status, unspecified eye; Z79.899 Other long term (current) drug therapy; Z88.0 Allergy status to penicillin
CPT/HCPCS: 36415; 80053; 81001; 82550; 83735; 84443; 84484; 85025; 85610; 93005; J3475; J3490 ×2; J7030; J7050; 80048; 99284; A9270-GY; J1650; J2704

== ENCOUNTER 2019-08-30 07:12 | Emergency (ER) | payer MEDICARE ==
--- NOTE | 2019-08-30 08:01 | EDM.PDOC ---
ED HPI GENERAL MEDICAL PROBLEM - General Chief Complaint: Cardiovascular Problem Stated Complaint: HEART RACE Time Seen by Provider: 08/30/19 07:40 Source of Information: Reports: Patient, Family History Limitations: Reports: No Limitations - History of Present Illness INITIAL COMMENTS - FREE TEXT/NARRATIVE: 79-year-old female took her levothyroxine at 1 AM after forgetting to take it at her normal time, then woke at 2 AM with palpitations. She had a recent persistent episode of atrial fibrillation requiring hospitalization and synchronized cardioversion about 1 month ago, but is done well since. She has no chest pain, no shortness of breath, denies nausea or vomiting or other symptoms. She has not taken her morning medications including metoprolol. She had one small breakfast bar. Onset: Sudden Duration: Hour(s): (5 hours ago) Associated Symptoms: Reports: No Other Symptoms - Related Data Allergies Allergy/AdvReac Type Severity Reaction Status Date / Time Penicillins Allergy Intermediate Rash Verified 08/30/19 07:30 Home Meds: Home Meds Fenofibrate 54 mg PO QAM 10/26/13 [History] Levothyroxine [Synthroid] 100 mcg PO DAILY 10/26/13 [History] predniSONE [Prednisone] 3 mg PO QAM 10/26/13 [History] Cyclobenzaprine [Flexeril] 5 mg PO BEDTIME 02/08/14 [History] Acetaminophen [Tylenol Extra Strength] 500 mg PO BID 06/07/19 [History] Calcium Carbonate [Calcium] 1 tab PO DAILY 06/07/19 [History] Cholecalciferol (Vitamin D3) [Vitamin D3] 1 cap PO DAILY 06/07/19 [History] Cyanocobalamin (Vitamin B12) [Vitamin B12] 1,000 mcg PO BID 06/07/19 [History] Fluticasone Propionate [Flonase Allergy Relief] 2 spray JIMMY DAILY 06/07/19 [ History] Vit A/Vit C/Vit E/Zinc/Copper [Preservision] 1 tab PO DAILY 06/07/19 [History] Ipratropium [Atrovent 0.06% Nasal [place]] 2 sprays NASBOTH BEDTIME 08/10/19 [ History] Diltiazem [Cardizem CD] 120 mg PO DAILY #30 cap.cd 08/11/19 [Rx] Metoprolol Succinate [Toprol XL 50mg] 50 mg PO DAILY #30 tab.er 08/11/19 [Rx] Warfarin [Coumadin] 5 mg PO DAILY@1300 #30 tablet 08/11/19 [Rx] Past Medical History HEENT History: Reports: Cataract, Macular Degeneration Cardiovascular History: Reports: Other (See Below) Other Cardiovascular History: a fib 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 History: Reports: Hiatal Hernia 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: Musculoskeletal History: Reports: Osteoarthritis, RA, Other (See Below) Other Musculoskeletal History: polymyalgia Neurological History: Reports: Neuropathy, Peripheral - Past Surgical History HEENT Surgical History: Reports: Cataract Surgery GI Surgical History: Reports: Cholecystectomy Female Surgical History: Reports: Section Musculoskeletal Surgical History: Reports: Other (See Below) Other Musculoskeletal Surgeries/Procedures:: ankle surgery Social & Family History - Tobacco Use Smoking Status *Q: Never Smoker - Caffeine Use Caffeine Use: Reports: None ED ROS GENERAL - Review of Systems Review Of Systems: See Below Constitutional: Denies: Fever, Chills, Malaise HEENT: Reports: Other (Has very poor vision due to macular degeneration) Respiratory: Denies: Shortness of Breath Cardiovascular: Reports: Palpitations. Denies: Chest Pain GI/Abdominal: Denies: Abdominal Pain, Nausea, Vomiting Skin: Reports: No Symptoms Neurological: Denies: Headache ED EXAM, GENERAL - Physical Exam Exam: See Below Exam Limited By: No Limitations General Appearance: Alert, No Apparent Distress Head: Atraumatic Respiratory/Chest: No Respiratory Distress, Lungs Clear Cardiovascular: Regular Rate, Rhythm, Tachycardia, Extra Beats GI/Abdominal: Soft, Non-Tender Extremities: No Pedal Edema Neurological: Alert, Oriented Psychiatric: Normal Affect, Normal Mood Skin Exam: Warm, Dry Course - Vital Signs Last Recorded V/S: Last Vital Signs Temp 96.8 F L 08/30/19 07:42 Pulse 125 H 08/30/19 07:42 Resp 14 08/30/19 07:42 BP 129/77 08/30/19 07:42 Pulse Ox 96 08/30/19 07:42 - Re-Assessments/Exams Free Text/Narrative Re-Assessment/Exam: 08/30/19 08:18 Patient was placed on monitor and storage bin tender and observed for 10 minutes. She was in a persistent 2-1 atrial flutter with a rate of 124-126, occasional sinus beat or PVC. Otherwise she was asymptomatic. Her chart was reviewed from a few weeks ago when she had her atrial fibrillation, at that time she was started on Cardizem and her metoprolol was decreased from 100 to 50 mg. Her INR was checked yesterday and it was 3.9, she held her Coumadin last night. After discussing her situation, the patient elected to take an extra metoprolol this morning so a total of 100 mg, monitor her pulse and rhythm, and return later this afternoon in a fasting state if she does not convert on her own. A carotid body massage and vagal maneuvers were attempted that did show some slowing and a few sinus beats but she did not convert. Departure - Departure Time of Disposition: 08:07 Disposition: Home, Self-Care 01 Clinical Impression: Atrial fibrillation and flutter Instructions: Atrial Flutter Referrals: Tiffanie Crawford PA [Primary Care Provider] - Forms: ED Department Discharge Care Plan Goals: Take 100 mg of metoprolol this morning along with your regular medications, and return to the emergency room later today after not having anything to eat for 4 hours if you feel you are still in an irregular rhythm. Sepsis Event Note - Evaluation Sepsis Screening Result: No Definite Risk - Focused Exam Vital Signs: Vital Signs Temp Pulse Resp BP Pulse Ox 08/30/19 07:42 96.8 F L 125 H 14 129/77 96 Date Exam was Performed: 08/30/19 Time Exam was Performed: 08:15
== END 2019-08-30 08:07 | disposition home or self-care (01) ==
LOC: JP.ED 07:12
DX: I48.92 Unspecified atrial flutter (principal); G62.9 Polyneuropathy, unspecified; Z79.01 Long term (current) use of anticoagulants; Z79.899 Other long term (current) drug therapy; Z88.0 Allergy status to penicillin
CPT/HCPCS: 99284

== ENCOUNTER 2019-08-30 10:33 | Emergency (ER) | payer MEDICARE ==
[2019-08-30] MEDS ORDERED: Propofol 200 MG/20 ML SDV IVPUSH ONE (10:37)
[2019-08-30] MEDS ORDERED: Sodium Chloride 0.9% 1,000 ML IV SCH (10:45)
--- NOTE | 2019-08-30 10:52 | EDM.PDOC ---
ED HPI GENERAL MEDICAL PROBLEM - General Stated Complaint: RAPIDS HEART RATE Time Seen by Provider: 08/30/19 10:40 Source of Information: Reports: Patient, Family History Limitations: Reports: No Limitations - History of Present Illness INITIAL COMMENTS - FREE TEXT/NARRATIVE: 79-year-old female who was seen earlier this morning with atrial flutter returns in an n.p.o. state still having palpitations and still in atrial flutter with a rate of 126. No shortness of breath or chest pain, she has not developed any new symptoms. She was told to return for elective cardioversion if symptoms do not resolve spontaneously after extra metoprolol. Onset: Sudden Duration: Hour(s): (Palpitations started 9 hours ago) Associated Symptoms: Reports: No Other Symptoms - Related Data Allergies Allergy/AdvReac Type Severity Reaction Status Date / Time Penicillins Allergy Intermediate Rash Verified 08/30/19 10:52 Home Meds: Home Meds Fenofibrate 54 mg PO QAM 10/26/13 [History] Levothyroxine [Synthroid] 100 mcg PO DAILY 10/26/13 [History] predniSONE [Prednisone] 3 mg PO QAM 10/26/13 [History] Cyclobenzaprine [Flexeril] 5 mg PO BEDTIME 02/08/14 [History] Acetaminophen [Tylenol Extra Strength] 500 mg PO BID 06/07/19 [History] Calcium Carbonate [Calcium] 1 tab PO DAILY 06/07/19 [History] Cholecalciferol (Vitamin D3) [Vitamin D3] 1 cap PO DAILY 06/07/19 [History] Cyanocobalamin (Vitamin B12) [Vitamin B12] 1,000 mcg PO BID 06/07/19 [History] Fluticasone Propionate [Flonase Allergy Relief] 2 spray JIMMY DAILY 06/07/19 [ History] Vit A/Vit C/Vit E/Zinc/Copper [Preservision] 1 tab PO DAILY 06/07/19 [History] Ipratropium [Atrovent 0.06% Nasal [place]] 2 sprays NASBOTH BEDTIME 08/10/19 [ History] Diltiazem [Cardizem CD] 120 mg PO DAILY #30 cap.cd 08/11/19 [Rx] Metoprolol Succinate [Toprol XL 50mg] 50 mg PO DAILY #30 tab.er 08/11/19 [Rx] Warfarin [Coumadin] 5 mg PO DAILY@1300 #30 tablet 08/11/19 [Rx] Past Medical History HEENT History: Reports: Cataract, Macular Degeneration Cardiovascular History: Reports: Other (See Below) Other Cardiovascular History: a fib 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 History: Reports: Hiatal Hernia 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: Musculoskeletal History: Reports: Osteoarthritis, RA, Other (See Below) Other Musculoskeletal History: polymyalgia Neurological History: Reports: Neuropathy, Peripheral - Past Surgical History HEENT Surgical History: Reports: Cataract Surgery GI Surgical History: Reports: Cholecystectomy Female Surgical History: Reports: Section Musculoskeletal Surgical History: Reports: Other (See Below) Other Musculoskeletal Surgeries/Procedures:: ankle surgery Social & Family History - Caffeine Use Caffeine Use: Reports: None ED ROS GENERAL - Review of Systems Review Of Systems: See Below Constitutional: Denies: Fever Respiratory: Denies: Shortness of Breath Cardiovascular: Reports: Palpitations. Denies: Chest Pain GI/Abdominal: Denies: Nausea, Vomiting ED EXAM, GENERAL - Physical Exam Exam: See Below Exam Limited By: No Limitations General Appearance: Alert, No Apparent Distress Respiratory/Chest: No Respiratory Distress Cardiovascular: Regular Rate, Rhythm, Tachycardia Psychiatric: Normal Affect, Normal Mood Skin Exam: Warm, Dry Course - Vital Signs Last Recorded V/S: Last Vital Signs Temp 97.3 F 08/30/19 11:04 Pulse 127 H 08/30/19 11:04 Resp 14 08/30/19 11:04 BP 138/92 H 08/30/19 11:04 Pulse Ox 96 08/30/19 11:04 - Orders/Labs/Meds Meds: Medications Discontinued Medications Generic Name Dose Route Start Last Admin Trade Name Nathen PRN Reason Stop Dose Admin Sodium Chloride 1,000 mls @ 500 mls/hr 08/30/19 10:45 08/30/19 10:55 Normal Saline IV 500 mls/hr ASDIRECTED ARGENIS Administration Propofol 80 mg 08/30/19 10:37 08/30/19 10:54 Diprivan 20 Ml IVPUSH 08/30/19 10:38 200 mg ONETIME ONE Administration - Re-Assessments/Exams Free Text/Narrative Re-Assessment/Exam: 08/30/19 10:51 Monitor confirmed continuing atrial flutter with a rate of 126. Preparations were made for elective cardioversion using propofol. Dr. Champion was consulted to assist. Normal saline at 500 cc an hour was initiated and the plan is to use 80 mg of propofol. Consent was obtained. 08/30/19 11:05 Excellent sedation was achieved with 60 mg of propofol, 1 synchronized cardioversion with 100 J converted the patient to sinus rhythm. She woke without complications within 10 minutes. She has an appointment with cardiology on Wednesday. She can return if symptoms recur. Departure - Departure Time of Disposition: 11:52 Disposition: Home, Self-Care 01 Clinical Impression: Atrial flutter Qualifiers: Atrial flutter type: typical Qualified Code(s): I48.3 - Typical atrial flutter - Discharge Information Instructions: Electrical Cardioversion, Care After, Atrial Flutter Referrals: Tiffanie Crawford PA [Primary Care Provider] - Forms: ED Department Discharge Care Plan Goals: Recheck with cardiology next week as scheduled. Return sooner if symptoms recur and are persistent. Sepsis Event Note - Focused Exam Vital Signs: Vital Signs Temp Pulse Resp BP Pulse Ox 08/30/19 11:04 97.3 F 127 H 14 138/92 H 96 Date Exam was Performed: 08/30/19 Time Exam was Performed: 13:08
== END 2019-08-30 12:06 | disposition home or self-care (01) ==
LOC: JP.ED 10:33
DX: I48.3 Typical atrial flutter (principal); G62.9 Polyneuropathy, unspecified; Z88.0 Allergy status to penicillin; Z79.899 Other long term (current) drug therapy; Z79.01 Long term (current) use of anticoagulants
CPT/HCPCS: 92960; 96360; 99284; J2704; J7030

== ENCOUNTER 2019-09-17 05:01 | Emergency (ER) | payer MEDICARE ==
[2019-09-17] MEDS ORDERED: Propofol 200 MG/20 ML SDV IVPUSH ONE (05:31)
--- NOTE | 2019-09-17 05:35 | EDM.PDOC ---
ED HPI GENERAL MEDICAL PROBLEM - General Chief Complaint: Cardiovascular Problem Stated Complaint: FAST HEART RATE Time Seen by Provider: 09/17/19 05:15 Source of Information: Reports: Patient, Family History Limitations: Reports: No Limitations - History of Present Illness INITIAL COMMENTS - FREE TEXT/NARRATIVE: 79-year-old female has been having recurring episodes of atrial flutter several times over the past 3 months. She does not tolerate it well although she does not get chest pain or shortness of breath. She is very uncomfortable, she has responded well to cardioversion twice. 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 She woke up at 3 AM again with palpitations. No other symptoms. Onset: Unknown/Unsure Associated Symptoms: Reports: No Other Symptoms - Related Data Allergies Allergy/AdvReac Type Severity Reaction Status Date / Time Penicillins Allergy Intermediate Rash Verified 09/17/19 05:13 Home Meds: Home Meds Fenofibrate 54 mg PO QAM 10/26/13 [History] Levothyroxine [Synthroid] 75 mcg PO DAILY 10/26/13 [History] Cyclobenzaprine [Flexeril] 10 mg PO BEDTIME 02/08/14 [History] Calcium Carbonate [Calcium] 1 tab PO BID 06/07/19 [History] Cholecalciferol (Vitamin D3) [Vitamin D3] 1,000 cap PO DAILY 06/07/19 [History] Cyanocobalamin (Vitamin B12) [Vitamin B12] 500 mcg PO ASDIRECTED 06/07/19 [ History] Fluticasone Propionate [Flonase Allergy Relief] 2 spray JIMMY DAILY 06/07/19 [ History] Vit A/Vit C/Vit E/Zinc/Copper [Preservision] 1 tab PO DAILY 06/07/19 [History] Ipratropium [Atrovent 0.06% Nasal [place]] 2 sprays NASBOTH BEDTIME 08/10/19 [ History] Diltiazem [Cardizem CD] 120 mg PO DAILY #30 cap.cd 08/11/19 [Rx] Warfarin [Coumadin] 5 mg PO DAILY@1300 #30 tablet 08/11/19 [Rx] Acetaminophen [Tylenol] 2 tab PO BID 09/17/19 [History] Metoprolol Succinate [Toprol XL 50mg] 100 mg PO DAILY 09/17/19 [History] predniSONE [Prednisone] 3 tab PO DAILY 09/17/19 [History] Past Medical History HEENT History: Reports: Cataract, Macular Degeneration Cardiovascular History: Reports: Other (See Below) Other Cardiovascular History: a fib 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 History: Reports: Hiatal Hernia 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: Musculoskeletal History: Reports: Osteoarthritis, RA, Other (See Below) Other Musculoskeletal History: polymyalgia Neurological History: Reports: Neuropathy, Peripheral - Infectious Disease History Infectious Disease History: Reports: Chicken Pox, Measles - Past Surgical History HEENT Surgical History: Reports: Cataract Surgery GI Surgical History: Reports: Cholecystectomy Female Surgical History: Reports: Section Musculoskeletal Surgical History: Reports: Other (See Below) Other Musculoskeletal Surgeries/Procedures:: ankle surgery Social & Family History - Family History Family Medical History: Noncontributory - Tobacco Use Smoking Status *Q: Never Smoker - Caffeine Use Caffeine Use: Reports: None - Recreational Drug Use Recreational Drug Use: No ED ROS GENERAL - Review of Systems Review Of Systems: See Below Constitutional: Denies: Fever, Chills Respiratory: Denies: Shortness of Breath Cardiovascular: Denies: Chest Pain GI/Abdominal: Denies: Nausea, Vomiting Neurological: Reports: No Symptoms ED EXAM, GENERAL - Physical Exam Exam: See Below Exam Limited By: No Limitations General Appearance: Alert, No Apparent Distress Respiratory/Chest: No Respiratory Distress, Lungs Clear Cardiovascular: Regular Rate, Rhythm, Tachycardia Extremities: Other (Just a trace of ankle edema) Neurological: Alert, Oriented Psychiatric: Anxious Skin Exam: Warm, Dry EKG INTERPRETATION EKG Date: 09/17/19 Time: 05:10 Rhythm: A-Flutter ST-T: Normal Course - Vital Signs Last Recorded V/S: Last Vital Signs Temp 96.0 F L 09/17/19 05:21 Pulse 126 H 09/17/19 05:21 Resp 16 09/17/19 05:21 BP 130/85 09/17/19 05:21 Pulse Ox 95 09/17/19 05:21 - Orders/Labs/Meds Orders: Active Orders 24 hr Category Date Time Status EKG Documentation Completion [RC] STAT Care 09/17/19 05:00 Active EKG 12 Lead [EK] Routine Ther 09/17/19 05:00 Ordered Meds: Medications Discontinued Medications Generic Name Dose Route Start Last Admin Trade Name Freq PRN Reason Stop Dose Admin Propofol 60 mg 09/17/19 05:31 Diprivan 20 Ml IVPUSH 09/17/19 05:32 ONETIME ONE - Re-Assessments/Exams Free Text/Narrative Re-Assessment/Exam: 09/17/19 05:34 EKG and cardiac monitoring confirmed atrial flutter at a rate of 125 which is exactly what she had last time. She does have brief spurts of atrial fibrillation, but most of the time she stays in the atrial flutter. Anesthesia was called, electrical synchronized cardioversion will be attempted which she usually responds well to. 09/17/19 05:53 With the assistance of anesthesia, the patient was given 60 mg of IV propofol and was cardioverted with 100 J of synchronized cardioversion. She recovered well. She was discharged with her when she returned to [facility], and will follow-up with cardiology as scheduled. Departure - Departure Time of Disposition: 06:33 Disposition: Home, Self-Care 01 Clinical Impression: Atrial fibrillation and flutter Instructions: Atrial Flutter Referrals: Tiffanie Crawford PA [Primary Care Provider] - Forms: ED Department Discharge Care Plan Goals: Continue your current medications and recheck with cardiology as scheduled. Return to the emergency room if you redevelop symptoms or have other concerns. Sepsis Event Note - Evaluation Sepsis Screening Result: No Definite Risk - Focused Exam Vital Signs: Vital Signs Temp Pulse Resp BP Pulse Ox 09/17/19 05:21 96.0 F L 126 H 16 130/85 95 Date Exam was Performed: 09/17/19 Time Exam was Performed: 06:35 - My Orders Last 24 Hours: My Active Orders 09/17/19 05:00 EKG Documentation Completion [RC] STAT EKG 12 Lead [EK] Routine - Assessment/Plan Last 24 Hours: My Active Orders 09/17/19 05:00 EKG Documentation Completion [RC] STAT EKG 12 Lead [EK] Routine
[2019-09-17] MEDS ORDERED: Propofol 200 MG/20 ML SDV IV ONE (05:39)
== END 2019-09-17 06:34 | disposition home or self-care (01) ==
LOC: JP.ED 05:01
DX: I48.91 Unspecified atrial fibrillation (principal); I48.92 Unspecified atrial flutter; Z79.01 Long term (current) use of anticoagulants; Z79.899 Other long term (current) drug therapy; Z88.0 Allergy status to penicillin
CPT/HCPCS: 92960; 93005; 99283; 99284; J2704

== ENCOUNTER 2020-04-23 03:03 | Emergency (ER) | payer MEDICARE ==
--- NOTE | 2020-04-23 03:52 | EDM.PDOC ---
ED HPI GENERAL MEDICAL PROBLEM - General Chief Complaint: Cardiovascular Problem Stated Complaint: IRREGULAR HEARTBEAT Time Seen by Provider: 04/23/20 03:47 Source of Information: Reports: Patient History Limitations: Reports: No Limitations - History of Present Illness INITIAL COMMENTS - FREE TEXT/NARRATIVE: PT WOKE UP AND SUDDENLY WENT INTO A RAPID RHYTHM. sHE JUST HAD COVID AND HER JUST OF COVID. 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: fleckinide taken denies Pain Score (Numeric/FACES): 0 - Related Data Allergies Allergy/AdvReac Type Severity Reaction Status Date / Time Penicillins Allergy Intermediate Rash Verified 04/23/20 03:22 Home Meds: Home Meds Fenofibrate 54 mg PO QAM 10/26/13 [History] Levothyroxine [Synthroid] 75 mcg PO DAILY 10/26/13 [History] Cyclobenzaprine [Flexeril] 10 mg PO BEDTIME 02/08/14 [History] Calcium Carbonate [Calcium] 1 tab PO BID 06/07/19 [History] Cholecalciferol (Vitamin D3) [Vitamin D3] 1,000 cap PO DAILY 06/07/19 [History] Cyanocobalamin (Vitamin B12) [Vitamin B12] 500 mcg PO ASDIRECTED 06/07/19 [History] Fluticasone Propionate [Flonase Allergy Relief] 2 spray JIMMY DAILY 06/07/19 [History] Vit A/Vit C/Vit E/Zinc/Copper [Preservision] 1 tab PO DAILY 06/07/19 [History] Diltiazem [Cardizem CD] 120 mg PO DAILY #30 cap.cd 08/11/19 [Rx] Warfarin [Coumadin] 5 mg PO DAILY@1300 #30 tablet 08/11/19 [Rx] Acetaminophen [Tylenol] 2 tab PO BID 09/17/19 [History] Metoprolol Succinate [Toprol XL 50mg] 100 mg PO DAILY 09/17/19 [History] predniSONE [Prednisone] 3 mg PO DAILY 09/17/19 [History] Flecainide Acetate 1 tab PO BID 04/23/20 [History] Past Medical History HEENT History: Reports: Cataract, Macular Degeneration Cardiovascular History: Reports: Other (See Below) Other Cardiovascular History: a fib 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 History: Reports: 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: Musculoskeletal History: Reports: Osteoarthritis, RA, Other (See Below) Other Musculoskeletal History: polymyalgia Neurological History: Reports: Neuropathy, Peripheral - Infectious Disease History Infectious Disease History: Reports: Chicken Pox, Measles - Past Surgical History HEENT Surgical History: Reports: Cataract Surgery GI Surgical History: Reports: Cholecystectomy Female Surgical History: Reports: Section Musculoskeletal Surgical History: Reports: Other (See Below) Other Musculoskeletal Surgeries/Procedures:: ankle surgery Social & Family History - Family History Family Medical History: No Pertinent Family History - Tobacco Use Tobacco Use Status *Q: Never Tobacco User Second Hand Smoke Exposure: No - Caffeine Use Caffeine Use: Reports: None - Recreational Drug Use Recreational Drug Use: No ED ROS GENERAL - Review of Systems Review Of Systems: See Below Constitutional: Reports: No Symptoms HEENT: Reports: No Symptoms Respiratory: Reports: Shortness of Breath Cardiovascular: Reports: Palpitations Endocrine: Reports: No Symptoms GI/Abdominal: Reports: No Symptoms : Reports: No Symptoms Musculoskeletal: Reports: No Symptoms Skin: Reports: No Symptoms ED EXAM, GENERAL - Physical Exam Exam: See Below Free Text/Narrative:: PT ARRIVED WITH A HISTORY OF GOING INTO ATRIAL FIB. sHE DID NOT HAVE CHEST P AIN. sHE TOOK A HER FLECANID AND CAME TO THE ER. sHE IS ON COUMADIN Exam Limited By: No Limitations General Appearance: Alert, Anxious Ears: Normal TMs Nose: Normal Inspection Throat/Mouth: Normal Inspection Head: Atraumatic Neck: Lymphadenopathy (L) Respiratory/Chest: No Respiratory Distress Cardiovascular: Irregularly Irregular GI/Abdominal: Soft (Female) Exam: Deferred Rectal (Female) Exam: Deferred Back Exam: Normal Inspection Extremities: Other ( SLIGHT PUFFINESS) Neurological: Alert, Oriented, Normal Cognition Psychiatric: Normal Affect Course - Vital Signs Last Recorded V/S: Last Vital Signs Temp 36.2 C 04/23/20 03:42 Pulse 77 04/23/20 03:42 Resp 16 04/23/20 03:42 BP 124/78 04/23/20 03:42 Pulse Ox 97 04/23/20 03:42 - Orders/Labs/Meds Labs: Laboratory Tests 04/23/20 04/23/20 04/23/20 Range/Units 03:47 03:50 03:50 WBC 4.0 L (4.5-11.0) K/uL RBC 4.38 (3.30-5.50) M/uL Hgb 11.6 L D (12.0-15.0) g/dL Hct 37.9 (36.0-48.0) % MCV 87 (80-98) fL MCH 27 (27-31) pg MCHC 31 L (32-36) % Plt Count 378 (150-400) K/uL Neut % (Auto) 58 (36-66) % Lymph % (Auto) 26 (24-44) % [place] % (Auto) 15 H (2-6) % Eos % (Auto) 1 L (2-4) % Baso % (Auto) 0 (0-1) % PT (9.5-12.0) sec INR (0.80-1.20) Sodium 145 (140-148) mmol/L Potassium 3.1 L (3.6-5.2) mmol/L Chloride 106 (100-108) mmol/L Carbon Dioxide 26 (21-32) mmol/L Anion Gap 16.1 H (5.0-14.0) mmol/L BUN 13 (7-18) mg/dL Creatinine 0.7 (0.6-1.0) mg/dL Est Cr Clr Drug Dosing 54.43 mL/min Estimated GFR (MDRD) > 60 (>60) Glucose 108 H (74-106) mg/dL Calcium 8.7 (8.5-10.1) mg/dL TSH, Ultra Sensitive 3.218 (0.358-3.740) uIU/mL 04/23/20 Range/Units 03:51 WBC (4.5-11.0) K/uL RBC (3.30-5.50) M/uL Hgb (12.0-15.0) g/dL Hct (36.0-48.0) % MCV (80-98) fL MCH (27-31) pg MCHC (32-36) % Plt Count (150-400) K/uL Neut % (Auto) (36-66) % Lymph % (Auto) (24-44) % [place] % (Auto) (2-6) % Eos % (Auto) (2-4) % Baso % (Auto) (0-1) % PT 37.9 H (9.5-12.0) sec INR 3.56 H D (0.80-1.20) Sodium (140-148) mmol/L Potassium (3.6-5.2) mmol/L Chloride (100-108) mmol/L Carbon Dioxide (21-32) mmol/L Anion Gap (5.0-14.0) mmol/L BUN (7-18) mg/dL Creatinine (0.6-1.0) mg/dL Est Cr Clr Drug Dosing mL/min Estimated GFR (MDRD) (>60) Glucose (74-106) mg/dL Calcium (8.5-10.1) mg/dL TSH, Ultra Sensitive (0.358-3.740) uIU/mL Meds: Medications Discontinued Medications Generic Name Dose Route Start Last Admin Trade Name Freq PRN Reason Stop Dose Admin Potassium Chloride 20 meq 04/23/20 04:54 04/23/20 05:01 Klor-Con M20 PO 04/23/20 04:55 20 meq ONETIME ONE Administration - Re-Assessments/Exams Free Text/Narrative Re-Assessment/Exam: 04/23/20 03:53 JUST HR EKG WAS DONE SHE CONVERTED TO A SINUS RHYTHM. Departure - Departure Time of Disposition: 05:35 Disposition: Home, Self-Care 01 Condition: Fair Clinical Impression: Atrial fibrillation Instructions: Potassium Content of Foods, Atrial Fibrillation, [id number] Referrals: Ben Richardson MD [Primary Care Provider] - Forms: ED Department Discharge Care Plan Goals: CONTINUE SAME MEDS Sepsis Event Note (ED) - Evaluation Sepsis Screening Result: No Definite Risk
[2020-04-23] MEDS ORDERED: Potassium Chloride 20 MEQ Tab.ER PO ONE (04:54)
== END 2020-04-23 05:00 | disposition home or self-care (01) ==
LOC: JP.ED 03:03
DX: I48.91 Unspecified atrial fibrillation (principal); Z88.0 Allergy status to penicillin; Z79.01 Long term (current) use of anticoagulants
CPT/HCPCS: 36415; 80048; 84443; 85025; 85610; 93010; 99285; A9270

== ENCOUNTER 2020-06-05 16:15 | Emergency (ER) | payer MEDICARE ==
--- NOTE | 2020-06-05 17:12 | EDM.PDOC ---
ED HPI GENERAL MEDICAL PROBLEM - General Chief Complaint: Lower Extremity Injury/Pain Stated Complaint: FELL HIT RIGHT LEG, AND HEAD Time Seen by Provider: 06/05/20 17:08 Source of Information: Reports: Patient, Family, RN Notes Reviewed History Limitations: Reports: No Limitations - History of Present Illness INITIAL COMMENTS - FREE TEXT/NARRATIVE: 80-year-old female presents emergency department a complaint of right ankle pain, she is a history of significant fracture to this ankle back in the early 70s with fusion. Earlier today she twisted it had a fall she denies hitting her head no loss of consciousness she cannot bear weight on this ankle and does have significant bruising and swelling Right Ankle Pain Score (Numeric/FACES): 6 - Related Data Allergies Allergy/AdvReac Type Severity Reaction Status Date / Time Penicillins Allergy Intermediate Rash Verified 04/23/20 03:22 Home Meds: Home Meds Fenofibrate 54 mg PO QAM 10/26/13 [History] Levothyroxine [Synthroid] 75 mcg PO DAILY 10/26/13 [History] Cyclobenzaprine [Flexeril] 10 mg PO BEDTIME 02/08/14 [History] Calcium Carbonate [Calcium] 1 tab PO BID 06/07/19 [History] Cholecalciferol (Vitamin D3) [Vitamin D3] 1,000 cap PO DAILY 06/07/19 [History] Cyanocobalamin (Vitamin B12) [Vitamin B12] 500 mcg PO DAILY 06/07/19 [History] Fluticasone Propionate [Flonase Allergy Relief] 2 spray JIMMY DAILY 06/07/19 [History] Vit A/Vit C/Vit E/Zinc/Copper [Preservision] 1 tab PO BID 06/07/19 [History] Acetaminophen [Tylenol] 2 tab PO BID 09/17/19 [History] Metoprolol Succinate [Toprol XL 50mg] 50 mg PO DAILY 09/17/19 [History] Flecainide Acetate 1 tab PO BID 04/23/20 [History] Warfarin [Coumadin] 1.25 mg PO BEDTIME 06/05/20 [History] Past Medical History HEENT History: Reports: Cataract, Macular Degeneration Cardiovascular History: Reports: Other (See Below) Other Cardiovascular History: a fib 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 History: Reports: Hiatal Hernia 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: Musculoskeletal History: Reports: Osteoarthritis, RA, Other (See Below) Other Musculoskeletal History: polymyalgia Neurological History: Reports: Neuropathy, Peripheral - Infectious Disease History Infectious Disease History: Reports: Chicken Pox, Measles - Past Surgical History HEENT Surgical History: Reports: Cataract Surgery GI Surgical History: Reports: Cholecystectomy Female Surgical History: Reports: Section Musculoskeletal Surgical History: Reports: Other (See Below) Other Musculoskeletal Surgeries/Procedures:: ankle surgery Social & Family History - Family History Family Medical History: No Pertinent Family History - Tobacco Use Tobacco Use Status *Q: Never Tobacco User - Caffeine Use Caffeine Use: Reports: None - Recreational Drug Use Recreational Drug Use: No Review of Systems - Review of Systems Review Of Systems: See Below Musculoskeletal: Reports: Joint Pain (Right ankle) Skin: Reports: Bruising ED EXAM, GENERAL - Physical Exam Exam: See Below Free Text/Narrative:: Examination of the right ankle I do appreciate edema in the ankle as well as some ecchymosis on the lateral malleolus she does have range of motion it is limited and painful pedal pulses +1 sensation is intact Exam Limited By: No Limitations General Appearance: Alert, WD/WN, No Apparent Distress Course - Vital Signs Last Recorded V/S: Last Vital Signs Temp 97 F 06/05/20 17:05 Pulse 83 06/05/20 17:05 Resp 14 06/05/20 17:05 BP 132/68 06/05/20 17:05 Pulse Ox 100 06/05/20 17:05 Departure - Departure Time of Disposition: 18:18 Disposition: Home, Self-Care 01 Condition: Fair Clinical Impression: Right ankle sprain Qualifiers: Encounter type: initial encounter Involved ligament of ankle: unspecified ligament Qualified Code(s): S93.401A - Sprain of unspecified ligament of right ankle, initial encounter - Discharge Information Instructions: Ankle Sprain Referrals: Ben Richardson MD [Primary Care Provider] - Forms: ED Department Discharge Additional Instructions: Continue to use rest ice and elevation, please followup with your primary care provider in 3-5 days if not better, please call return to the emergency department with worsening of symptoms. Sepsis Event Note (ED) - Evaluation Sepsis Screening Result: No Definite Risk - Focused Exam Vital Signs: Vital Signs Temp Pulse Resp BP Pulse Ox 06/05/20 17:05 97 F 83 14 132/68 100 06/05/20 16:40 97 F 83 14 132/68 100 - Assessment/Plan Plan: Assessment Acuity = acute Site and laterality = right ankle sprain Etiology = trauma Manifestations = none Location of injury = Home Lab values = ankle x-ray reveals no acute process Plan She will continue to use rest ice and elevation follow-up primary care 3 to 5 days if not better This note was dictated using [employer] voice recognition software please call with any questions on syntax or grammar.
--- NOTE | 2020-06-05 18:12 | CRLCR ---
INDICATION: Twisting injury. Pain. COMPARISON: 11/21/2009 right ankle radiographs. FINDINGS/IMPRESSION: Chronic-appearing deformities of the distal right tibia and fibula due to healing of previously demonstrated fracture. No definite acute fracture identified. Severe DJD of the tibiotalar joint, as before. Mild diffuse soft tissue swelling, nonspecific. Dictated by Dequan Hernandez MD @ 06/05/2020 6:10:02 PM Dictated by: Dequan Hernandez MD @ 06/05/2020 18:11:58 (Electronically Signed)
== END 2020-06-05 18:46 | disposition home or self-care (01) ==
LOC: JP.ED 16:15
DX: S93.401A Sprain of unspecified ligament of right ankle, initial encounter (principal); I48.91 Unspecified atrial fibrillation; G62.9 Polyneuropathy, unspecified; Z79.899 Other long term (current) drug therapy; Z79.01 Long term (current) use of anticoagulants; Z88.0 Allergy status to penicillin; X50.1XXA Overexertion from prolonged static or awkward postures, initial encounter
CPT/HCPCS: 73610-RT; 99283-25

== ENCOUNTER 2020-06-11 22:27 | Observation (INO) | payer MEDICARE ==
--- NOTE | 2020-06-11 22:40 | EDM.PDOC ---
ED HPI GENERAL MEDICAL PROBLEM - General Chief Complaint: General Stated Complaint: MED[facility] Time Seen by Provider: 06/11/20 22:30 Source of Information: Reports: Patient, EMS, Old Records History Limitations: Reports: No Limitations - History of Present Illness INITIAL COMMENTS - FREE TEXT/NARRATIVE: 80 yo female lives at a local assisted living facility. She has been falling a lot lately including today. Has no complaints of pain from this recent fall. Is on warfarin. 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: Other (see below) (none) - Related Data Allergies Allergy/AdvReac Type Severity Reaction Status Date / Time Penicillins Allergy Intermediate Rash Verified 06/11/20 23:41 Home Meds: Home Meds Fenofibrate 54 mg PO QAM 10/26/13 [History] Levothyroxine [Synthroid] 75 mcg PO DAILY 10/26/13 [History] Cyclobenzaprine [Flexeril] 10 mg PO BEDTIME 02/08/14 [History] Calcium Carbonate [Calcium] 1 tab PO BID 06/07/19 [History] Cholecalciferol (Vitamin D3) [Vitamin D3] 1,000 cap PO DAILY 06/07/19 [History] Cyanocobalamin (Vitamin B12) [Vitamin B12] 500 mcg PO DAILY 06/07/19 [History] Fluticasone Propionate [Flonase Allergy Relief] 2 spray JIMMY DAILY 06/07/19 [H istory] Vit A/Vit C/Vit E/Zinc/Copper [Preservision] 1 tab PO BID 06/07/19 [History] Acetaminophen [Tylenol] 2 tab PO BID 09/17/19 [History] Metoprolol Succinate [Toprol XL 50mg] 50 mg PO DAILY 09/17/19 [History] Flecainide Acetate 1 tab PO BID 04/23/20 [History] Warfarin [Coumadin] 1.25 mg PO BEDTIME 06/05/20 [History] Past Medical History HEENT History: Reports: Cataract, Macular Degeneration Cardiovascular History: Reports: Other (See Below) Other Cardiovascular History: a fib 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 History: Reports: Hiatal Hernia 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: Musculoskeletal History: Reports: Osteoarthritis, RA, Other (See Below) Other Musculoskeletal History: polymyalgia Neurological History: Reports: Neuropathy, Peripheral - Infectious Disease History Infectious Disease History: Reports: Chicken Pox, Measles - Past Surgical History HEENT Surgical History: Reports: Cataract Surgery GI Surgical History: Reports: Cholecystectomy Female Surgical History: Reports: Section Musculoskeletal Surgical History: Reports: Other (See Below) Other Musculoskeletal Surgeries/Procedures:: ankle surgery Social & Family History - Family History Family Medical History: No Pertinent Family History - Caffeine Use Caffeine Use: Reports: None ED ROS GENERAL - Review of Systems Review Of Systems: See Below Constitutional: Reports: No Symptoms HEENT: Reports: No Symptoms Respiratory: Reports: No Symptoms Cardiovascular: Reports: No Symptoms GI/Abdominal: Reports: No Symptoms : Reports: No Symptoms Musculoskeletal: Reports: No Symptoms Skin: Reports: Bruising Neurological: Reports: No Symptoms ED EXAM, GENERAL - Physical Exam Exam: See Below Exam Limited By: No Limitations General Appearance: Alert, WD/WN, No Apparent Distress Eye Exam: Bilateral Eye: Normal Inspection Ears: Normal External Exam, Normal Canal, Hearing Grossly Normal Ear Exam: Bilateral Ear: Auricle Normal, Canal Normal Nose: Normal Inspection, No Blood Throat/Mouth: Normal Inspection, Normal Lips, Normal Oropharynx, Normal Voice, No Airway Compromise Head: Atraumatic, Normocephalic Neck: Normal Inspection Respiratory/Chest: No Respiratory Distress, Lungs Clear, Normal Breath Sounds, No Accessory Muscle Use Cardiovascular: Regular Rate, Rhythm, No Edema GI/Abdominal: Normal Bowel Sounds, Soft, Non-Tender, No Distention, Other (Stool firm and yellow on rectal exam) Back Exam: Normal Inspection. No: CVA Tenderness (R), CVA Tenderness (L) Extremities: Normal Inspection, Normal Range of Motion, Non-Tender, Pedal Edema (R ankle area, chronic). No: No Pedal Edema Neurological: Alert, Oriented, CN II-XII Intact, Normal Cognition, No Motor/Sensory Deficits Psychiatric: Normal Affect, Normal Mood Skin Exam: Warm, Dry, Intact, No Rash, Pallor Course - Vital Signs Last Recorded V/S: Last Vital Signs Temp 36.9 C 06/11/20 23:45 Pulse 85 06/11/20 23:57 Resp 14 06/11/20 23:57 BP 122/75 06/11/20 23:57 Pulse Ox 95 06/11/20 23:57 Orthostatic Blood Pressure [ 91/67 Standing] Orthostatic Blood Pressure [ 121/78 Sitting] Orthostatic Blood Pressure [ 117/69 Supine] - Orders/Labs/Meds Orders: Active Orders 24 hr Category Date Time Status Hemoccult [OCCULT BLOOD DIAGNOSTIC] [OP] Stat Lab 06/12/20 00:25 Ordered UA W/MICROSCOPIC [URIN] Stat Lab 06/11/20 22:35 Ordered Labs: Laboratory Tests 06/11/20 06/11/20 06/11/20 Range/Units 22:47 22:47 22:47 WBC 6.4 (4.5-11.0) K/uL RBC 3.66 (3.30-5.50) M/uL Hgb 9.5 L D (12.0-15.0) g/dL Hct 31.2 L (36.0-48.0) % MCV 85 (80-98) fL MCH 26 L (27-31) pg MCHC 30 L (32-36) % Plt Count 483 H (150-400) K/uL PT 53.2 H (9.5-12.0) sec INR 5.04 H* (0.80-1.20) Sodium 134 L (140-148) mmol/L Potassium 3.6 (3.6-5.2) mmol/L Chloride 100 (100-108) mmol/L Carbon Dioxide 24 (21-32) mmol/L Anion Gap 13.6 (5.0-14.0) mmol/L BUN 18 (7-18) mg/dL Creatinine 0.8 (0.6-1.0) mg/dL Est Cr Clr Drug Dosing 47.62 mL/min Estimated GFR (MDRD) > 60 (>60) Glucose 102 (74-106) mg/dL Calcium 8.7 (8.5-10.1) mg/dL Troponin I < 0.017 (0.000-0.056) ng/mL Departure - Departure Time of Disposition: 00:40 Disposition: Refer to Observation Condition: Fair Clinical Impression: Frequent falls, Elevated INR Anemia Qualifiers: Anemia type: unspecified type Qualified Code(s): D64.9 - Anemia, unspecified - Discharge Information *PRESCRIPTION DRUG MONITORING PROGRAM REVIEWED*: Not Applicable *COPY OF PRESCRIPTION DRUG MONITORING REPORT IN PATIENT DEIRDRE: Not Applicable Referrals: Ben Richardson MD [Primary Care Provider] - Forms: ED Department Discharge Sepsis Event Note (ED) - Focused Exam Vital Signs: Vital Signs Temp Pulse Resp BP Pulse Ox 06/11/20 23:57 85 14 122/75 95 06/11/20 23:45 36.9 C 79 16 89/59 L 97 06/11/20 23:07 79 89/59 L 06/11/20 22:37 36.9 C 87 16 103/67 97 - My Orders Last 24 Hours: My Active Orders 06/11/20 22:35 UA W/MICROSCOPIC [URIN] Stat 06/12/20 00:25 Hemoccult [OCCULT BLOOD DIAGNOSTIC] [OP] Stat - Assessment/Plan Last 24 Hours: My Active Orders 06/11/20 22:35 UA W/MICROSCOPIC [URIN] Stat 06/12/20 00:25 Hemoccult [OCCULT BLOOD DIAGNOSTIC] [OP] Stat
[2020-06-12] MEDS ORDERED: Acetaminophen 325 MG Tab PO PRN (00:55)
[2020-06-12] MEDS: Sodium Chloride 0.9% 1,000 ML IV SCH ×2 (02:28→13:13)
--- NOTE | 2020-06-12 06:56 | HP ---
CHIEF COMPLAINT: Falls. HISTORY OF PRESENT ILLNESS: An 80-year-old who lives in assisted living apparently has been falling. Recently injured her right ankle, hit her head. According to her son who is present today, sounds like she had fallen today, but has been falling over the last few weeks. Sounds like she has been by history orthostatic. Sounds like her INR has been elevated over 5 yesterday and her Coumadin was held. She has not had any active bleeding other than some minor bruising, but because of the falls family decided to send her to the emergency room. She was evaluated by the emergency room physician, was noted to be anemic, which sounds like it has been an ongoing problem with an elevated INR. Sounds like family does not feel that she is safe to go back to assisted living and may be looking at assisted placement upon discharge. The patient denies really any pain. PAST MEDICAL HISTORY: She has had some type of arrhythmia that she is on anticoagulation for which was started about a year ago. No other heart disease. No hypertension. She did have COVID 2 months ago. Did lose her of COVID at that time. Has not still been eating well since COVID infection because of loss of taste and smell and has been slow to recover. MEDICATIONS: 1. Acetaminophen 2 tablets b.i.d. 2. Calcium carbonate 600 mg b.i.d. 3. Vitamin D3 1000 units daily. 4. B12, 500 mcg daily. 5. Cyclobenzaprine 10 mg at bedtime. 6. Fenofibrate 54 mg q.a.m. 7. Flecainide 150 mg b.i.d. 8. Flonase nasal spray 2 sprays in each nostril daily. 9. Levothyroxine 75 mcg daily. 10.Metoprolol XL 50 mg daily. 11.Vitamin A, C, E, zinc, and copper. 12.Warfarin, which is currently on hold. ALLERGIES: PENICILLIN. SOCIAL HISTORY: Denies alcohol or tobacco use. FAMILY HISTORY: Father of CHF. Otherwise, she does not know of anything else. REVIEW OF SYSTEMS: Denies headaches, vision changes, upper respiratory symptoms. No chest pain, shortness of breath, cough, nausea, vomiting, diarrhea, constipation, bloody or black stools. No urinary problems reported. She does have some swelling in her right leg from recent fall. Apparently, did have ankle fracture twice in the past from trauma that may be contributing to it also. Denies any skin problems. No neurologic complaints reported. OBJECTIVE: VITAL SIGNS: Weight 68 kg, temp 36.9, pulse 79 to 85, blood pressure shows 89/59, last blood pressure 122/75, orthostatic blood pressure supine was 117/69, standing was 91/67, respirations 14 to 16, O2 sat 95% to 97% on room air. HEENT: Pharynx, dry mucous membranes. NECK: Supple. No adenopathy, thyromegaly, JVD, or carotid bruits. LUNGS: Clear. HEART: Sounds regular. Did not hear any murmurs. ABDOMEN: Soft, nontender. No mass or organomegaly palpated. EXTREMITIES: She does have some edema in her right ankle, which is just minor discomfort. No significant swelling on the left side. SKIN: Negative. NEUROLOGICAL: Cranial nerves 2-12 grossly intact. Seemed to be alert and oriented. LABORATORY DATA: White count 6.4, hemoglobin 9.5, platelets 483,000. INR 5.04. Sodium 134, potassium 3.6, BUN was 18, creatinine 0.8, glucose 102. Troponin less than 0.017. ASSESSMENT: 1. Falls with orthostasis. She seems to be a little bit dry clinically, so we will give her intravenous fluids and work on potential discharge disposition with discharge planning in the morning. It sounds like family does not feel that she is safe to go home. 2. History of cardiac arrhythmia, exact etiology uncertain, on chronic anticoagulation with elevated INR. We will continue to hold her warfarin, which they started yesterday. Continue with her antiarrhythmic medication. 3. Anemia which may be contributing to this also. Negative Hemoccult here in the emergency room. Admit her under observation. Anticipate less than 2 midnight stays. Transfer care to the hospitalist service in the morning. Yaakov Bourne MD /[id number]
[2020-06-12] MEDS ORDERED: Levothyroxine 25 MCG Tab PO SCH (07:30)
--- NOTE | 2020-06-12 08:27 | PCM.PN ---
- General Info Date of Service: 06/12/20 Subjective Update: There were no acute events overnight following admission. Patient says that she feels a little better today and thinks that her strength is slightly better. No complaints of chest pain or nausea. She does admit to feeling down since her last fall with Covid infection. INR remains supratherapeutic. Vital signs have been stable. Functional Status: Reports: Pain Controlled - Review of Systems General: Reports: Weakness. Denies: Fever - Patient Data Vitals - Most Recent: Last Vital Signs Temp 36.5 C 06/12/20 04:00 Pulse 86 06/12/20 04:00 Resp 16 06/12/20 04:00 BP 113/49 L 06/12/20 04:00 Pulse Ox 95 06/12/20 04:00 Orthostatic Blood Pressure [ 91/67 Standing] Orthostatic Blood Pressure [ 121/78 Sitting] Orthostatic Blood Pressure [ 117/69 Supine] Weight - Most Recent: 67.948 kg Lab Results Last 24 Hours: Laboratory Results - last 24 hr 06/11/20 06/11/20 06/11/20 Range/Units 22:47 22:47 22:47 WBC 6.4 (4.5-11.0) K/uL RBC 3.66 (3.30-5.50) M/uL Hgb 9.5 L D (12.0-15.0) g/dL Hct 31.2 L (36.0-48.0) % MCV 85 (80-98) fL MCH 26 L (27-31) pg MCHC 30 L (32-36) % Plt Count 483 H (150-400) K/uL PT 53.2 H (9.5-12.0) sec INR 5.04 H* (0.80-1.20) Sodium 134 L (140-148) mmol/L Potassium 3.6 (3.6-5.2) mmol/L Chloride 100 (100-108) mmol/L Carbon Dioxide 24 (21-32) mmol/L Anion Gap 13.6 (5.0-14.0) mmol/L BUN 18 (7-18) mg/dL Creatinine 0.8 (0.6-1.0) mg/dL Est Cr Clr Drug Dosing 47.62 mL/min Estimated GFR (MDRD) > 60 (>60) Glucose 102 (74-106) mg/dL Calcium 8.7 (8.5-10.1) mg/dL Troponin I < 0.017 (0.000-0.056) ng/mL 06/12/20 06/12/20 Range/Units 04:30 04:30 WBC 5.6 (4.5-11.0) K/uL RBC 3.29 L (3.30-5.50) M/uL Hgb 8.5 L (12.0-15.0) g/dL Hct 28.1 L (36.0-48.0) % MCV 85 (80-98) fL MCH 26 L (27-31) pg MCHC 30 L (32-36) % Plt Count 472 H (150-400) K/uL PT 50.5 H (9.5-12.0) sec INR 4.78 H* (0.80-1.20) Sodium (140-148) mmol/L Potassium (3.6-5.2) mmol/L Chloride (100-108) mmol/L Carbon Dioxide (21-32) mmol/L Anion Gap (5.0-14.0) mmol/L BUN (7-18) mg/dL Creatinine (0.6-1.0) mg/dL Est Cr Clr Drug Dosing mL/min Estimated GFR (MDRD) (>60) Glucose (74-106) mg/dL Calcium (8.5-10.1) mg/dL Troponin I (0.000-0.056) ng/mL [facility] Results Last 24 Hours: Microbiology 06/12/20 00:25 Stool Occult Blood (CHASE) - Final Stool / Feces - Stool, Formed NEGATIVE OCCULT BLOOD REFERENCE RANGE: NEGATIVE Med Orders - Current: Current Medications Acetaminophen (Tylenol) 650 mg PO Q4H PRN PRN Reason: Pain (Mild 1-3)/fever Calcium Carbonate (Caltrate 600+D 1500 Mg-400 Units) 1 tab PO BID [facility] Cholecalciferol (Vitamin D3) 25 mcg PO DAILY [facility] Cyanocobalamin (Vitamin B12) 500 mcg PO DAILY [facility] Fenofibrate (Fenofibrate) 54 mg PO QAM [facility] Flecainide Acetate (Tambocor) 50 mg PO BID [facility] Fluticasone Propionate (Flonase) 0 gm JIMMY DAILY [facility] Sodium Chloride (Normal Saline) 1,000 mls @ 100 mls/hr IV ASDIRECTED [facility] Last Admin: 06/12/20 02:28 Dose: 100 mls/hr Documented by: Levothyroxine Sodium (Levothyroxine) 75 mcg PO ACBREAKFAST [facility] Metoprolol Succinate (Toprol Xl) 50 mg PO DAILY [facility] Non-Formulary Medication (Vit A/Vit C/Vit E/Zinc/Copper [Preservision]) 1 tab PO BID ARGENIS - Exam Quality Assessment: No: Supplemental Oxygen General: Alert, Oriented, Cooperative, No Acute Distress Lungs: Normal Respiratory Effort. No: Wheezing Cardiovascular: Regular Rate, Regular Rhythm GI/Abdominal Exam: Soft, No Distention Extremities: No Pedal Edema. No: Increased Warmth Skin: Warm, Dry Psy/Mental Status: Alert, Normal Affect Sepsis Event Note - Evaluation Sepsis Screening Result: No Definite Risk - Focused Exam Vital Signs: Vital Signs Temp Pulse Resp BP Pulse Ox 06/12/20 04:00 36.5 C 86 16 113/49 L 95 06/12/20 00:55 36.4 C 83 16 111/55 L 93 L 06/11/20 23:57 85 14 122/75 95 06/11/20 23:45 36.9 C 79 16 89/59 L 97 06/11/20 23:07 79 89/59 L 06/11/20 22:37 36.9 C 87 16 103/67 97 - Problem List Review Problem List Initiated/Reviewed/Updated: Yes - My Orders Last 24 Hours: My Active Orders 06/12/20 08:24 UA W/MICROSCOPIC [URIN] Routine 06/12/20 08:25 Antiembolic Devices [RC] .Routine PT Evaluation and Treatment [CONS] Routine SCD [Sequential Compression Device] [OM.PC] Routine 06/13/20 05:00 BASIC METABOLIC PANEL,BMP [CHEM] Timed CBC W/O DIFF,HEMOGRAM [HEME] Timed (1) INR,PT,PROTHROMBIN TIME [COAG] Timed - Plan Plan:: ASSESSMENT AND PLAN - Generalized weakness with falls-several falls at home and there is concern about her safety at the assisted living facility. No evidence for infection that I can find. There may be some residual weakness from her Covid infection. There could be some contribution from depression after losing her . Intake has not been great. -Physical therapy -UA to see if there is a bladder infection -Continue gentle fluids Paroxysmal atrial fibrillation-she is on flecainide and is chronically anticoagulated. INR is still supratherapeutic. -Hold warfarin today and recheck INR in the morning -Continue flecainide Normocytic anemia-chronic and stable. Maintenance issues - - DVT prophylaxis -warfarin - GI prophylaxis -not indicated - Nutrition -regular - Engle catheter -not indicated Admission justification -patient was referred to observation status for strengthening and hydration. Disposition -I would anticipate discharge home with home care versus subacute rehab after the hospital stay Morris Dougherty M.D.
[2020-06-12] MEDS: Metoprolol Succinate 50 MG Tab.ER*POM PO SCH (10:57)
[2020-06-12] MEDS: FENOFIBRATE 54 MG PO SCH (10:59)
[2020-06-12] MEDS: LEVOTHYROXINE 75 MCG PO SCH (11:00)
[2020-06-12] MEDS: Calcium Carbonate/Vitamin D3 1500 MG-400 Units Tab PO SCH ×2 (11:02→20:11)
[2020-06-12] MEDS: FLECAINIDE 50 MG PO SCH ×2 (11:03→20:07)
[2020-06-12] MEDS: Fluticasone Propionate Nasal Spray 16 GM Bottle NAS SCH (11:03)
[2020-06-12] MEDS: Cholecalciferol (Vitamin D3) 25 MCG Tab PO SCH (11:04)
[2020-06-12] MEDS: Cyanocobalamin (Vitamin B12) 1,000 MCG Tab PO SCH (11:05)
[2020-06-12] MEDS ORDERED: cefTRIAXone 1 GM in Sodium Chloride 0.9% 50 ML IV SCH (13:00)
[2020-06-13] MEDS: Sodium Chloride 0.9% 1,000 ML IV SCH (00:34)
[2020-06-13] MEDS: LEVOTHYROXINE 75 MCG PO SCH (07:25)
[2020-06-13] MEDS ORDERED: Magnesium Hydroxide 400 MG/5 ML Susp 30 ML Cup PO ONE (09:00)
[2020-06-13] MEDS ORDERED: Potassium Chloride 20 MEQ Tab.ER PO ONE (09:00)
[2020-06-13] MEDS: FLECAINIDE 50 MG PO SCH (09:02)
[2020-06-13] MEDS: FENOFIBRATE 54 MG PO SCH (09:02)
[2020-06-13] MEDS: Cholecalciferol (Vitamin D3) 25 MCG Tab PO SCH (09:04)
[2020-06-13] MEDS: Metoprolol Succinate 50 MG Tab.ER*POM PO SCH (09:04)
[2020-06-13] MEDS: Cyanocobalamin (Vitamin B12) 1,000 MCG Tab PO SCH (09:04)
[2020-06-13] MEDS: Calcium Carbonate/Vitamin D3 1500 MG-400 Units Tab PO SCH (09:06)
[2020-06-13] MEDS: Fluticasone Propionate Nasal Spray 16 GM Bottle NAS SCH (09:06)
--- NOTE | 2020-06-13 09:53 | PCM.DCSUM1 ---
Discharge Summary - Hospital Course Brief History: 80-year-old female with paroxysmal atrial fibrillation who presented with recurrent falls and increasing weakness. She was admitted for observation and physical therapy. Diagnosis: Stroke: No - Discharge Data Discharge Date: 06/13/20 Discharge Disposition: DC/Tfer to SNF 03 Condition: Fair - Referral to Home Health Primary Care Physician: Ben Richardson MD - Discharge Diagnosis/Problem(s) (1) Acute cystitis with positive culture SNOMED Code(s): 445583568 ICD Code: N30.00 - ACUTE CYSTITIS WITHOUT HEMATURIA Status: Acute (2) Generalized weakness SNOMED Code(s): 36457520 ICD Code: R53.1 - WEAKNESS Status: Acute (3) Frequent falls SNOMED Code(s): 894529905 ICD Code: R29.6 - REPEATED FALLS Status: Acute (4) Elevated INR SNOMED Code(s): 703218406 ICD Code: R79.1 - ABNORMAL COAGULATION PROFILE Status: Acute (5) Atrial fibrillation SNOMED Code(s): 46255484 ICD Code: I48.91 - UNSPECIFIED ATRIAL FIBRILLATION Status: Chronic Qualifiers: Atrial fibrillation type: paroxysmal Qualified Code(s): I48.0 - Paroxysmal atrial fibrillation (6) Hypothyroidism SNOMED Code(s): 88193241 ICD Code: E03.9 - HYPOTHYROIDISM, UNSPECIFIED Status: Chronic Qualifiers: Hypothyroidism type: acquired Qualified Code(s): E03.9 - Hypothyroidism, unspecified - Patient Summary/Data Consults: Consultations 06/12/20 08:25 PT Evaluation and Treatment [CONS] Routine Please Evaluate and Treat. PT Reason for Consult: Strengthening This query below is only for informational purposes and is not editable. Admission Diagnosis/Problem: Falls 06/12/20 10:40 OT Evaluation and Treatment [CONS] Routine Please Evaluate and Treat. OT Reason for Consult: [facility] placement Pending Discharge: Yes Discharge Disposition: Long-Term Facility This query below is only for informational purposes and is not editable. Admission Diagnosis/Problem: Falls Labs Pending at D/C: Final results of the urine culture which is growing a gram-negative jonnie at the time of discharge Hospital Course: Tai presented to the emergency room with weakness and falls. Initial work-up was fairly unrevealing other than her chronic anemia. A while after admission we were able to obtain a urine sample which did show evidence for infection. She was started on ceftriaxone and a urine culture was set up. She did work with physical therapy. I suspect that her weakness was multifactorial with some chronic deconditioning after her petty with Covid earlier in the year as well as more of an acute deconditioning with the urinary tract infection. Her vital signs have all been stable. She has been working with therapy but remains quite weak. She would benefit from subacute rehab with the goal of going home afterwards. She has been transitioned to oral antibiotics. The plan is for her to be on cephalexin for 4 more days to complete treatment for her urinary tract infection. Her culture is pending at this time and we will contact her if we need to adjust antibiotics but I would anticipate adequate coverage. She has not had any fevers during the hospital stay and has been doing well. She is stable and safe for discharge to the [facility] for [facility] at this time. - Patient Instructions Diet: Regular Diet as Tolerated Activity: As Tolerated Showering/Bathing: May Shower Other/Special Instructions: 1. You were in the hospital for management of acute generalized weakness which is likely a combination of deconditioning with some contribution from a urinary tract infection. You are quite weak and I do recommend subacute rehab at the custod[facility]. I do also recommend additional antibiotic therapy for the urinary tract infection. Please take cephalexin (Keflex) 500 mg twice daily for 7 doses. Your first dose outside of the hospital will be due tonight. 2. I have placed a referral to physical and occupational therapy. They will provide strengthening exercises to help improve both your strength and your endurance while you are in the rehab facility. 3. Check INR on 06/17 - Dx: afib. 4. Stop taking cyclobenzaprin (Flexeril) because this medication can increase weakness, cause confusion and the risks of this medication are larger than the benefits. I have provided a prescription for neftali atonin to use to help with sleep. - Discharge Plan *PRESCRIPTION DRUG MONITORING PROGRAM REVIEWED*: Not Applicable *COPY OF PRESCRIPTION DRUG MONITORING REPORT IN PATIENT DEIRDRE: Not Applicable Prescriptions/Med Rec: Acetaminophen 650 mg PO Q4H PRN #200 tablet PRN Reason: Pain/Fever cephALEXin [Cephalexin] 500 mg PO BID #7 capsule Warfarin [Coumadin] 1 mg PO DAILY #30 tab Melatonin/Pyridoxine HCl (B6) [Melatonin 5 mg Tablet] 1 each PO BEDTIME #30 tablet Home Medications: Home Meds Fenofibrate 54 mg PO QAM 10/26/13 [History] Levothyroxine [Synthroid] 75 mcg PO DAILY 10/26/13 [History] Calcium Carbonate [Calcium] 1 tab PO BID 06/07/19 [History] Cholecalciferol (Vitamin D3) [Vitamin D3] 1,000 cap PO DAILY 06/07/19 [History] Cyanocobalamin (Vitamin B12) [Vitamin B12] 500 mcg PO DAILY 06/07/19 [History] Fluticasone Propionate [Flonase Allergy Relief] 2 spray JIMMY DAILY 06/07/19 [History] Vit A/Vit C/Vit E/Zinc/Copper [Preservision] 1 tab PO BID 06/07/19 [History] Acetaminophen [Tylenol] 2 tab PO BID 09/17/19 [History] Metoprolol Succinate [Toprol XL 50mg] 50 mg PO DAILY 09/17/19 [History] Flecainide Acetate 1 tab PO BID 04/23/20 [History] Acetaminophen 650 mg PO Q4H PRN #200 tablet 06/13/20 [Rx] Melatonin/Pyridoxine HCl (B6) [Melatonin 5 mg Tablet] 1 each PO BEDTIME #30 tablet 06/13/20 [Rx] Warfarin [Coumadin] 1 mg PO DAILY #30 tab 06/13/20 [Rx] cephALEXin [Cephalexin] 500 mg PO BID #7 capsule 06/13/20 [Rx] Oxygen Therapy Mode: Room Air Patient Handouts: Cephalexin tablets or capsules, Weakness Referrals: Ben Richardson MD [Primary Care Provider] - (f/u in 1-2 weeks - f/u hospital stay for UTI and weakness ) - Discharge Summary/Plan Comment DC Time >30 min.: Yes (40-new [facility] discharge ) - Patient Data Vitals - Most Recent: Last Vital Signs Temp 35.8 C L 06/13/20 07:00 Pulse 81 06/13/20 09:04 Resp 18 06/13/20 07:00 BP 111/56 L 06/13/20 09:04 Pulse Ox 94 L 06/13/20 07:00 Orthostatic Blood Pressure [ 91/67 Standing] Orthostatic Blood Pressure [ 121/78 Sitting] Orthostatic Blood Pressure [ 117/69 Supine] Weight - Most Recent: 67.948 kg I&O - Last 24 hours: Intake & Output 06/12/20 06/13/20 06/13/20 22:59 06:59 14:59 Intake Total 1970 1240 700 Output Total 150 50 Balance 1820 1240 650 Lab Results - Last 24 hrs: Laboratory Results - last 24 hr 06/12/20 06/13/20 06/13/20 Range/Units 12:14 05:00 05:00 WBC 5.5 (4.5-11.0) K/uL RBC 3.32 (3.30-5.50) M/uL Hgb 8.6 L (12.0-15.0) g/dL Hct 28.6 L (36.0-48.0) % MCV 86 (80-98) fL MCH 26 L (27-31) pg MCHC 30 L (32-36) % Plt Count 473 H (150-400) K/uL PT 40.8 H (9.5-12.0) sec INR 3.84 H (0.80-1.20) Sodium (140-148) mmol/L Potassium (3.6-5.2) mmol/L Chloride (100-108) mmol/L Carbon Dioxide (21-32) mmol/L Anion Gap (5.0-14.0) mmol/L BUN (7-18) mg/dL Creatinine (0.6-1.0) mg/dL Est Cr Clr Drug Dosing mL/min Estimated GFR (MDRD) (>60) Glucose (74-106) mg/dL Calcium (8.5-10.1) mg/dL Urine Color Yellow (YELLOW) Urine Appearance Turbid A (CLEAR) Urine pH 5.5 (5.0-8.0) Ur Specific [place] >= 1.030 (1.008-1.030) Urine Protein Negative (NEGATIVE) mg/dL Urine Glucose (UA) Negative (NEGATIVE) mg/dL Urine Ketones Trace H (NEGATIVE) mg/dL Urine Occult Blood Negative (NEGATIVE) Urine Nitrite Positive H (NEGATIVE) Urine Bilirubin Negative (NEGATIVE) Urine Urobilinogen 1.0 (0.2-1.0) EU/dL Ur Leukocyte Esterase Trace H (NEGATIVE) Urine RBC 0-5 (0-5) Urine WBC 5-10 H (0-5) Ur Epithelial Cells Few Amorphous Sediment Few Urine Bacteria Many Urine Mucus Few Urine Other 06/13/20 Range/Units 05:00 WBC (4.5-11.0) K/uL RBC (3.30-5.50) M/uL Hgb (12.0-15.0) g/dL Hct (36.0-48.0) % MCV (80-98) fL MCH (27-31) pg MCHC (32-36) % Plt Count (150-400) K/uL PT (9.5-12.0) sec INR (0.80-1.20) Sodium 140 (140-148) mmol/L Potassium 3.5 L (3.6-5.2) mmol/L Chloride 106 (100-108) mmol/L Carbon Dioxide 25 (21-32) mmol/L Anion Gap 12.5 (5.0-14.0) mmol/L BUN 11 (7-18) mg/dL Creatinine 0.6 (0.6-1.0) mg/dL Est Cr Clr Drug Dosing 63.96 mL/min Estimated GFR (MDRD) > 60 (>60) Glucose 87 (74-106) mg/dL Calcium 7.5 L (8.5-10.1) mg/dL Urine Color (YELLOW) Urine Appearance (CLEAR) Urine pH (5.0-8.0) Ur Specific [place] (1.008-1.030) Urine Protein (NEGATIVE) mg/dL Urine Glucose (UA) (NEGATIVE) mg/dL Urine Ketones (NEGATIVE) mg/dL Urine Occult Blood (NEGATIVE) Urine Nitrite (NEGATIVE) Urine Bilirubin (NEGATIVE) Urine Urobilinogen (0.2-1.0) EU/dL Ur Leukocyte Esterase (NEGATIVE) Urine RBC (0-5) Urine WBC (0-5) Ur Epithelial Cells Amorphous Sediment Urine Bacteria Urine Mucus Urine Other PAT Results - Last 24 hrs: Microbiology 06/12/20 12:55 Urine Culture - Preliminary Urine, Clean Catch Med Orders - Current: Current Medications Acetaminophen (Tylenol) 650 mg PO Q4H PRN PRN Reason: Pain (Mild 1-3)/fever Last Admin: 06/13/20 02:53 Dose: 650 mg Documented by: Calcium Carbonate (Caltrate 600+D 1500 Mg-400 Units) 1 tab PO BID ARGENIS Last Admin: 06/13/20 09:06 Dose: 1 tab Documented by: Cephalexin (Keflex) 500 mg PO ONETIME ONE Stop: 06/13/20 10:31 Cholecalciferol (Vitamin D3) 25 mcg PO DAILY [facility] Last Admin: 06/13/20 09:04 Dose: 25 mcg Documented by: Cyanocobalamin (Vitamin B12) 500 mcg PO DAILY [facility] Last Admin: 06/13/20 09:04 Dose: 500 mcg Documented by: Fenofibrate (Fenofibrate) 54 mg PO QAM [facility] Last Admin: 06/13/20 09:02 Dose: 54 mg Documented by: Flecainide Acetate (Tambocor) 50 mg PO BID [facility] Last Admin: 06/13/20 09:02 Dose: 50 mg Documented by: Fluticasone Propionate (Flonase) 0 gm JIMMY DAILY [facility] Last Admin: 06/13/20 09:06 Dose: Not Given Documented by: Metoprolol Succinate (Toprol Xl) 50 mg PO DAILY [facility] Last Admin: 06/13/20 09:04 Dose: 50 mg Documented by: Preservision *Pom* 1 each PO BID [facility] Last Admin: 06/13/20 09:02 Dose: 1 each Documented by: Levothyroxine 75 Mcg (Tab*Pom*) 1 each PO ACBREAKFAST [facility] Last Admin: 06/13/20 07:25 Dose: 1 each Documented by: Discontinued Medications Sodium Chloride (Normal Saline) 1,000 mls @ 100 mls/hr IV ASDIRECTED [facility] Last Admin: 06/13/20 00:34 Dose: 100 mls/hr Documented by: Ceftriaxone Sodium 1 gm/ (Sodium Chloride) 50 mls @ 100 mls/hr IV Q24H [facility] Last Admin: 06/12/20 13:12 Dose: 100 mls/hr Documented by: Ceftriaxone Sodium 1 gm/ (Sodium Chloride) 50 mls @ 100 mls/hr IV Q24H [facility] Magnesium Hydroxide (Milk Of Magnesia) 30 ml PO ONETIME ONE Stop: 06/13/20 09:01 Last Admin: 06/13/20 08:58 Dose: 30 ml Documented by: Potassium Chloride (Klor-Con M20) 40 meq PO ONETIME ONE Stop: 06/13/20 09:01 Last Admin: 06/13/20 08:58 Dose: 40 meq Documented by:
[2020-06-13] MEDS ORDERED: cefTRIAXone 1 GM in Sodium Chloride 0.9% 50 ML IV SCH (10:30)
[2020-06-13] MEDS ORDERED: Cephalexin 250 MG Cap PO ONE (10:30)
== END 2020-06-13 11:00 ==
LOC: JP.ED 22:27 → JP.ICU 06-12 01:08 → JP.MS 06-12 16:56
PROVIDERS: ADMIT Family Medicine; ATTEND Family Medicine
DX: R53.1 Weakness (principal); R29.6 Repeated falls; D64.9 Anemia, unspecified; I48.0 Paroxysmal atrial fibrillation; N30.00 Acute cystitis without hematuria; R79.1 Abnormal coagulation profile; E03.9 Hypothyroidism, unspecified; Z79.01 Long term (current) use of anticoagulants; Z79.899 Other long term (current) drug therapy; Z88.0 Allergy status to penicillin; Z82.49 Family history of ischemic heart disease and other diseases of the circulatory system; W19.XXXA Unspecified fall, initial encounter; Z79.890 Hormone replacement therapy
CPT/HCPCS: 36415; 80048; 81001; 82272; 84484; 85027; 85610; 87086; 87088; 87186; 96365; 97161; 97165; 97530; 97535; 99285; A9270; G0378; J0696; J7030; 99217; 99225; 99284

== ENCOUNTER 2020-07-26 12:49 | Inpatient (IN) | payer MEDICARE ==
--- NOTE | 2020-07-26 13:03 | EDM.PDOC ---
ED HPI GENERAL MEDICAL PROBLEM - General Chief Complaint: Neurological Problem Stated Complaint: [facility] Time Seen by Provider: 07/26/20 12:55 Source of Information: Reports: Patient, EMS, Long-Term Records History Limitations: Reports: Altered Mental Status - History of Present Illness INITIAL COMMENTS - FREE TEXT/NARRATIVE: Aminata is an 80-year-old female presenting from [facility] via EMS for evaluation of altered mental status. The patient reportedly has had several falls recently and is on anticoagulation. Today she was "unresponsive" for nursing staff and they called 911. She arrives to the ED alert and oriented but has significant bruising on the face and left arm, chest and back. She reports that she has had several falls. She also was recently diagnosed with sick euthyroid and severe hypoalbuminemia. She was recently started on ferrous sulfate for anemia thought to be due to iron deficiency. She was also recently started on potassium for hypokalemia and magnesium for hypomagnesemia. She has a history significant for chronic lymphedema in both lower extremities which is treated with lymphedema wraps. The events leading up to the [facility] calling 911 are unknown. - Related Data Allergies Allergy/AdvReac Type Severity Reaction Status Date / Time Penicillins Allergy Intermediate Rash Verified 07/26/20 13:46 Home Meds: Home Meds Fenofibrate 54 mg PO QAM 10/26/13 [History] Levothyroxine [Synthroid] 75 mcg PO DAILY 10/26/13 [History] Calcium Carbonate [Calcium] 1 tab PO BID 06/07/19 [History] Cholecalciferol (Vitamin D3) [Vitamin D3] 1,000 cap PO DAILY 06/07/19 [History] Cyanocobalamin (Vitamin B12) [Vitamin B12] 500 mcg PO DAILY 06/07/19 [History] Fluticasone Propionate [Flonase Allergy Relief] 2 spray JIMMY DAILY 06/07/19 [History] Vit A/Vit C/Vit E/Zinc/Copper [Preservision] 1 tab PO BID 06/07/19 [History] Acetaminophen [Tylenol] 2 tab PO BID 09/17/19 [History] Metoprolol Succinate [Toprol XL 50mg] 50 mg PO DAILY 09/17/19 [History] Flecainide Acetate 1 tab PO BID 04/23/20 [History] Acetaminophen 650 mg PO Q4H PRN #200 tablet 06/13/20 [Rx] Melatonin/Pyridoxine HCl (B6) [Melatonin 5 mg Tablet] 1 each PO BEDTIME #30 tablet 06/13/20 [Rx] Albuterol/Ipratropium [DuoNeb 3.0-0.5 MG/3 ML] 1 ampule INH QID PRN 07/26/20 [History] Ferrous Sulfate [Iron] 1 tab PO DAILY 07/26/20 [History] Furosemide 1 tab PO DAILY 07/26/20 [History] Magnesium Oxide [Magnesium] 1 tab PO DAILY 07/26/20 [History] Potassium Chloride 1 tab PO BID 07/26/20 [History] Warfarin Sodium [Jantoven] 0.5 mg PO DAILY 07/26/20 [History] Warfarin [Coumadin] 1 mg PO ONETIME 07/26/20 [History] Past Medical History HEENT History: Reports: Cataract, Macular Degeneration Cardiovascular History: Reports: Arrhythmia, Other (See Below) Other Cardiovascular History: a fib Respiratory History: Reports: Other (See Below) Other Respiratory History: Covid positive March 2020 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 History: Reports: Hiatal Hernia 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: Musculoskeletal History: Reports: Osteoarthritis, RA, Other (See Below) Other Musculoskeletal History: polymyalgia Neurological History: Reports: Neuropathy, Peripheral - Infectious Disease History Infectious Disease History: Reports: Chicken Pox, Measles - Past Surgical History HEENT Surgical History: Reports: Cataract Surgery GI Surgical History: Reports: Cholecystectomy Female Surgical History: Reports: Section Musculoskeletal Surgical History: Reports: Other (See Below) Other Musculoskeletal Surgeries/Procedures:: ankle surgery Social & Family History - Family History Family Medical History: No Pertinent Family History - Caffeine Use Caffeine Use: Reports: None ED ROS GENERAL - Review of Systems Review Of Systems: See Below Constitutional: Reports: No Symptoms, Other (Recurring falls at the [facility]) HEENT: Reports: Other (Bruising of the face especially under the right eye. Tenderness of the face on the right side.) Respiratory: Reports: Shortness of Breath Cardiovascular: Reports: Edema (History of chronic peripheral lymphedema) Endocrine: Reports: No Symptoms GI/Abdominal: Reports: No Symptoms : Reports: No Symptoms Musculoskeletal: Reports: No Symptoms Skin: Reports: Pallor, Bruising (Large bruising over the left arm, chest and ba ck. Bruising under the right eye) Neurological: Reports: Syncope (Possible syncopal episode today resulting in her being called "unresponsive".), Difficulty Walking (Recurrent falls) Psychiatric: Reports: No Symptoms Hematologic/Lymphatic: Reports: Anemia, Easy Bleeding, Easy Bruising Immunologic: Reports: No Symptoms ED EXAM, GENERAL - Physical Exam Exam: See Below Exam Limited By: No Limitations General Appearance: Alert, No Apparent Distress Eye Exam: Right Eye: Periorbital Changes (Ecchymosis over the zygomatic arch and lower eyelid.), Bilateral Eye: EOMI, PERRL Ears: Normal External Exam, Normal Canal Throat/Mouth: Normal Inspection, Normal Lips, Normal Oropharynx, Normal Voice, No Airway Compromise Head: Normocephalic, Facial Swelling (Right side), Facial Tenderness (Right side) Neck: Normal Inspection, Supple, Non-Tender, Full Range of Motion. No: Tender Lateral, Tender Midline Respiratory/Chest: No Respiratory Distress, Crackles (Bibasilar), Other (Mild tenderness over the left chest) Cardiovascular: Normal Peripheral Pulses, Regular Rate, Rhythm, JVD (4 cm at 90 degrees), Other (Chronic bilateral lower extremity lymphedema with significant swelling above the wraps.) Peripheral Pulses: 2+: Radial (L), Radial (R) GI/Abdominal: Normal Bowel Sounds, Soft, Non-Tender. No: Guarding, Rebound Back Exam: Normal Inspection, Full Range of Motion Extremities: Pedal Edema (Chronic bilateral lymphedema with 4+ pitting edema above the wraps) Neurological: Alert, Oriented, CN II-XII Intact, Normal Cognition, No Motor/Sensory Deficits Psychiatric: Normal Affect, Normal Mood Skin Exam: Warm, Dry, Ecchymosis (Very significant ecchymosis occupying three quarters of the left chest and back. Circumferential ecchymosis of the area of the humerus.), Pallor Lymphatic: No Adenopathy #1 Interpretation EKG Date: 07/26/20 Time: 13:39 Rhythm: NSR (Normal sinus rhythm with a first-degree AV block.) Rate (Beats/Min): 71 [place]: Normal P-Wave: Present (First-degree AV block with a PA interval at 270 ms) QRS: Normal ST-T: Normal QT: Prolonged EKG Interpretation Comments: Low voltage in extremity and precordial leads Course - Vital Signs Last Recorded V/S: Last Vital Signs Temp 36.3 C 07/26/20 12:49 Pulse 74 07/26/20 14:46 Resp 17 07/26/20 14:46 BP 100/52 L 07/26/20 14:46 Pulse Ox 88 L 07/26/20 14:46 - Orders/Labs/Meds Orders: Active Orders 24 hr Category Date Time Status EKG Documentation Completion [RC] ASDIRECTED Care 07/26/20 12:56 Active EKG 12 Lead [EK] Routine Ther 07/26/20 12:55 Ordered Labs: Laboratory Tests 07/26/20 07/26/20 07/26/20 Range/Units 12:55 13:05 13:05 WBC 12.1 H (4.5-11.0) K/uL RBC 3.55 (3.30-5.50) M/uL Hgb 9.1 L (12.0-15.0) g/dL Hct 27.5 L (36.0-48.0) % MCV 78 L (80-98) fL MCH 26 L (27-31) pg MCHC 33 (32-36) % Plt Count 354 (150-400) K/uL Neut % (Auto) 74 H (36-66) % Lymph % (Auto) 8 L (24-44) % [place] % (Auto) 13 H (2-6) % Eos % (Auto) 5 H (2-4) % Baso % (Auto) 0 (0-1) % PT 66.3 H (9.5-12.0) sec INR 6.31 H* D (0.80-1.20) APTT 66.9 H (27.0-36.0) sec Sodium (140-148) mmol/L Potassium (3.6-5.2) mmol/L Chloride (100-108) mmol/L Carbon Dioxide (21-32) mmol/L Anion Gap (5.0-14.0) mmol/L BUN (7-18) mg/dL Creatinine (0.6-1.0) mg/dL Est Cr Clr Drug Dosing Estimated GFR (MDRD) (>60) Glucose (74-106) mg/dL Calcium (8.5-10.1) mg/dL Magnesium (1.8-2.4) mg/dL Total Bilirubin (0.2-1.0) mg/dL AST (15-37) U/L ALT (12-78) U/L Alkaline Phosphatase (46-116) U/L Troponin I (0.000-0.056) ng/mL NT-Pro-B Natriuret Pep (5-450) pg/mL Total Protein (6.4-8.2) g/dL Albumin (3.4-5.0) g/dL Globulin (2.3-3.5) g/dL Albumin/Globulin Ratio (1.2-2.2) Urine Color Other A (YELLOW) Urine Appearance Cloudy A (CLEAR) Urine pH 5.5 (5.0-8.0) Ur Specific [place] >= 1.030 (1.008-1.030) Urine Protein Negative (NEGATIVE) mg/dL Urine Glucose (UA) Negative (NEGATIVE) mg/dL Urine Ketones Negative (NEGATIVE) mg/dL Urine Occult Blood Negative (NEGATIVE) Urine Nitrite Negative (NEGATIVE) Urine Bilirubin Negative (NEGATIVE) Urine Urobilinogen 1.0 (0.2-1.0) EU/dL Ur Leukocyte Esterase Trace H (NEGATIVE) Urine RBC 0-5 (0-5) Urine WBC 5-10 H (0-5) Ur Epithelial Cells Not seen Amorphous Sediment Not seen Urine Bacteria Few Urine Mucus Many Urine Other Influenza Type A RNA (NEGATIVE) RSV RNA (INAAT) (NEGATIVE) Influenza Type B RNA (NEGATIVE) SARS-CoV-2 RNA (TEE) (NEGATIVE) 07/26/20 07/26/20 07/26/20 Range/Units 13:05 13:05 13:05 WBC (4.5-11.0) K/uL RBC (3.30-5.50) M/uL Hgb (12.0-15.0) g/dL Hct (36.0-48.0) % MCV (80-98) fL MCH (27-31) pg MCHC (32-36) % Plt Count (150-400) K/uL Neut % (Auto) (36-66) % Lymph % (Auto) (24-44) % [place] % (Auto) (2-6) % Eos % (Auto) (2-4) % Baso % (Auto) (0-1) % PT (9.5-12.0) sec INR (0.80-1.20) APTT (27.0-36.0) sec Sodium 133 L (140-148) mmol/L Potassium 3.6 (3.6-5.2) mmol/L Chloride 98 L (100-108) mmol/L Carbon Dioxide 29 (21-32) mmol/L Anion Gap 9.6 (5.0-14.0) mmol/L BUN 19 H (7-18) mg/dL Creatinine 0.8 (0.6-1.0) mg/dL Est Cr Clr Drug Dosing TNP Estimated GFR (MDRD) > 60 (>60) Glucose 121 H (74-106) mg/dL Calcium 8.2 L (8.5-10.1) mg/dL Magnesium 1.7 L (1.8-2.4) mg/dL Total Bilirubin 1.0 (0.2-1.0) mg/dL AST 37 (15-37) U/L ALT 27 (12-78) U/L Alkaline Phosphatase 295 H (46-116) U/L Troponin I < 0.017 (0.000-0.056) ng/mL NT-Pro-B Natriuret Pep 09191 H (5-450) pg/mL Total Protein 3.9 L (6.4-8.2) g/dL Albumin 1.5 L (3.4-5.0) g/dL Globulin 2.4 (2.3-3.5) g/dL Albumin/Globulin Ratio 0.6 L (1.2-2.2) Urine Color (YELLOW) Urine Appearance (CLEAR) Urine pH (5.0-8.0) Ur Specific [place] (1.008-1.030) Urine Protein (NEGATIVE) mg/dL Urine Glucose (UA) (NEGATIVE) mg/dL Urine Ketones (NEGATIVE) mg/dL Urine Occult Blood (NEGATIVE) Urine Nitrite (NEGATIVE) Urine Bilirubin (NEGATIVE) Urine Urobilinogen (0.2-1.0) EU/dL Ur Leukocyte Esterase (NEGATIVE) Urine RBC (0-5) Urine WBC (0-5) Ur Epithelial Cells Amorphous Sediment Urine Bacteria Urine Mucus Urine Other Influenza Type A RNA (NEGATIVE) RSV RNA (INAAT) (NEGATIVE) Influenza Type B RNA (NEGATIVE) SARS-CoV-2 RNA (TEE) (NEGATIVE) 07/26/20 Range/Units 14:18 WBC (4.5-11.0) K/uL RBC (3.30-5.50) M/uL Hgb (12.0-15.0) g/dL Hct (36.0-48.0) % MCV (80-98) fL MCH (27-31) pg MCHC (32-36) % Plt Count (150-400) K/uL Neut % (Auto) (36-66) % Lymph % (Auto) (24-44) % [place] % (Auto) (2-6) % Eos % (Auto) (2-4) % Baso % (Auto) (0-1) % PT (9.5-12.0) sec INR (0.80-1.20) APTT (27.0-36.0) sec Sodium (140-148) mmol/L Potassium (3.6-5.2) mmol/L Chloride (100-108) mmol/L Carbon Dioxide (21-32) mmol/L Anion Gap (5.0-14.0) mmol/L BUN (7-18) mg/dL Creatinine (0.6-1.0) mg/dL Est Cr Clr Drug Dosing Estimated GFR (MDRD) (>60) Glucose (74-106) mg/dL Calcium (8.5-10.1) mg/dL Magnesium (1.8-2.4) mg/dL Total Bilirubin (0.2-1.0) mg/dL AST (15-37) U/L ALT (12-78) U/L Alkaline Phosphatase (46-116) U/L Troponin I (0.000-0.056) ng/mL NT-Pro-B Natriuret Pep (5-450) pg/mL Total Protein (6.4-8.2) g/dL Albumin (3.4-5.0) g/dL Globulin (2.3-3.5) g/dL Albumin/Globulin Ratio (1.2-2.2) Urine Color (YELLOW) Urine Appearance (CLEAR) Urine pH (5.0-8.0) Ur Specific [place] (1.008-1.030) Urine Protein (NEGATIVE) mg/dL Urine Glucose (UA) (NEGATIVE) mg/dL Urine Ketones (NEGATIVE) mg/dL Urine Occult Blood (NEGATIVE) Urine Nitrite (NEGATIVE) Urine Bilirubin (NEGATIVE) Urine Urobilinogen (0.2-1.0) EU/dL Ur Leukocyte Esterase (NEGATIVE) Urine RBC (0-5) Urine WBC (0-5) Ur Epithelial Cells Amorphous Sediment Urine Bacteria Urine Mucus Urine Other Influenza Type A RNA Negative (NEGATIVE) RSV RNA (INAAT) Negative (NEGATIVE) Influenza Type B RNA Negative (NEGATIVE) SARS-CoV-2 RNA (TEE) Negative (NEGATIVE) - Radiology Interpretation Free Text/Narrative:: I reviewed the CT of the head with Dr. Staton and there is no acute findings. Patient does have evidence of a old right lacunar infarct and microvascular disease with some generous atrophy with enlargement of the sulci and ventricles. I reviewed the CT of the chest abdomen and pelvis without contrast demonstrating very large pleural effusions that are measuring low [place]oun[place] units equivalent to water or plasma. There is no evidence for blood in the chest. There is groundglass opacities in both lungs as well as bronchial thickening with air bronchograms and atelectasis of the left base. These findings are consistent with Covid lung. There is no evidence for acute fractures of the ribs, back, pelvis, or hips. The patient also has a large hematoma formation adjacent to the left hip extending down the lateral fascia. There is generated compartment volume but no evidence for compartment syndrome. There is no evidence for hip or pelvis fracture. - Re-Assessments/Exams Free Text/Narrative Re-Assessment/Exam: 07/26/20 15:20 I reviewed the patient's labs which show an INR of 6.3 and an elevated PTT. This is likely the cause for her large chest wall contusion, left arm contusion and left hip contusion. In addition, the CT of the chest abdomen and pelvis shows very large bilateral pleural effusions with groundglass opacities in the lung and bronchial thickening with air bronchograms worrisome for COVID-19. A COVID-19 test was obtained and is negative. The patient was recently treated for pneumonia with a 10-day course of Levaquin. These may be the remnants of the Levaquin. Her BNP is markedly elevated at 13,000 220 indicating pleural effusions are likely due to acute on chronic congestive heart failure. The patient also has chronic lymphedema which appears to be worsening and also indicating acute on chronic congestive heart failure. She does have lymphedema wraps but 4+ pitting edema above the wraps. The patient is also complaining of left hip pain and the CT of the abdomen and pelvis show a sizable contusion over the left greater trochanter extending down the extensor fascia eulogio. There is no evidence for fracture in the pelvis or the hip. This too is likely due to her supratherapeutic INR. The patient is anticoagulated for atrial fibrillation/flutter but she appears to be in a normal sinus rhythm with a first-degree AV block raising the concern that maybe she should not be on anticoagulation. CT of the brain did not reveal any acute abnormalities. Although the patient was advertised as being unresponsive, however, when she arrived to the ED via EMS she was alert and oriented without any acute neurologic deficits. She does report having repeated falls over the last couple of days and did have bruising on the face. There was no step-off or significant abnormalities to exam in the face other than some mild tenderness likely due to the bruising. In her current state, I am concerned about sending [facility] back to the [facility] so I discussed the case with Dr. Dougherty who agrees that we should probably bring her in for further observation and to reverse her INR. Likely also need to undergo a thoracentesis as these are sizable pleural effusions. Dr. Dougherty can arrange this with Dr. Enciso. Departure - Departure Time of Disposition: 15:13 Disposition: Admitted As Inpatient 65 Condition: Fair Clinical Impression: Recurrent falls, Supratherapeutic INR, Pleural effusion, Lymphedema Chest wall contusion Qualifiers: Encounter type: initial encounter Laterality: left Qualified Code(s): S20.212A - Contusion of left front wall of thorax, initial encounter Congestive heart failure Qualifiers: Heart failure type: combined systolic and diastolic Heart failure chronicity: acute on chronic Qualified Code(s): I50.43 - Acute on chronic combined systolic (congestive) and diastolic (congestive) heart failure Facial contusion Qualifiers: Encounter type: initial encounter Qualified Code(s): S00.83XA - Contusion of other part of head, initial encounter Contusion of left hip and thigh Qualifiers: Encounter type: initial encounter Qualified Code(s): S70.02XA - Contusion of left hip, initial encounter - Discharge Information *PRESCRIPTION DRUG MONITORING PROGRAM REVIEWED*: Not Applicable *COPY OF PRESCRIPTION DRUG MONITORING REPORT IN PATIENT DEIRDRE: Not Applicable Referrals: Rainer Olivarez MD [Primary Care Provider] - Forms: ED Department Discharge Care Plan Goals: I discussed the case with Dr. Dougherty and we will admit the patient for further care. Sepsis Event Note (ED) - Focused Exam Vital Signs: Vital Signs Temp Pulse Resp BP Pulse Ox 07/26/20 14:46 74 17 100/52 L 88 L 07/26/20 14:16 72 21 H 91/56 L 91 L 07/26/20 13:17 70 22 H 90/47 L 91 L 07/26/20 12:49 36.3 C 78 22 H 103/57 L 94 L - Problem List & Annotations (1) Frequent falls SNOMED Code(s): 016511922 Code(s): R29.6 - REPEATED FALLS Status: Acute Priority: High Current Visit: Yes (2) Chest wall contusion SNOMED Code(s): 30123776 Code(s): S20.219A - CONTUSION OF UNSPECIFIED FRONT WALL OF THORAX, INIT ENCNTR Status: Acute Priority: High Current Visit: Yes Qualifiers: Encounter type: initial encounter Laterality: left Qualified Code(s): S20.212A - Contusion of left front wall of thorax, initial encounter (3) Congestive heart failure SNOMED Code(s): 49677762 Code(s): I50.9 - HEART FAILURE, UNSPECIFIED Status: Chronic Priority: High Current Visit: Yes Qualifiers: Heart failure type: combined systolic and diastolic Heart failure chronicity: acute on chronic Qualified Code(s): I50.43 - Acute on chronic combined systolic (congestive) and diastolic (congestive) heart failure (4) Contusion of left hip and thigh SNOMED Code(s): 662491818 Code(s): S70.02XA - CONTUSION OF LEFT HIP, INITIAL ENCOUNTER; S70.12XA - CONTUSION OF LEFT THIGH, INITIAL ENCOUNTER Status: Acute Priority: High Current Visit: Yes Qualifiers: Encounter type: initial encounter Qualified Code(s): S70.02XA - Contusion of left hip, initial encounter; S70.12XA - Contusion of left thigh, initial encounter (5) Facial contusion SNOMED Code(s): 953571025 Code(s): S00.83XA - CONTUSION OF OTHER PART OF HEAD, INITIAL ENCOUNTER Status: Acute Priority: High Current Visit: Yes Qualifiers: Encounter type: initial encounter Qualified Code(s): S00.83XA - Contusion of other part of head, initial encounter (6) Lymphedema SNOMED Code(s): 084065349 Code(s): I89.0 - LYMPHEDEMA, NOT ELSEWHERE CLASSIFIED Status: Chronic Priority: Medium Current Visit: Yes (7) Pleural effusion SNOMED Code(s): 64559778 Code(s): J90 - PLEURAL EFFUSION, NOT ELSEWHERE CLASSIFIED Status: Acute Priority: High Current Visit: Yes (8) Supratherapeutic INR SNOMED Code(s): 971455561 Code(s): R79.1 - ABNORMAL COAGULATION PROFILE Status: Acute Priority: High Current Visit: Yes - Problem List Review Problem List Initiated/Reviewed/Updated: Yes - My Orders Last 24 Hours: My Active Orders 07/26/20 12:55 EKG 12 Lead [EK] Routine 07/26/20 12:56 EKG Documentation Completion [RC] ASDIRECTED - Assessment/Plan Last 24 Hours: My Active Orders 07/26/20 12:55 EKG 12 Lead [EK] Routine 07/26/20 12:56 EKG Documentation Completion [RC] ASDIRECTED
--- NOTE | 2020-07-26 14:12 | CT ---
Chest Abdomen Pelvis wo Cont CLINICAL HISTORY: Fall, bruising, loss of consciousness TECHNIQUE: Transverse scans were obtained from the thoracic inlet to the pubic crest without contrast. Auto dosage reduction in intervertebral reconstruction techniques were employed COMPARISONS: None FINDINGS: There is moderate motion artifact obscuring detail. The patient has large bilateral pleural effusions. There is atelectasis or consolidation involving the left lower lobe. There are moderate diffuse bilateral pulmonary infiltrates and groundglass opacities suggestive through both mid and upper lung [place]. There is bronchial narrowing and thickening in both perihilar regions and bronchial compression in the left lower lung field There are atherosclerotic changes in the aorta.. No mediastinal mass or lymphadenopathy is identified. There is no significant pericardial effusion. There is a large hiatal hernia. Liver shows no mass or biliary dilatation. Gallbladder is been removed. Spleen has a normal size and shape. The pancreas is free of mass or inflammatory change in the adrenal glands are normal bilaterally. There are cysts on both kidneys. No stones or hydronephrosis is identified. Ureters appear normal as visualized. There are atherosclerotic changes in the aorta.. No retrocrural periaortic or pericaval lymphadenopathy is identified. There is some minimal free fluid in the pelvis. There is diffuse density throughout the subcutaneous tissue along the right abdomen. This may be edema or ecchymosis. This is also seen around the left upper thigh. IMPRESSION: Large bilateral pleural effusions new since 2019 Diffuse bilateral upper and mid lung infiltrates and groundglass opacifications. This may represent pneumonia or pneumonitis Consolidation and atelectasis in the left lower lobe with bronchial narrowing bilaterally Small amount of free pelvic fluid Soft tissue edema or ecchymosis along the right lateral abdomen and in the left upper thigh Previous cholecystectomy
--- NOTE | 2020-07-26 14:22 | CT ---
CLINICAL HISTORY: Altered mentation COMPARISON: None TECHNIQUE: Transverse scans were obtained from the base of the skull through the vertex without IV contrast on a multislice, multidetector CT scanner. Auto dosage reduction and iterative reconstruction techniques employed. FINDINGS: There is some focal low attenuation in the right basal ganglia. This is likely from previous infarct or remote chronology. There are scattered areas of low-attenuation in the periventricular and subcortical white matter which is felt to represent chronic ischemic white matter change There is no mass effect, hemorrhage, or extraaxial collection. The basal cisterns and sulci over the convexities are moderately prominent. The ventricles are prominent. IMPRESSION: Moderate atrophy and chronic ischemic microvascular changes Probable lacunar-type infarct right basal ganglia likely of remote chronology No mass effect or hemorrhage
[2020-07-26 15:07] LABS: CORONAVIRUS COVID-19 NAA NEGATIVE (NEGATIVE)
[2020-07-26] MEDS ORDERED: Phytonadione 10 MG in Sodium Chloride 0.9% 50 ML IV ONE (15:43)
--- NOTE | 2020-07-26 16:00 | PCM.HP.2 ---
H&P History of Present Illness - General Date of Service: 07/26/20 Admit Problem/Dx: Admission Diagnosis/Problem Admission Diagnosis/Problem CHF, Congestive heart failure Source of Information: Patient, Family, Provider History Limitations: Reports: Altered Mental Status (some confusion ) - History of Present Illness Initial Comments - Free Text/Narative: CC: my hip hurts HPI: Aminata presents to the ER today from [facility] with an episode of unresponsiveness. She was responsive on arrival to the emergency room. She has some underlying confusion and dementia making history somewhat difficult to gather. She is able to tell me that she has had a couple of falls recently and family reports this was about 10 days ago. She says she has been coughing some and [facility] notes indicate she has been on levofloxacin for 10 days to treat a suspected pneumonia. She reports new onset of diarrhea over the past day or so. She does not think she has been having any fevers. She does not report feeling short of breath. She feels weak and feels tired. She does not think that she was ever unresponsive earlier in the day but cannot be 100% sure. She does not endorse nausea or abdominal pain. Family reports increasing difficulty with lower extremity edema as well as some arm edema over the past few weeks. She has had recent adjustments to her diuretics and an echocar diogram was planned. Work-up in the emergency room revealed a supratherapeutic INR at 6.6. She has anasarca and severe lower extremity edema. She has moderate to large bilateral pleural effusions. She has a hemoglobin of 9 and a large hematoma along the left side of her chest extending down to the lower back and into the tissues of the lower leg. She will be admitted for management of decompensated congestive heart failure with large pleural effusions as well as a supratherapeutic INR, large hematoma and anemia due to blood loss. - Related Data Allergies/Adverse Reactions: Allergies Allergy/AdvReac Type Severity Reaction Status Date / Time Penicillins Allergy Intermediate Rash Verified 07/26/20 13:46 Home Medications: Home Meds Fenofibrate 54 mg PO QAM 10/26/13 [History] Levothyroxine [Synthroid] 75 mcg PO DAILY 10/26/13 [History] Calcium Carbonate [Calcium] 1 tab PO BID 06/07/19 [History] Cholecalciferol (Vitamin D3) [Vitamin D3] 1,000 cap PO DAILY 06/07/19 [History] Cyanocobalamin (Vitamin B12) [Vitamin B12] 500 mcg PO DAILY 06/07/19 [History] Fluticasone Propionate [Flonase Allergy Relief] 2 spray JIMMY DAILY 06/07/19 [History] Vit A/Vit C/Vit E/Zinc/Copper [Preservision] 1 tab PO BID 06/07/19 [History] Acetaminophen [Tylenol] 2 tab PO BID 09/17/19 [History] Metoprolol Succinate [Toprol XL 50mg] 50 mg PO DAILY 09/17/19 [History] Flecainide Acetate 1 tab PO BID 04/23/20 [History] Acetaminophen 650 mg PO Q4H PRN #200 tablet 06/13/20 [Rx] Melatonin/Pyridoxine HCl (B6) [Melatonin 5 mg Tablet] 1 each PO BEDTIME #30 tablet 06/13/20 [Rx] Albuterol/Ipratropium [DuoNeb 3.0-0.5 MG/3 ML] 1 ampule INH QID PRN 07/26/20 [History] Ferrous Sulfate [Iron] 1 tab PO DAILY 07/26/20 [History] Furosemide 1 tab PO DAILY 07/26/20 [History] Magnesium Oxide [Magnesium] 1 tab PO DAILY 07/26/20 [History] Potassium Chloride 1 tab PO BID 07/26/20 [History] Warfarin Sodium [Jantoven] 0.5 mg PO DAILY 07/26/20 [History] Warfarin [Coumadin] 1 mg PO ONETIME 07/26/20 [History] Past Medical History HEENT History: Reports: Cataract, Macular Degeneration Cardiovascular History: Reports: Arrhythmia, Other (See Below) Other Cardiovascular History: a fib Respiratory History: Reports: Other (See Below) Other Respiratory History: Covid positive March 2020 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 History: Reports: Hiatal Hernia [employer] History: Reports: Musculoskeletal History: Reports: Osteoarthritis, RA, Other (See Below) Other Musculoskeletal History: polymyalgia Neurological History: Reports: Neuropathy, Peripheral - Infectious Disease History Infectious Disease History: Reports: Chicken Pox, Measles - Past Surgical History HEENT Surgical History: Reports: Cataract Surgery GI Surgical History: Reports: Cholecystectomy Female Surgical History: Reports: Section Musculoskeletal Surgical History: Reports: Other (See Below) Other Musculoskeletal Surgeries/Procedures:: ankle surgery Social & Family History - Family History Family Medical History: No Pertinent Family History - Tobacco Use Tobacco Use Status *Q: Never Tobacco User - Caffeine Use Caffeine Use: Reports: None - Alcohol Use Alcohol Use History: No H&P Review of Systems - Review of Systems: Review Of Systems: See Below Free Text/Narrative: A complete 12 point review of systems was obtained. Pertinent positives and negatives are noted in the history of present illness. All other systems were reviewed and were negative except as noted. Much of the history gathered from the patient but some from her family. Exam - Exam Exam: See Below - Vital Signs Vital Signs: Last Vital Signs Temp 36.3 C 07/26/20 12:49 Pulse 74 07/26/20 14:46 Resp 17 07/26/20 14:46 BP 100/52 L 07/26/20 14:46 Pulse Ox 88 L 07/26/20 14:46 Weight: 81.647 kg - Exam Quality Assessment: Supplemental Oxygen General: Alert, Cooperative. No: Oriented, Mild Distress HEENT: Conjunctiva Clear. No: Mucosa Moist & Dooling (Dry), Scleral Icterus Neck: Supple, Trachea Midline, JVD Lungs: Normal Respiratory Effort, Decreased Breath Sounds (Both bases), Crackles (Few mid lung bilaterally) Cardiovascular: Regular Rate, Regular Rhythm, Systolic Murmur, Gallop/S3 GI/Abdominal Exam: Normal Bowel Sounds, Soft, Non-Tender, No Distention Extremities: Pedal Edema (Massive pitting edema from just below the knee to the buttocks bilaterally), Other (Both lower legs are wrapped with compression wraps from the knee distally) Skin: Warm, Dry, Ecchymosis (Right cheek with moderate swelling. Large dark ecchymosis from the left axilla down the left flank and lower back down to the upper buttocks) Neuro Extensive - Mental Status: Alert, Nl Response to Commands. No: Oriented x3 Neuro Extensive - Motor, Sensory, Reflexes: No: Dysarthria, Abnormal Motor, Tremor Psychiatric: Alert, Normal Affect - Patient Data Lab Results Last 24 hrs: Laboratory Results - last 24 hr 07/26/20 07/26/20 07/26/20 Range/Units 12:55 13:05 13:05 WBC 12.1 H (4.5-11.0) K/uL RBC 3.55 (3.30-5.50) M/uL Hgb 9.1 L (12.0-15.0) g/dL Hct 27.5 L (36.0-48.0) % MCV 78 L (80-98) fL MCH 26 L (27-31) pg MCHC 33 (32-36) % Plt Count 354 (150-400) K/uL Neut % (Auto) 74 H (36-66) % Lymph % (Auto) 8 L (24-44) % Sutter % (Auto) 13 H (2-6) % Eos % (Auto) 5 H (2-4) % Baso % (Auto) 0 (0-1) % PT 66.3 H (9.5-12.0) sec INR 6.31 H* D (0.80-1.20) APTT 66.9 H (27.0-36.0) sec Sodium (140-148) mmol/L Potassium (3.6-5.2) mmol/L Chloride (100-108) mmol/L Carbon Dioxide (21-32) mmol/L Anion Gap (5.0-14.0) mmol/L BUN (7-18) mg/dL Creatinine (0.6-1.0) mg/dL Est Cr Clr Drug Dosing Estimated GFR (MDRD) (>60) Glucose (74-106) mg/dL Calcium (8.5-10.1) mg/dL Magnesium (1.8-2.4) mg/dL Total Bilirubin (0.2-1.0) mg/dL AST (15-37) U/L ALT (12-78) U/L Alkaline Phosphatase (46-116) U/L Troponin I (0.000-0.056) ng/mL NT-Pro-B Natriuret Pep (5-450) pg/mL Total Protein (6.4-8.2) g/dL Albumin (3.4-5.0) g/dL Globulin (2.3-3.5) g/dL Albumin/Globulin Ratio (1.2-2.2) Urine Color Other A (YELLOW) Urine Appearance Cloudy A (CLEAR) Urine pH 5.5 (5.0-8.0) Ur Specific Adrian >= 1.030 (1.008-1.030) Urine Protein Negative (NEGATIVE) mg/dL Urine Glucose (UA) Negative (NEGATIVE) mg/dL Urine Ketones Negative (NEGATIVE) mg/dL Urine Occult Blood Negative (NEGATIVE) Urine Nitrite Negative (NEGATIVE) Urine Bilirubin Negative (NEGATIVE) Urine Urobilinogen 1.0 (0.2-1.0) EU/dL Ur Leukocyte Esterase Trace H (NEGATIVE) Urine RBC 0-5 (0-5) Urine WBC 5-10 H (0-5) Ur Epithelial Cells Not seen Amorphous Sediment Not seen Urine Bacteria Few Urine Mucus Many Urine Other Influenza Type A RNA (NEGATIVE) RSV RNA (INAAT) (NEGATIVE) Influenza Type B RNA (NEGATIVE) SARS-CoV-2 RNA (TEE) (NEGATIVE) 07/26/20 07/26/20 07/26/20 Range/Units 13:05 13:05 13:05 WBC (4.5-11.0) K/uL RBC (3.30-5.50) M/uL Hgb (12.0-15.0) g/dL Hct (36.0-48.0) % MCV (80-98) fL MCH (27-31) pg MCHC (32-36) % Plt Count (150-400) K/uL Neut % (Auto) (36-66) % Lymph % (Auto) (24-44) % Sutter % (Auto) (2-6) % Eos % (Auto) (2-4) % Baso % (Auto) (0-1) % PT (9.5-12.0) sec INR (0.80-1.20) APTT (27.0-36.0) sec Sodium 133 L (140-148) mmol/L Potassium 3.6 (3.6-5.2) mmol/L Chloride 98 L (100-108) mmol/L Carbon Dioxide 29 (21-32) mmol/L Anion Gap 9.6 (5.0-14.0) mmol/L BUN 19 H (7-18) mg/dL Creatinine 0.8 (0.6-1.0) mg/dL Est Cr Clr Drug Dosing TNP Estimated GFR (MDRD) > 60 (>60) Glucose 121 H (74-106) mg/dL Calcium 8.2 L (8.5-10.1) mg/dL Magnesium 1.7 L (1.8-2.4) mg/dL Total Bilirubin 1.0 (0.2-1.0) mg/dL AST 37 (15-37) U/L ALT 27 (12-78) U/L Alkaline Phosphatase 295 H (46-116) U/L Troponin I < 0.017 (0.000-0.056) ng/mL NT-Pro-B Natriuret Pep 62613 H (5-450) pg/mL Total Protein 3.9 L (6.4-8.2) g/dL Albumin 1.5 L (3.4-5.0) g/dL Globulin 2.4 (2.3-3.5) g/dL Albumin/Globulin Ratio 0.6 L (1.2-2.2) Urine Color (YELLOW) Urine Appearance (CLEAR) Urine pH (5.0-8.0) Ur Specific Adrian (1.008-1.030) Urine Protein (NEGATIVE) mg/dL Urine Glucose (UA) (NEGATIVE) mg/dL Urine Ketones (NEGATIVE) mg/dL Urine Occult Blood (NEGATIVE) Urine Nitrite (NEGATIVE) Urine Bilirubin (NEGATIVE) Urine Urobilinogen (0.2-1.0) EU/dL Ur Leukocyte Esterase (NEGATIVE) Urine RBC (0-5) Urine WBC (0-5) Ur Epithelial Cells Amorphous Sediment Urine Bacteria Urine Mucus Urine Other Influenza Type A RNA (NEGATIVE) RSV RNA (INAAT) (NEGATIVE) Influenza Type B RNA (NEGATIVE) SARS-CoV-2 RNA (TEE) (NEGATIVE) 07/26/20 Range/Units 14:18 WBC (4.5-11.0) K/uL RBC (3.30-5.50) M/uL Hgb (12.0-15.0) g/dL Hct (36.0-48.0) % MCV (80-98) fL MCH (27-31) pg MCHC (32-36) % Plt Count (150-400) K/uL Neut % (Auto) (36-66) % Lymph % (Auto) (24-44) % Sutter % (Auto) (2-6) % Eos % (Auto) (2-4) % Baso % (Auto) (0-1) % PT (9.5-12.0) sec INR (0.80-1.20) APTT (27.0-36.0) sec Sodium (140-148) mmol/L Potassium (3.6-5.2) mmol/L Chloride (100-108) mmol/L Carbon Dioxide (21-32) mmol/L Anion Gap (5.0-14.0) mmol/L BUN (7-18) mg/dL Creatinine (0.6-1.0) mg/dL Est Cr Clr Drug Dosing Estimated GFR (MDRD) (>60) Glucose (74-106) mg/dL Calcium (8.5-10.1) mg/dL Magnesium (1.8-2.4) mg/dL Total Bilirubin (0.2-1.0) mg/dL AST (15-37) U/L ALT (12-78) U/L Alkaline Phosphatase (46-116) U/L Troponin I (0.000-0.056) ng/mL NT-Pro-B Natriuret Pep (5-450) pg/mL Total Protein (6.4-8.2) g/dL Albumin (3.4-5.0) g/dL Globulin (2.3-3.5) g/dL Albumin/Globulin Ratio (1.2-2.2) Urine Color (YELLOW) Urine Appearance (CLEAR) Urine pH (5.0-8.0) Ur Specific Adrian (1.008-1.030) Urine Protein (NEGATIVE) mg/dL Urine Glucose (UA) (NEGATIVE) mg/dL Urine Ketones (NEGATIVE) mg/dL Urine Occult Blood (NEGATIVE) Urine Nitrite (NEGATIVE) Urine Bilirubin (NEGATIVE) Urine Urobilinogen (0.2-1.0) EU/dL Ur Leukocyte Esterase (NEGATIVE) Urine RBC (0-5) Urine WBC (0-5) Ur Epithelial Cells Amorphous Sediment Urine Bacteria Urine Mucus Urine Other Influenza Type A RNA Negative (NEGATIVE) RSV RNA (INAAT) Negative (NEGATIVE) Influenza Type B RNA Negative (NEGATIVE) SARS-CoV-2 RNA (TEE) Negative (NEGATIVE) Result Diagrams: 07/26/20 13:05 07/26/20 13:05 Imaging Impressions Last 24 hrs: All radiology images below were personally reviewed Head CT-moderate volume loss but no acute intracranial findings. There is a possible remote stroke noted in the right basal ganglia CT scan of the chest, abdomen and pelvis-large bilateral effusions left slightly greater than right. There is cardiomegaly. Groundglass opacities and some scarring in the midlung areas bilaterally consistent with previous Covid infection. No acute findings in the abdomen other than hematoma tracking down the left lower back into the left thigh. No evidence for left hip fracture. #1 Interpretation EKG Date: 07/26/20 Rhythm: NSR Rate (Beats/Min): 73 Clements: Normal P-Wave: Present QRS: Normal ST-T: Normal QT: Normal Comparison: Change From Previous EKG (Previously in atrial fibrillation) EKG Interpretation Comments: Low voltage noted throughout the leads I did personally review this EKG image Sepsis Event Note - Focused Exam Vital Signs: Vital Signs Temp Pulse Resp BP Pulse Ox 07/26/20 14:46 74 17 100/52 L 88 L 07/26/20 14:16 72 21 H 91/56 L 91 L 07/26/20 13:17 70 22 H 90/47 L 91 L 07/26/20 12:49 36.3 C 78 22 H 103/57 L 94 L *Q Meaningful Use (ADM) - VTE *Q VTE Pharmacological Contraindications *Q: Active Hemorrhage - VTE Risk Assess *Q Each Risk Factor Represents 1 Point: Swollen Legs, Current, Obesity ( BMI > 25 kg/m2), Congestive heart failure (CHF) Total Score 1 Point Risk Factors: 3 Each Risk Factor Represents 2 Points: None Total Score 2 Point Risk Factors: 0 Each Risk Factor Represents 3 Points: Age 75 Years or Greater Total Score 3 Point Risk Factors: 3 Each Risk Factor Represents 5 Points: None Total Score 5 Point Risk Factors: 0 Venous Thromboembolism Risk Factor Score *Q: 6 - Problem List (1) Acute heart failure with preserved ejection fraction (HFpEF) SNOMED Code(s): 962352144, 783103964 ICD Code: I50.31 - ACUTE DIASTOLIC (CONGESTIVE) HEART FAILURE Status: Acute Current Visit: Yes (2) Hematoma of left lower extremity SNOMED Code(s): 789092521 ICD Code: S80.12XA - CONTUSION OF LEFT LOWER LEG, INITIAL ENCOUNTER Status: Acute Current Visit: Yes (3) Anemia due to blood loss, acute SNOMED Code(s): 058902053 ICD Code: D62 - ACUTE POSTHEMORRHAGIC ANEMIA Status: Acute Current Visit: Yes (4) Elevated INR SNOMED Code(s): 542938020 ICD Code: R79.1 - ABNORMAL COAGULATION PROFILE Status: Acute Current Visit: No (5) Paroxysmal atrial fibrillation SNOMED Code(s): 841061980 ICD Code: I48.0 - PAROXYSMAL ATRIAL FIBRILLATION Status: Chronic Current Visit: Yes Problem List Initiated/Reviewed/Updated: Yes Orders Last 24hrs: Active Orders 24 hr Category Date Time Status Patient Status Manage Transfer [TRANSFER] Routine ADT 07/26/20 15:46 Ordered EKG Documentation Completion [RC] ASDIRECTED Care 07/26/20 12:56 Active Phytonadione [AquaMephyton] 10 mg Med 07/26/20 15:43 Active Sodium Chloride 0.9% [Normal Saline] 50 ml IV NOW Resuscitation Status Routine Resus Stat 07/26/20 15:48 Ordered EKG 12 Lead [EK] Routine Ther 07/26/20 12:55 Ordered Medication Orders Phytonadione 10 mg/ Sodium (Chloride) 51 mls @ 100 mls/hr IV NOW ONE Stop: 07/26/20 16:13 Assessment/Plan Comment:: ASSESSMENT AND PLAN - Acute decompensated heart failure with preserved ejection fraction-last echo was more than 1 year ago but did show normal left ventricular function. She has had progressive swelling and now hypoxic respiratory failure. Recent increase in her diuretics. She has anasarca and massive pitting edema up onto her abdomen as well as her left arm. Kidney function normal. She has large bilateral pleural effusions. Blood pressure is on the low side of normal. -Hold diuretics with low blood pressure -Surgical consultation for thoracentesis once INR corrected -Supplement oxygen as indicated -Continue beta-mary -Restart diuretics once blood pressure stabilizes -Continue compression wraps of both legs -Echocardiogram when available Supratherapeutic INR-INR quite elevated at more than 6. She has been on a fluoroquinolone recently. -10 mg of IV vitamin K now -INR in the morning Paroxysmal atrial fibrillation-currently in sinus rhythm. She has been chronically anticoagulated. -Vitamin K as above, hold warfarin -Continue flecainide and beta-mary Anemia due to blood loss, acute-large hematoma extending from the left axilla down into the left buttocks. Most of her pain is currently in the left buttocks and hip area. -Type and cross 2 units of packed red blood cells -Hemoglobin in the morning -Symptomatic management of pain with heating pad and medications Maintenance issues - - DVT prophylaxis -we will utilize compression wraps at this time, unable to use pharmacological means due to active hemorrhage - GI prophylaxis -not indicated - Nutrition -low-sodium - Engle catheter -will be placed for strict intake and output monitoring CODE STATUS -DNR/DNI Admission justification -this patient will be admitted for inpatient services and is medically appropriate meeting medical necessity for inpatient admission as outlined in my documentation. I reasonably expect the patient will require inpatient services that span a period time over 2 midnights. I reasonably expect this patient to be discharged or transferred within 96 hours after admission to the [facility]. Disposition -I would anticipate [facility] back to the [facility] after the hospital stay Primary care physician -Dr. Rainer Dougherty M.D. - Mortality Measure Prognosis:: Good
[2020-07-26] MEDS ORDERED: HYDROmorphone 0.5 MG/0.5 ML Syringe IVPUSH ONE (16:03)
[2020-07-26] MEDS ORDERED: oxyCODONE 5 MG Tab PO PRN (16:07)
[2020-07-26] MEDS ORDERED: LORazepam 2 MG/ML SDV IVPUSH PRN (16:07)
[2020-07-26] MEDS ORDERED: Ondansetron 4 MG/2 ML SDV IV PRN (16:07)
[2020-07-26] MEDS ORDERED: Ondansetron 4 MG Tab.DIS PO PRN (16:07)
[2020-07-26] MEDS ORDERED: Sodium Chloride 0.9% 10 ML Syringe FLUSH PRN (16:46)
[2020-07-26] MEDS: Melatonin 3 MG Tab PO SCH (20:16)
[2020-07-26] MEDS: Flecainide 50 MG Tab PO SCH (20:16)
[2020-07-26] MEDS: Lactobacillus Rhamnosus GG (Probiotic) Cap PO SCH (20:16)
[2020-07-26] MEDS: Acetaminophen 500 MG Tab PO SCH (20:17)
[2020-07-26] MEDS: Sodium Chloride 0.9% 500 ML IV ONE ×2 (21:52→21:53)
[2020-07-27] MEDS: Levothyroxine 25 MCG Tab PO SCH (07:26)
[2020-07-27] MEDS ORDERED: oxyCODONE 5 MG Tab PO PRN (09:57)
--- NOTE | 2020-07-27 09:58 | PCM.PN ---
- General Info Date of Service: 07/27/20 Subjective Update: There were no acute events overnight though the patient has been somnolent. She is interactive this morning but is somewhat lethargic. She says that her left hip pain is much better today. She slept well last night. She says that she is feeling better but then falls asleep. She did have a left thoracentesis today with removal of about 800 mL of slightly red serosanguineous fluid. No organisms were seen on Gram stain. She is on 1 L of supplemental oxygen. Edema is better today but certainly not resolved. - Review of Systems General: Reports: Weakness Neurological: Reports: Confusion - Patient Data Vitals - Most Recent: Last Vital Signs Temp 36.4 C 07/27/20 07:14 Pulse 63 07/27/20 09:50 Resp 18 07/27/20 09:50 BP 87/49 L 07/27/20 09:50 Pulse Ox 97 07/27/20 09:50 Weight - Most Recent: 77.111 kg I&O - Last 24 Hours: Intake & Output 07/26/20 07/27/20 07/27/20 22:59 06:59 14:59 Output Total 300 Balance -300 Lab Results Last 24 Hours: Laboratory Results - last 24 hr 07/26/20 07/26/20 07/26/20 Range/Units 12:55 13:05 13:05 WBC 12.1 H (4.5-11.0) K/uL RBC 3.55 (3.30-5.50) M/uL Hgb 9.1 L (12.0-15.0) g/dL Hct 27.5 L (36.0-48.0) % MCV 78 L (80-98) fL MCH 26 L (27-31) pg MCHC 33 (32-36) % Plt Count 354 (150-400) K/uL Neut % (Auto) 74 H (36-66) % Lymph % (Auto) 8 L (24-44) % Bacon % (Auto) 13 H (2-6) % Eos % (Auto) 5 H (2-4) % Baso % (Auto) 0 (0-1) % PT 66.3 H (9.5-12.0) sec INR 6.31 H* D (0.80-1.20) APTT 66.9 H (27.0-36.0) sec Sodium (140-148) mmol/L Potassium (3.6-5.2) mmol/L Chloride (100-108) mmol/L Carbon Dioxide (21-32) mmol/L Anion Gap (5.0-14.0) mmol/L BUN (7-18) mg/dL Creatinine (0.6-1.0) mg/dL Est Cr Clr Drug Dosing Estimated GFR (MDRD) (>60) Glucose (74-106) mg/dL Calcium (8.5-10.1) mg/dL Magnesium (1.8-2.4) mg/dL Total Bilirubin (0.2-1.0) mg/dL AST (15-37) U/L ALT (12-78) U/L Alkaline Phosphatase (46-116) U/L Troponin I (0.000-0.056) ng/mL NT-Pro-B Natriuret Pep (5-450) pg/mL Total Protein (6.4-8.2) g/dL Albumin (3.4-5.0) g/dL Globulin (2.3-3.5) g/dL Albumin/Globulin Ratio (1.2-2.2) Urine Color Other A (YELLOW) Urine Appearance Cloudy A (CLEAR) Urine pH 5.5 (5.0-8.0) Ur Specific [place] >= 1.030 (1.008-1.030) Urine Protein Negative (NEGATIVE) mg/dL Urine Glucose (UA) Negative (NEGATIVE) mg/dL Urine Ketones Negative (NEGATIVE) mg/dL Urine Occult Blood Negative (NEGATIVE) Urine Nitrite Negative (NEGATIVE) Urine Bilirubin Negative (NEGATIVE) Urine Urobilinogen 1.0 (0.2-1.0) EU/dL Ur Leukocyte Esterase Trace H (NEGATIVE) Urine RBC 0-5 (0-5) Urine WBC 5-10 H (0-5) Ur Epithelial Cells Not seen Amorphous Sediment Not seen Urine Bacteria Few Urine Mucus Many Urine Other Influenza Type A RNA (NEGATIVE) RSV RNA (INAAT) (NEGATIVE) Influenza Type B RNA (NEGATIVE) SARS-CoV-2 RNA (TEE) (NEGATIVE) Blood Type Gel Antibody Screen Crossmatch 07/26/20 07/26/20 07/26/20 Range/Units 13:05 13:05 13:05 WBC (4.5-11.0) K/uL RBC (3.30-5.50) M/uL Hgb (12.0-15.0) g/dL Hct (36.0-48.0) % MCV (80-98) fL MCH (27-31) pg MCHC (32-36) % Plt Count (150-400) K/uL Neut % (Auto) (36-66) % Lymph % (Auto) (24-44) % Bacon % (Auto) (2-6) % Eos % (Auto) (2-4) % Baso % (Auto) (0-1) % PT (9.5-12.0) sec INR (0.80-1.20) APTT (27.0-36.0) sec Sodium 133 L (140-148) mmol/L Potassium 3.6 (3.6-5.2) mmol/L Chloride 98 L (100-108) mmol/L Carbon Dioxide 29 (21-32) mmol/L Anion Gap 9.6 (5.0-14.0) mmol/L BUN 19 H (7-18) mg/dL Creatinine 0.8 (0.6-1.0) mg/dL Est Cr Clr Drug Dosing TNP Estimated GFR (MDRD) > 60 (>60) Glucose 121 H (74-106) mg/dL Calcium 8.2 L (8.5-10.1) mg/dL Magnesium 1.7 L (1.8-2.4) mg/dL Total Bilirubin 1.0 (0.2-1.0) mg/dL AST 37 (15-37) U/L ALT 27 (12-78) U/L Alkaline Phosphatase 295 H (46-116) U/L Troponin I < 0.017 (0.000-0.056) ng/mL NT-Pro-B Natriuret Pep 48628 H (5-450) pg/mL Total Protein 3.9 L (6.4-8.2) g/dL Albumin 1.5 L (3.4-5.0) g/dL Globulin 2.4 (2.3-3.5) g/dL Albumin/Globulin Ratio 0.6 L (1.2-2.2) Urine Color (YELLOW) Urine Appearance (CLEAR) Urine pH (5.0-8.0) Ur Specific [place] (1.008-1.030) Urine Protein (NEGATIVE) mg/dL Urine Glucose (UA) (NEGATIVE) mg/dL Urine Ketones (NEGATIVE) mg/dL Urine Occult Blood (NEGATIVE) Urine Nitrite (NEGATIVE) Urine Bilirubin (NEGATIVE) Urine Urobilinogen (0.2-1.0) EU/dL Ur Leukocyte Esterase (NEGATIVE) Urine RBC (0-5) Urine WBC (0-5) Ur Epithelial Cells Amorphous Sediment Urine Bacteria Urine Mucus Urine Other Influenza Type A RNA (NEGATIVE) RSV RNA (INAAT) (NEGATIVE) Influenza Type B RNA (NEGATIVE) SARS-CoV-2 RNA (TEE) (NEGATIVE) Blood Type Gel Antibody Screen Crossmatch 07/26/20 07/26/20 07/27/20 Range/Units 14:18 16:07 04:30 WBC 14.8 H (4.5-11.0) K/uL RBC 3.60 (3.30-5.50) M/uL Hgb 9.2 L (12.0-15.0) g/dL Hct 27.8 L (36.0-48.0) % MCV 77 L (80-98) fL MCH 26 L (27-31) pg MCHC 33 (32-36) % Plt Count 357 (150-400) K/uL Neut % (Auto) (36-66) % Lymph % (Auto) (24-44) % Bacon % (Auto) (2-6) % Eos % (Auto) (2-4) % Baso % (Auto) (0-1) % PT (9.5-12.0) sec INR (0.80-1.20) APTT (27.0-36.0) sec Sodium (140-148) mmol/L Potassium (3.6-5.2) mmol/L Chloride (100-108) mmol/L Carbon Dioxide (21-32) mmol/L Anion Gap (5.0-14.0) mmol/L BUN (7-18) mg/dL Creatinine (0.6-1.0) mg/dL Est Cr Clr Drug Dosing Estimated GFR (MDRD) (>60) Glucose (74-106) mg/dL Calcium (8.5-10.1) mg/dL Magnesium (1.8-2.4) mg/dL Total Bilirubin (0.2-1.0) mg/dL AST (15-37) U/L ALT (12-78) U/L Alkaline Phosphatase (46-116) U/L Troponin I (0.000-0.056) ng/mL NT-Pro-B Natriuret Pep (5-450) pg/mL Total Protein (6.4-8.2) g/dL Albumin (3.4-5.0) g/dL Globulin (2.3-3.5) g/dL Albumin/Globulin Ratio (1.2-2.2) Urine Color (YELLOW) Urine Appearance (CLEAR) Urine pH (5.0-8.0) Ur Specific [place] (1.008-1.030) Urine Protein (NEGATIVE) mg/dL Urine Glucose (UA) (NEGATIVE) mg/dL Urine Ketones (NEGATIVE) mg/dL Urine Occult Blood (NEGATIVE) Urine Nitrite (NEGATIVE) Urine Bilirubin (NEGATIVE) Urine Urobilinogen (0.2-1.0) EU/dL Ur Leukocyte Esterase (NEGATIVE) Urine RBC (0-5) Urine WBC (0-5) Ur Epithelial Cells Amorphous Sediment Urine Bacteria Urine Mucus Urine Other Influenza Type A RNA Negative (NEGATIVE) RSV RNA (INAAT) Negative (NEGATIVE) Influenza Type B RNA Negative (NEGATIVE) SARS-CoV-2 RNA (TEE) Negative (NEGATIVE) Blood Type O POSITIVE Gel Antibody Screen Negative Crossmatch See Detail 07/27/20 07/27/20 Range/Units 04:30 04:30 WBC (4.5-11.0) K/uL RBC (3.30-5.50) M/uL Hgb (12.0-15.0) g/dL Hct (36.0-48.0) % MCV (80-98) fL MCH (27-31) pg MCHC (32-36) % Plt Count (150-400) K/uL Neut % (Auto) (36-66) % Lymph % (Auto) (24-44) % Bacon % (Auto) (2-6) % Eos % (Auto) (2-4) % Baso % (Auto) (0-1) % PT 16.0 H (9.5-12.0) sec INR 1.48 H D (0.80-1.20) APTT (27.0-36.0) sec Sodium 134 L (140-148) mmol/L Potassium 3.8 (3.6-5.2) mmol/L Chloride 100 (100-108) mmol/L Carbon Dioxide 29 (21-32) mmol/L Anion Gap 8.8 (5.0-14.0) mmol/L BUN 19 H (7-18) mg/dL Creatinine 0.7 (0.6-1.0) mg/dL Est Cr Clr Drug Dosing 54.43 Estimated GFR (MDRD) > 60 (>60) Glucose 86 (74-106) mg/dL Calcium 8.3 L (8.5-10.1) mg/dL Magnesium (1.8-2.4) mg/dL Total Bilirubin (0.2-1.0) mg/dL AST (15-37) U/L ALT (12-78) U/L Alkaline Phosphatase (46-116) U/L Troponin I (0.000-0.056) ng/mL NT-Pro-B Natriuret Pep (5-450) pg/mL Total Protein (6.4-8.2) g/dL Albumin (3.4-5.0) g/dL Globulin (2.3-3.5) g/dL Albumin/Globulin Ratio (1.2-2.2) Urine Color (YELLOW) Urine Appearance (CLEAR) Urine pH (5.0-8.0) Ur Specific [place] (1.008-1.030) Urine Protein (NEGATIVE) mg/dL Urine Glucose (UA) (NEGATIVE) mg/dL Urine Ketones (NEGATIVE) mg/dL Urine Occult Blood (NEGATIVE) Urine Nitrite (NEGATIVE) Urine Bilirubin (NEGATIVE) Urine Urobilinogen (0.2-1.0) EU/dL Ur Leukocyte Esterase (NEGATIVE) Urine RBC (0-5) Urine WBC (0-5) Ur Epithelial Cells Amorphous Sediment Urine Bacteria Urine Mucus Urine Other Influenza Type A RNA (NEGATIVE) RSV RNA (INAAT) (NEGATIVE) Influenza Type B RNA (NEGATIVE) SARS-CoV-2 RNA (TEE) (NEGATIVE) Blood Type Gel Antibody Screen Crossmatch Med Orders - Current: Current Medications Acetaminophen (Tylenol Extra Strength) 1,000 mg PO TID [facility] Last Admin: 07/26/20 20:17 Dose: Not Given Documented by: Albuterol (Proventil Neb Soln) 2.5 mg NEB Q4H PRN PRN Reason: Shortness Of Breath/wheezing Fenofibrate (Fenofibrate) 54 mg PO QAM [facility] Ferrous Sulfate (Ferrous Sulfate) 325 mg PO DAILY [facility] Flecainide Acetate (Tambocor) 50 mg PO BID [facility] Last Admin: 07/26/20 20:16 Dose: Not Given Documented by: Sodium Chloride (Normal Saline) 500 mls @ 500 mls/hr IV ASDIRECTED [facility] Stop: 07/27/20 11:01 Lactobacillus Rhamnosus (Culturelle) 1 cap PO BID [facility] Last Admin: 07/26/20 20:16 Dose: Not Given Documented by: Levothyroxine Sodium (Levothyroxine) 75 mcg PO DAILY@0730 [facility] Last Admin: 07/27/20 07:26 Dose: 75 mcg Documented by: Lorazepam (Ativan) 0.5 mg IVPUSH Q4H PRN PRN Reason: Nausea/Vomiting Melatonin (Melatonin) 9 mg PO BEDTIME [facility] Last Admin: 07/26/20 20:16 Dose: Not Given Documented by: Metoprolol Succinate (Toprol Xl) 50 mg PO DAILY [facility] Morphine Sulfate (Morphine) 2 mg IVPUSH Q2H PRN PRN Reason: Pain (severe 7-10) Ondansetron HCl (Zofran) 4 mg IV Q6H PRN PRN Reason: Nausea/Vomiting Ondansetron HCl (Zofran Odt) 4 mg PO Q6H PRN PRN Reason: Nausea able to take PO Oxycodone HCl (Oxycodone) 5 mg PO Q4H PRN PRN Reason: Pain Senna/Docusate Sodium (Senna Plus) 1 tab PO BID PRN PRN Reason: Constipation Sodium Chloride (Saline Flush) 10 ml FLUSH ASDIRECTED PRN PRN Reason: IV Use Last Admin: 07/26/20 16:47 Dose: 10 ml Documented by: Discontinued Medications Hydromorphone HCl (Dilaudid) 0.5 mg IVPUSH ONETIME ONE Stop: 07/26/20 16:04 Last Admin: 07/26/20 16:48 Dose: 0.5 mg Documented by: Phytonadione 10 mg/ Sodium (Chloride) 51 mls @ 100 mls/hr IV NOW ONE Stop: 07/26/20 16:13 Last Admin: 07/26/20 17:05 Dose: 100 mls/hr Documented by: Sodium Chloride (Normal Saline) 500 mls @ 500 mls/hr IV .BOLUS ONE Stop: 07/26/20 21:35 Last Admin: 07/26/20 21:53 Dose: Not Given Documented by: Oxycodone HCl (Oxycodone) 5 - 10 mg PO Q4H PRN PRN Reason: Pain - Exam Quality Assessment: Supplemental Oxygen General: Alert, Cooperative, No Acute Distress, Lethargic HEENT: Pupils Equal Lungs: Normal Respiratory Effort, Decreased Breath Sounds (right lung base), Crackles (left lung base) Cardiovascular: Regular Rate, Regular Rhythm GI/Abdominal Exam: Soft, No Distention Extremities: Pedal Edema. No: Increased Warmth Skin: Warm, Dry, Ecchymosis (left axialla, lateral chest and left flank ) Psy/Mental Status: Alert. No: Agitated Sepsis Event Note - Evaluation Sepsis Screening Result: No Definite Risk - Focused Exam Vital Signs: Vital Signs Temp Pulse Resp BP Pulse Ox 07/27/20 09:50 63 18 87/49 L 97 07/27/20 07:41 92/54 L 07/27/20 07:14 36.4 C 85 20 84/43 L 92 L 07/27/20 03:07 35.9 C L 76 18 91/67 97 07/27/20 01:00 102/51 L - Problem List & Annotations (1) Acute heart failure with preserved ejection fraction (HFpEF) SNOMED Code(s): 212536942, 642334434 Code(s): I50.31 - ACUTE DIASTOLIC (CONGESTIVE) HEART FAILURE Status: Acute Current Visit: Yes (2) Hematoma of left lower extremity SNOMED Code(s): 428224221 Code(s): S80.12XA - CONTUSION OF LEFT LOWER LEG, INITIAL ENCOUNTER Status: Acute Current Visit: Yes (3) Anemia due to blood loss, acute SNOMED Code(s): 560928542 Code(s): D62 - ACUTE POSTHEMORRHAGIC ANEMIA Status: Acute Current Visit: Yes (4) Elevated INR SNOMED Code(s): 167180267 Code(s): R79.1 - ABNORMAL COAGULATION PROFILE Status: Acute Current Visit: No (5) Paroxysmal atrial fibrillation SNOMED Code(s): 640139666 Code(s): I48.0 - PAROXYSMAL ATRIAL FIBRILLATION Status: Chronic Current Visit: Yes - Problem List Review Problem List Initiated/Reviewed/Updated: Yes - My Orders Last 24 Hours: My Active Orders 07/26/20 15:48 Resuscitation Status Routine 07/26/20 16:07 PATIENT RETYPE [BBK] Routine TYPE AND SCREEN [BBK] Routine Albuterol [Proventil Neb Soln] 2.5 mg NEB Q4H PRN Docusate Sodium/Sennosides [Senna Plus] 1 tab PO BID PRN LORazepam [Ativan] 0.5 mg IVPUSH Q4H PRN Morphine 2 mg IVPUSH Q2H PRN Ondansetron [Zofran ODT] 4 mg PO Q6H PRN Ondansetron [Zofran] 4 mg IV Q6H PRN 07/26/20 16:07 Patient Status [ADT] Routine Cooling Warming Measures [RC] ASDIRECTED Height and Weight [RC] DAILY Intake and Output [RC] QSHIFT Notify Provider Vital Signs [RC] ASDIRECTED Oxygen Therapy [RC] PRN RT Aerosol Therapy [RC] ASDIRECTED Up With Assistance [RC] ASDIRECTED Vital Signs [RC] Q4H RED BLOOD CELLS LP [BBK] Routine Heat Therapy [OM.PC] Routine VTE Pharmacological Contraindications [AST] Routine 07/26/20 16:12 Urinary Catheter Assessment [RC] ASDIRECTED 07/26/20 16:46 Sodium Chloride 0.9% [Saline Flush] 10 ml FLUSH ASDIRECTED PRN 07/26/20 Dinner 2 Gram Sodium Diet [DIET] 07/26/20 21:00 Acetaminophen [Tylenol Extra Strength] 1,000 mg PO TID Flecainide [Tambocor] 50 mg PO BID Lactobacillus Rhamnosus GG [Culturelle] 1 cap PO BID Melatonin 9 mg PO BEDTIME 07/27/20 07:30 Levothyroxine 75 mcg PO DAILY@0730 07/27/20 08:13 US Guidance Thoracentesis NC [US] Routine 07/27/20 09:00 Fenofibrate 54 mg PO QAM Ferrous Sulfate 325 mg PO DAILY Metoprolol Succinate [Toprol XL] 50 mg PO DAILY 07/27/20 09:57 oxyCODONE 5 mg PO Q4H PRN 07/27/20 10:00 Sodium Chloride 0.9% [Normal Saline] 500 ml IV ASDIRECTED 07/28/20 05:00 BASIC METABOLIC PANEL,BMP [CHEM] Timed CBC W/O DIFF,HEMOGRAM [HEME] Timed (1) INR,PT,PROTHROMBIN TIME [COAG] Timed 07/29/20 07:00 Echo Comp wo Cont [US] Routine - Plan Plan:: ASSESSMENT AND PLAN - Acute decompensated heart failure with preserved ejection fraction-last echo was more than 1 year ago but did show normal left ventricular function. Edema is better today but blood pressure on the low side and urine specific gravity quite high suggesting intravascular volume depletion. Albumin also quite low. She is status post left thoracentesis today and the plan is for a right thoracentesis tomorrow. -Hold diuretics with low blood pressure -Surgical consultation for thoracentesis -Supplement oxygen as indicated -Hold beta-mary with low blood pressure -Restart diuretics once blood pressure stabilizes -Continue compression wraps of both legs -Echocardiogram when available Supratherapeutic INR-INR normal after reversal. -Hold warfarin for the time being -INR in the morning Paroxysmal atrial fibrillation-currently in sinus rhythm. She has been chronically anticoagulated. -hold warfarin -Continue flecainide and beta-mary Anemia due to blood loss, acute-large hematoma extending from the left axilla down into the left buttocks. Buttocks pain is better. Hemoglobin stable. -Type and cross 2 units of packed red blood cells -Hemoglobin in the morning -Symptomatic management of pain with heating pad and medications Maintenance issues - - DVT prophylaxis -we will utilize compression wraps at this time, unable to use pharmacological means due to active hemorrhage - GI prophylaxis -not indicated - Nutrition -low-sodium - [place] catheter -will be placed for strict intake and output monitoring Disposition -I would anticipate discharge back to the long-term after the hospital stay Primary care physician -Dr. Rainer Dougherty M.D.
[2020-07-27] MEDS ORDERED: Sodium Chloride 0.9% 500 ML IV SCH ×2 (10:00→17:00)
[2020-07-27] MEDS: Metoprolol Succinate 50 MG Tab.ER PO SCH (10:58)
[2020-07-27] MEDS: Lactobacillus Rhamnosus GG (Probiotic) Cap PO SCH ×3 (10:58→20:26)
[2020-07-27] MEDS: Acetaminophen 500 MG Tab PO SCH (10:59)
[2020-07-27] MEDS: Flecainide 50 MG Tab PO SCH ×3 (10:59→20:26)
[2020-07-27] MEDS: Fenofibrate 54 MG Tab PO SCH (11:00)
[2020-07-27] MEDS: Ferrous Sulfate 325 MG Tab PO SCH (11:00)
[2020-07-27] MEDS: Acetaminophen Soln 650 MG/20.3 ML UD Cup PO SCH ×3 (16:41→20:26)
[2020-07-27] MEDS: Melatonin 3 MG Tab PO SCH ×2 (19:34→20:26)
[2020-07-27] MEDS: Albuterol 0.083% 2.5 MG/3 ML Neb Soln NEB PRN (22:32)
[2020-07-28] MEDS: Lactobacillus Rhamnosus GG (Probiotic) Cap PO SCH ×3 (08:00→20:33)
[2020-07-28] MEDS: Ferrous Sulfate 325 MG Tab PO SCH (08:00)
[2020-07-28] MEDS: Flecainide 50 MG Tab PO SCH ×3 (08:00→20:33)
[2020-07-28] MEDS: Fenofibrate 54 MG Tab PO SCH (08:00)
[2020-07-28] MEDS: Levothyroxine 25 MCG Tab PO SCH (08:01)
[2020-07-28] MEDS: Acetaminophen Soln 650 MG/20.3 ML UD Cup PO SCH ×4 (08:01→20:33)
--- NOTE | 2020-07-28 10:23 | PCM.PN ---
- General Info Date of Service: 07/28/20 Subjective Update: No acute events overnight. She was somewhat lethargic overnight and this morning but seems to be perking up. She does complain of some nausea as well as a cough after her right thoracentesis which removed about 500 to 600 mL of serosanguineous fluid. She has not had any fevers. Blood pressures have slowly been improving with 2 small fluid challenges and albumin infusion. Kidney function stable. White blood cell count a little better today. No strong evidence to support infection. Edema is better. Still very weak. Functional Status: Reports: Pain Controlled - Review of Systems General: Reports: Weakness. Denies: Fever Neurological: Reports: Confusion - Patient Data Vitals - Most Recent: Last Vital Signs Temp 36.2 C 07/28/20 07:00 Pulse 78 07/28/20 07:00 Resp 18 07/28/20 07:00 BP 91/47 L 07/28/20 07:00 Pulse Ox 99 07/28/20 07:00 Weight - Most Recent: 77.111 kg I&O - Last 24 Hours: Intake & Output 07/27/20 07/28/20 07/28/20 22:59 06:59 14:59 Intake Total 480 340 Output Total 55 Balance 425 340 Lab Results Last 24 Hours: Laboratory Results - last 24 hr 07/27/20 07/27/20 07/28/20 Range/Units 09:19 09:19 04:30 WBC 11.2 H (4.5-11.0) K/uL RBC 2.96 L (3.30-5.50) M/uL Hgb 7.7 L (12.0-15.0) g/dL Hct 23.1 L (36.0-48.0) % MCV 78 L (80-98) fL MCH 26 L (27-31) pg MCHC 33 (32-36) % Plt Count 349 (150-400) K/uL PT (9.5-12.0) sec INR (0.80-1.20) Sodium (140-148) mmol/L Potassium (3.6-5.2) mmol/L Chloride (100-108) mmol/L Carbon Dioxide (21-32) mmol/L Anion Gap (5.0-14.0) mmol/L BUN (7-18) mg/dL Creatinine (0.6-1.0) mg/dL Est Cr Clr Drug Dosing mL/min Estimated GFR (MDRD) (>60) Glucose (74-106) mg/dL Calcium (8.5-10.1) mg/dL Fluid Type Thoracentesis fluid Thoracentesis fluid Fluid Glucose 91 mg/dL Fluid Total Protein < 2 g/dL Fluid LDH 80 IU/L Fluid Amylase 5 U/L 07/28/20 07/28/20 Range/Units 04:30 04:30 WBC (4.5-11.0) K/uL RBC (3.30-5.50) M/uL Hgb (12.0-15.0) g/dL Hct (36.0-48.0) % MCV (80-98) fL MCH (27-31) pg MCHC (32-36) % Plt Count (150-400) K/uL PT 12.7 H (9.5-12.0) sec INR 1.17 (0.80-1.20) Sodium 136 L (140-148) mmol/L Potassium 3.6 (3.6-5.2) mmol/L Chloride 101 (100-108) mmol/L Carbon Dioxide 28 (21-32) mmol/L Anion Gap 10.6 (5.0-14.0) mmol/L BUN 22 H (7-18) mg/dL Creatinine 0.8 (0.6-1.0) mg/dL Est Cr Clr Drug Dosing 47.62 mL/min Estimated GFR (MDRD) > 60 (>60) Glucose 100 (74-106) mg/dL Calcium 8.3 L (8.5-10.1) mg/dL Fluid Type Fluid Glucose mg/dL Fluid Total Protein g/dL Fluid LDH IU/L Fluid Amylase U/L Chase Results Last 24 Hours: Microbiology 07/27/20 09:06 Gram Stain - Final Thoracentesis Fluid Body Fluid Culture - Preliminary NO GROWTH AFTER 1 DAY 07/27/20 09:17 AMPARO Preparation - Final Other Med Orders - Current: Current Medications Acetaminophen (Tylenol) 1,000 mg PO TID [facility] Last Admin: 07/28/20 08:01 Dose: 1,000 mg Documented by: Albuterol (Proventil Neb Soln) 2.5 mg NEB Q4H PRN PRN Reason: Shortness Of Breath/wheezing Last Admin: 07/27/20 22:32 Dose: 2.5 mg Documented by: Fenofibrate (Fenofibrate) 54 mg PO QAM [facility] Last Admin: 07/28/20 08:00 Dose: 54 mg Documented by: Ferrous Sulfate (Ferrous Sulfate) 325 mg PO DAILY [facility] Last Admin: 07/28/20 08:00 Dose: 325 mg Documented by: Flecainide Acetate (Tambocor) 50 mg PO BID [facility] Last Admin: 07/28/20 08:00 Dose: 50 mg Documented by: Albumin Human (Albumin 25%) 25 gm in 100 mls @ 25 mls/hr IV Q6H [facility] Stop: 07/29/20 08:29 Lactobacillus Rhamnosus (Culturelle) 1 cap PO BID [facility] Last Admin: 07/28/20 08:00 Dose: 1 cap Documented by: Levothyroxine Sodium (Levothyroxine) 75 mcg PO DAILY@0730 [facility] Last Admin: 07/28/20 08:01 Dose: 75 mcg Documented by: Lorazepam (Ativan) 0.5 mg IVPUSH Q4H PRN PRN Reason: Nausea/Vomiting Melatonin (Melatonin) 9 mg PO BEDTIME [facility] Last Admin: 07/27/20 20:26 Dose: Not Given Documented by: Metoprolol Succinate (Toprol Xl) 50 mg PO DAILY [facility] Last Admin: 07/27/20 10:58 Dose: Not Given Documented by: Morphine Sulfate (Morphine) 2 mg IVPUSH Q2H PRN PRN Reason: Pain (severe 7-10) Ondansetron HCl (Zofran) 4 mg IV Q6H PRN PRN Reason: Nausea/Vomiting Ondansetron HCl (Zofran Odt) 4 mg PO Q6H PRN PRN Reason: Nausea able to take PO Oxycodone HCl (Oxycodone) 5 mg PO Q4H PRN PRN Reason: Pain Senna/Docusate Sodium (Senna Plus) 1 tab PO BID PRN PRN Reason: Constipation Sodium Chloride (Saline Flush) 10 ml FLUSH ASDIRECTED PRN PRN Reason: IV Use Last Admin: 07/26/20 16:47 Dose: 10 ml Documented by: Discontinued Medications Acetaminophen (Tylenol Extra Strength) 1,000 mg PO TID [facility] Last Admin: 07/27/20 10:59 Dose: 1,000 mg Documented by: Hydromorphone HCl (Dilaudid) 0.5 mg IVPUSH ONETIME ONE Stop: 07/26/20 16:04 Last Admin: 07/26/20 16:48 Dose: 0.5 mg Documented by: Phytonadione 10 mg/ Sodium (Chloride) 51 mls @ 100 mls/hr IV NOW ONE Stop: 07/26/20 16:13 Last Admin: 07/26/20 17:05 Dose: 100 mls/hr Documented by: Sodium Chloride (Normal Saline) 500 mls @ 500 mls/hr IV .BOLUS ONE Stop: 07/26/20 21:35 Last Admin: 07/26/20 21:53 Dose: Not Given Documented by: Sodium Chloride (Normal Saline) 500 mls @ 500 mls/hr IV ASDIRECTED [facility] Stop: 07/27/20 11:01 Albumin Human (Albumin 25%) 25 gm in 100 mls @ 25 mls/hr IV ONETIME ONE Stop: 07/27/20 17:59 Last Admin: 07/27/20 14:38 Dose: 25 mls/hr Documented by: Sodium Chloride (Normal Saline) 500 mls @ 500 mls/hr IV ASDIRECTED [facility] Stop: 07/27/20 17:59 Last Admin: 07/27/20 17:45 Dose: 500 mls/hr Documented by: Albumin Human (Albumin 25%) 25 gm in 100 mls @ 25 mls/hr IV ONETIME ONE Stop: 07/28/20 07:35 Last Admin: 07/28/20 03:55 Dose: 25 mls/hr Documented by: Oxycodone HCl (Oxycodone) 5 - 10 mg PO Q4H PRN PRN Reason: Pain - Exam Quality Assessment: Supplemental Oxygen General: Alert, Cooperative, No Acute Distress, Lethargic. No: Oriented Lungs: Normal Respiratory Effort, Crackles (both sides, lower and mid lung ) Cardiovascular: Regular Rate, Regular Rhythm GI/Abdominal Exam: Normal Bowel Sounds, Soft, Non-Tender, No Distention Extremities: Pedal Edema. No: Increased Warmth Skin: Warm, Dry, Ecchymosis (left axilla, lateral chest and flank ) Psy/Mental Status: Alert. No: Agitated Sepsis Event Note - Evaluation Sepsis Screening Result: No Definite Risk - Focused Exam Vital Signs: Vital Signs Temp Pulse Resp BP BP Pulse Ox 07/28/20 07:00 36.2 C 78 18 91/47 L 99 07/28/20 02:35 35.8 C L 85 18 85/39 L 93 L 07/27/20 22:28 35.7 C L 85 18 84/40 L 92 L - Problem List & Annotations (1) Acute heart failure with preserved ejection fraction (HFpEF) SNOMED Code(s): 141151597, 623727369 Code(s): I50.31 - ACUTE DIASTOLIC (CONGESTIVE) HEART FAILURE Status: Acute Current Visit: Yes (2) Hematoma of left lower extremity SNOMED Code(s): 810924277 Code(s): S80.12XA - CONTUSION OF LEFT LOWER LEG, INITIAL ENCOUNTER Status: Acute Current Visit: Yes Qualifiers: Encounter type: initial encounter Qualified Code(s): S80.12XA - Contusion of left lower leg, initial encounter Annotation/Comment:: Left buttocks (3) Anemia due to blood loss, acute SNOMED Code(s): 060798660 Code(s): D62 - ACUTE POSTHEMORRHAGIC ANEMIA Status: Acute Current Visit: Yes (4) Elevated INR SNOMED Code(s): 795683997 Code(s): R79.1 - ABNORMAL COAGULATION PROFILE Status: Acute Current Visit: No (5) Paroxysmal atrial fibrillation SNOMED Code(s): 961366664 Code(s): I48.0 - PAROXYSMAL ATRIAL FIBRILLATION Status: Chronic Current Visit: Yes - Problem List Review Problem List Initiated/Reviewed/Updated: Yes - My Orders Last 24 Hours: My Active Orders 07/27/20 09:57 oxyCODONE 5 mg PO Q4H PRN 07/27/20 16:00 Acetaminophen [Tylenol] 1,000 mg PO TID 07/28/20 10:30 Albumin Human [Albumin 25%] 25 gm in 100 ml IV Q6H Potassium Chloride 20 MEQ,Lidocaine 1% 2 ML IN 100ML NS @ 50 MLS/HR Potassium Chloride 20 meq Lidocaine 1% [Xylocaine 1%] 2 ml Sodium Chloride 0.9% [Normal Saline] 100 ml IV Q2H 07/29/20 05:00 BASIC METABOLIC PANEL,BMP [CHEM] Timed CBC W/O DIFF,HEMOGRAM [HEME] Timed (1) 07/29/20 07:00 Echo Comp wo Cont [US] Routine - Plan Plan:: ASSESSMENT AND PLAN - Acute decompensated heart failure with preserved ejection fraction, suspected- last echo was more than 1 year ago but did show normal left ventricular function. Edema is getting better. Now status post bilateral thoracentesis. Blood pressure still on the low side of normal. Differential would include severe hypoalbuminemia. No evidence for nephrotic syndrome. Urine output still low. -Albumin every 6 hours x24 hours -Hold diuretics with low blood pressure -Surgical consultation for thoracentesis appreciated -Supplement oxygen as indicated -Hold beta-mary with low blood pressure -Consider diuretics once blood pressure stabilizes -Continue compression wraps of both legs -Echocardiogram tomorrow Supratherapeutic INR-INR normal after reversal. -Hold warfarin for the time being Paroxysmal atrial fibrillation-currently in sinus rhythm. She has been chronically anticoagulated. -hold warfarin -Continue flecainide -Beta-mary on hold with hypotension Anemia due to blood loss, acute-large hematoma extending from the left axilla down into the left buttocks. Buttocks pain seems to have resolved. Hemoglobin slightly lower today but this could be related to dilution from her fluid challenge yesterday. -Type and cross 2 units of packed red blood cells -Hemoglobin in the morning -Symptomatic management of pain with heating pad and medications Maintenance issues - - DVT prophylaxis -we will utilize compression wraps at this time, unable to use pharmacological means due to recent hemorrhage - GI prophylaxis -not indicated - Nutrition -low-sodium - Engle catheter -will remain in place for strict intake and output monitoring Disposition -I would anticipate discharge back to the assisted after the hospital stay Primary care physician -Dr. Rainer Dougherty M.D.
[2020-07-28] MEDS: Potassium Chloride 20 MEQ, Lidocaine 1% 2 ML in Sodium Chloride 0.9% 100 ML IV SCH ×2 (11:16→13:52)
[2020-07-28] MEDS ORDERED: Sodium Chloride 0.9% 500 ML IV ONE (17:52)
[2020-07-28] MEDS: Albuterol 0.083% 2.5 MG/3 ML Neb Soln NEB PRN (19:24)
[2020-07-28] MEDS: Melatonin 3 MG Tab PO SCH ×2 (19:28→20:33)
--- NOTE | 2020-07-29 09:12 | CR ---
CHEST: Portable 07/27/2020 at 9:39 AM CLINICAL HISTORY:Follow-up thoracentesis COMPARISON:CT chest 07/26/2020 FINDINGS: Heart size and pulmonary vascular normal. There are moderate perihilar infiltrates bilaterally which were seen on the CT. There is some consolidation in both infrahilar regions. Patient is bilateral pleural effusions left greater than right. Left effusion appears diminished when compared to prior study. There is no evidence of pneumothorax. There are atherosclerotic changes in the aorta. IMPRESSION: Small bilateral pleural effusions Status post left thoracentesis. There is no pneumothorax Bilateral diffuse pulmonary infiltrates with some lower lobe consolidation bilaterally
--- NOTE | 2020-07-29 09:31 | CR ---
CHEST: 2 view portable 07/28/2020 at 6:12 AM CLINICAL HISTORY:Follow-up thoracentesis COMPARISON:07/27/2020 FINDINGS: There are bilateral pleural effusions similar to prior study. There is increasing patchy density in the left upper lobe. There is diffuse right lung infiltrate. Lung markings are exaggerated due to the less than optimal inspiration. There is no evidence of pneumothorax. IMPRESSION: Limited study due to poor inspiratory level. Persistent bilateral pleural effusions similar to prior postthoracentesis image Bilateral infiltrates, increasing on the left CHEST: Portable 07/28/2020 CLINICAL HISTORY:Postthoracentesis COMPARISON:Earlier same day FINDINGS: There is an increase in pulmonary vascularity when compared to prior studies. Bilateral pleural effusions persist. Diffuse bilateral pulmonary infiltrates showing increased since prior day. There is a large hiatal hernia. IMPRESSION: Increasing bilateral infiltrates. This may be increasing pneumonia or superimposed CHF CHEST: Portable 07/29/2020 at 5:14 AM CLINICAL HISTORY:Follow-up thoracentesis COMPARISON:07/28/2020 FINDINGS: There is increasing vascular congestion and diffuse increased pulmonary infiltrates suggesting superimposed CHF with pulmonary edema over persistent bilateral pneumonias Bilateral pleural effusions persist. IMPRESSION: Increasing lung markings and vascularity diffusely and bilaterally suggest CHF and some pulmonary edema superimposed over bilateral pneumonic infiltrates.. Study is technically less than optimal due to poor inspiratory level.
[2020-07-29] MEDS: Lactobacillus Rhamnosus GG (Probiotic) Cap PO SCH ×2 (10:22→21:29)
[2020-07-29] MEDS: Levothyroxine 25 MCG Tab PO SCH (10:22)
[2020-07-29] MEDS: Fenofibrate 54 MG Tab PO SCH (10:22)
[2020-07-29] MEDS: Acetaminophen Soln 650 MG/20.3 ML UD Cup PO SCH ×4 (10:23→21:30)
[2020-07-29] MEDS: Ferrous Sulfate 325 MG Tab PO SCH (10:23)
[2020-07-29] MEDS: Flecainide 50 MG Tab PO SCH ×2 (10:28→21:29)
[2020-07-29] MEDS: Albuterol 0.083% 2.5 MG/3 ML Neb Soln NEB PRN (13:42)
[2020-07-29] MEDS ORDERED: Furosemide 40 MG/4 ML VIAL IVPUSH ONE (14:00)
--- NOTE | 2020-07-29 17:33 | PROC ---
DATE OF PROCEDURE: 07/28/2020 SURGEON: Romario Enciso MD PREOPERATIVE DIAGNOSIS: Right pleural effusion. POSTOPERATIVE DIAGNOSIS: Right pleural effusion. OPERATIVE PROCEDURE: Ultrasound-guided right thoracentesis. ANESTHESIA: Local. INDICATIONS FOR PROCEDURE: The patient presented with bilateral pleural effusions. She underwent a left thoracentesis yesterday and is undergoing right one today. The potential risks including bleeding, infection, pneumothorax, need for chest tube and such were reviewed, and the patient wishes to proceed. DETAILS OF PROCEDURE: Sitting in the hospital bed, the patient's right posterior lateral chest wall was evaluated by ultrasound and location marked for thoracentesis. That area was then prepped and draped, anesthetized with 1% lidocaine. 500 mL of a clear serous fluid was removed, and as much fluid as possible was removed. Chest x-ray is pending. Catheter was removed and dressing applied. There were no evident complications. Romario Enciso MD /[id number]
--- NOTE | 2020-07-29 17:33 | PROC ---
DATE OF PROCEDURE: 07/27/2020 SURGEON: Romario Enciso MD PREOPERATIVE DIAGNOSIS: Bilateral pleural effusions. POSTOPERATIVE DIAGNOSIS: Bilateral pleural effusions. OPERATIVE PROCEDURE: Ultrasound-guided left thoracentesis. ANESTHESIA: Local. INDICATIONS FOR PROCEDURE: This is an 80-year-old female, presenting with a large amount of retained fluid throughout her body, i.e. an anasarca type presentation with bilateral relatively large pleural effusions. She is to undergo bilateral thoracentesis. We will do the left side today and the right side tomorrow in the event there happens to be a complication with the initial thoracentesis. Potential risks including bleeding, infection, pneumothorax, need for chest tubes were reviewed, and the patient wishes to proceed. DETAILS OF PROCEDURE: The patient was placed in sitting position in the hospital bed. The left posterior lateral chest wall was then evaluated with ultrasound and the site located for thoracentesis. That area was then prepped and draped, anesthetized with 1% lidocaine and thoracentesis catheter placed. 600 mL of serous slightly off color fluid was evacuated. This was sent for full workup. Subsequent chest x-ray showed near complete evacuation of the fluid on the left side remaining right pleural fluid collection which will likely be drained tomorrow. Dressing was applied. The patient tolerated the procedure well. Romario Enciso MD /[id number]
[2020-07-29] MEDS: Melatonin 3 MG Tab PO SCH (21:29)
[2020-07-29] MEDS: Morphine 2 MG/ML SYRINGE IVPUSH PRN (22:26)
[2020-07-30] MEDS: Morphine 2 MG/ML SYRINGE IVPUSH PRN (05:31)
[2020-07-30] MEDS: Levothyroxine 25 MCG Tab PO SCH (08:03)
[2020-07-30] MEDS: Flecainide 50 MG Tab PO SCH ×2 (09:27→21:33)
[2020-07-30] MEDS: Lactobacillus Rhamnosus GG (Probiotic) Cap PO SCH (09:29)
[2020-07-30] MEDS: Ferrous Sulfate 325 MG Tab PO SCH (09:29)
[2020-07-30] MEDS: Fenofibrate 54 MG Tab PO SCH (09:29)
[2020-07-30] MEDS: Acetaminophen Soln 650 MG/20.3 ML UD Cup PO SCH ×3 (09:31→21:33)
[2020-07-30] MEDS: Metoprolol Succinate 50 MG Tab.ER PO SCH (09:57)
--- NOTE | 2020-07-30 12:14 | PCM.PN ---
- General Info Date of Service: 07/30/20 Subjective Update: Ms. Yanez has not changed significantly over the last 24 hours. Family has met with hospice and has decided to proceed with [facility] back to [facility] in hospice admission after discharge. They feel that this would be very consistent with their mother's previously expressed wishes. Patient is unable to provide meaningful history concerning symptoms or review of systems because of underlying dementia. - Patient Data Vitals - Most Recent: Last Vital Signs Temp 96.1 F L 07/30/20 10:27 Pulse 92 07/30/20 10:27 Resp 18 07/30/20 10:27 BP 111/58 L 07/30/20 10:27 Pulse Ox 93 L 07/30/20 10:27 Weight - Most Recent: 191 lb 9.307 oz I&O - Last 24 Hours: Intake & Output 07/29/20 07/30/20 07/30/20 22:59 06:59 14:59 Intake Total 350 30 Output Total 175 250 Balance 175 -250 30 Lab Results Last 24 Hours: Laboratory Results - last 24 hr 07/26/20 07/29/20 07/30/20 Range/Units 16:07 19:50 05:23 WBC 11.1 H (4.5-11.0) K/uL RBC 3.75 (3.30-5.50) M/uL Hgb 10.7 L D 10.4 L (12.0-15.0) g/dL Hct 30.9 L (36.0-48.0) % MCV 82 (80-98) fL MCH 28 (27-31) pg MCHC 34 (32-36) % Plt Count 324 (150-400) K/uL Neut % (Auto) 74 H (36-66) % Lymph % (Auto) 12 L (24-44) % [place] % (Auto) 10 H (2-6) % Eos % (Auto) 4 (2-4) % Baso % (Auto) 0 (0-1) % PT (9.5-12.0) sec INR (0.80-1.20) Sodium (140-148) mmol/L Potassium (3.6-5.2) mmol/L Chloride (100-108) mmol/L Carbon Dioxide (21-32) mmol/L Anion Gap (5.0-14.0) mmol/L BUN (7-18) mg/dL Creatinine (0.6-1.0) mg/dL Est Cr Clr Drug Dosing mL/min Estimated GFR (MDRD) (>60) Glucose (74-106) mg/dL Calcium (8.5-10.1) mg/dL Blood Type O POSITIVE Gel Antibody Screen Negative Crossmatch See Detail 07/30/20 07/30/20 Range/Units 05:23 05:23 WBC (4.5-11.0) K/uL RBC (3.30-5.50) M/uL Hgb (12.0-15.0) g/dL Hct (36.0-48.0) % MCV (80-98) fL MCH (27-31) pg MCHC (32-36) % Plt Count (150-400) K/uL Neut % (Auto) (36-66) % Lymph % (Auto) (24-44) % [place] % (Auto) (2-6) % Eos % (Auto) (2-4) % Baso % (Auto) (0-1) % PT 13.4 H (9.5-12.0) sec INR 1.23 H (0.80-1.20) Sodium 140 (140-148) mmol/L Potassium 4.2 (3.6-5.2) mmol/L Chloride 103 (100-108) mmol/L Carbon Dioxide 30 (21-32) mmol/L Anion Gap 6.9 (5.0-14.0) mmol/L BUN 24 H (7-18) mg/dL Creatinine 0.8 (0.6-1.0) mg/dL Est Cr Clr Drug Dosing 47.97 mL/min Estimated GFR (MDRD) > 60 (>60) Glucose 87 (74-106) mg/dL Calcium 9.4 (8.5-10.1) mg/dL Blood Type Gel Antibody Screen Crossmatch Chase Results Last 24 Hours: Microbiology 07/27/20 09:06 Gram Stain - Final Thoracentesis Fluid Body Fluid Culture - Final NO GROWTH AFTER 3 DAYS Med Orders - Current: Current Medications Acetaminophen (Tylenol) 1,000 mg PO TID [facility] Last Admin: 07/30/20 09:31 Dose: 1,000 mg Documented by: Albuterol (Proventil Neb Soln) 2.5 mg NEB Q4H PRN PRN Reason: Shortness Of Breath/wheezing Last Admin: 07/29/20 13:42 Dose: 2.5 mg Documented by: Ferrous Sulfate (Ferrous Sulfate) 325 mg PO DAILY [facility] Last Admin: 07/30/20 09:29 Dose: Not Given Documented by: Flecainide Acetate (Tambocor) 50 mg PO BID [facility] Last Admin: 07/30/20 09:27 Dose: 50 mg Documented by: Levothyroxine Sodium (Levothyroxine) 75 mcg PO DAILY@0730 [facility] Last Admin: 07/30/20 08:03 Dose: 75 mcg Documented by: Lorazepam (Ativan) 0.5 mg IVPUSH Q4H PRN PRN Reason: Nausea/Vomiting Melatonin (Melatonin) 9 mg PO BEDTIME [facility] Last Admin: 07/29/20 21:29 Dose: 9 mg Documented by: Metoprolol Succinate (Toprol Xl) 50 mg PO DAILY [facility] Last Admin: 07/30/20 09:57 Dose: Not Given Documented by: Morphine Sulfate (Morphine) 2 mg IVPUSH Q2H PRN PRN Reason: Pain (severe 7-10) Last Admin: 07/30/20 05:31 Dose: 2 mg Documented by: Ondansetron HCl (Zofran) 4 mg IV Q6H PRN PRN Reason: Nausea/Vomiting Ondansetron HCl (Zofran Odt) 4 mg PO Q6H PRN PRN Reason: Nausea able to take PO Oxycodone HCl (Oxycodone) 5 mg PO Q4H PRN PRN Reason: Pain Last Admin: 07/28/20 19:27 Dose: 5 mg Documented by: Senna/Docusate Sodium (Senna Plus) 1 tab PO BID PRN PRN Reason: Constipation Sodium Chloride (Saline Flush) 10 ml FLUSH ASDIRECTED PRN PRN Reason: IV Use Last Admin: 07/26/20 16:47 Dose: 10 ml Documented by: Discontinued Medications Acetaminophen (Tylenol Extra Strength) 1,000 mg PO TID [facility] Last Admin: 07/27/20 10:59 Dose: 1,000 mg Documented by: Fenofibrate (Fenofibrate) 54 mg PO QAM [facility] Last Admin: 07/30/20 09:29 Dose: Not Given Documented by: Furosemide (Lasix) 40 mg IVPUSH NOW ONE Stop: 07/29/20 14:01 Last Admin: 07/29/20 14:15 Dose: 40 mg Documented by: Hydromorphone HCl (Dilaudid) 0.5 mg IVPUSH ONETIME ONE Stop: 07/26/20 16:04 Last Admin: 07/26/20 16:48 Dose: 0.5 mg Documented by: Phytonadione 10 mg/ Sodium (Chloride) 51 mls @ 100 mls/hr IV NOW ONE Stop: 07/26/20 16:13 Last Admin: 07/26/20 17:05 Dose: 100 mls/hr Documented by: Sodium Chloride (Normal Saline) 500 mls @ 500 mls/hr IV .BOLUS ONE Stop: 07/26/20 21:35 Last Admin: 07/26/20 21:53 Dose: Not Given Documented by: Sodium Chloride (Normal Saline) 500 mls @ 500 mls/hr IV ASDIRECTED [facility] Stop: 07/27/20 11:01 Albumin Human (Albumin 25%) 25 gm in 100 mls @ 25 mls/hr IV ONETIME ONE Stop: 07/27/20 17:59 Last Admin: 07/27/20 14:38 Dose: 25 mls/hr Documented by: Sodium Chloride (Normal Saline) 500 mls @ 500 mls/hr IV ASDIRECTED [facility] Stop: 07/27/20 17:59 Last Admin: 07/27/20 17:45 Dose: 500 mls/hr Documented by: Albumin Human (Albumin 25%) 25 gm in 100 mls @ 25 mls/hr IV ONETIME ONE Stop: 07/28/20 07:35 Last Admin: 07/28/20 03:55 Dose: 25 mls/hr Documented by: Albumin Human (Albumin 25%) 25 gm in 100 mls @ 25 mls/hr IV Q6H [facility] Stop: 07/29/20 08:29 Last Admin: 07/29/20 03:51 Dose: 25 mls/hr Documented by: Potassium Chloride 20 meq/Lidocaine HCl 2 ml/ Sodium Chloride 112 mls @ 56 mls/hr IV Q2H [facility] Stop: 07/28/20 14:59 Last Admin: 07/28/20 13:52 Dose: 56 mls/hr Documented by: Sodium Chloride (Normal Saline) 500 mls @ 500 mls/hr IV .BOLUS ONE Stop: 07/28/20 18:51 Last Admin: 07/28/20 18:45 Dose: 500 mls/hr Documented by: Lactobacillus Rhamnosus (Culturelle) 1 cap PO BID [facility] Last Admin: 07/30/20 09:29 Dose: Not Given Documented by: Oxycodone HCl (Oxycodone) 5 - 10 mg PO Q4H PRN PRN Reason: Pain - Exam General: Cooperative, No Acute Distress, Lethargic Lungs: Clear to Auscultation, Normal Respiratory Effort Cardiovascular: Regular Rate, Regular Rhythm, No Murmurs GI/Abdominal Exam: Soft, Non-Tender, No Organomegaly, No Distention Extremities: Non-Tender, Pedal Edema Sepsis Event Note - Evaluation Sepsis Screening Result: No Definite Risk - Focused Exam Vital Signs: Vital Signs Temp Pulse Resp BP BP Pulse Ox Pulse Ox 07/30/20 10:27 96.1 F L 92 18 111/58 L 93 L 07/30/20 08:00 93 L 07/30/20 07:58 96.1 F L 93 18 106/56 L 93 L 07/30/20 02:43 96.7 F L 95 22 H 110/62 90 L - Problem List Review Problem List Initiated/Reviewed/Updated: Yes - My Orders Last 24 Hours: My Active Orders 07/29/20 11:18 Antiembolic Devices [RC] .Routine Sequential Compression Device [OM.PC] Routine - Plan Plan:: ASSESSMENT AND PLAN - Acute decompensated heart failure with preserved ejection fraction, suspected- family has decided to proceed with comfort cares only and hospice admission after discharge -Hold diuretics with low blood pressure -Supplement oxygen as indicated -Hold beta-mary with low blood pressure -Continue compression wraps of both legs Palliative care-she has lost strength and experienced significant medical problems over the last 6 months. Oral intake has been very poor for some time now. Family feels strongly that we should move to comfort cares. They have met with the hospice team for a consult and plan will be for [facility] to the [facility] tomorrow with hospice admission. Supratherapeutic INR-INR normal after reversal. -Hold warfarin Paroxysmal atrial fibrillation-currently in sinus rhythm. She has been chronically anticoagulated. -hold warfarin -Continue flecainide -Beta-mary on hold with hypotension Anemia due to blood loss, acute-hemoglobin stable following transfusion of 2 units of red blood cells -Symptomatic management of pain with heating pad and medications Maintenance issues - - DVT prophylaxis -we will utilize compression wraps at this time, unable to use pharmacological means due to recent hemorrhage - GI prophylaxis -not indicated - Nutrition -low-sodium - [place] catheter -will be removed today Disposition -I would anticipate [facility] back to the [facility] after the hospital stay Primary care physician -Dr. Rainer Olivarez
--- NOTE | 2020-07-30 14:32 | PCM.DCSUM1 ---
Discharge Summary - Hospital Course Brief History: Ms. Yanez is an 80-year-old woman who was admitted through the emergency department with progressive weakness shortness of breath and anemia. - Discharge Data Discharge Date: 07/31/20 Discharge Disposition: DC/Tfer to SNF 03 Condition: Poor - Referral to Home Health Primary Care Physician: Rainer Olivarez MD - Discharge Diagnosis/Problem(s) (1) Malnutrition SNOMED Code(s): 88315523 ICD Code: E46 - UNSPECIFIED PROTEIN-CALORIE MALNUTRITION Status: Acute Current Visit: Yes (2) Frequent falls SNOMED Code(s): 303899827 ICD Code: R29.6 - REPEATED FALLS Status: Acute Priority: High Current Visit: Yes (3) Supratherapeutic INR SNOMED Code(s): 817031297 ICD Code: R79.1 - ABNORMAL COAGULATION PROFILE Status: Acute Priority: H igh Current Visit: Yes (4) Chest wall contusion SNOMED Code(s): 91905360 ICD Code: S20.219A - CONTUSION OF UNSPECIFIED FRONT WALL OF THORAX, INIT ENCNTR Status: Acute Priority: High Current Visit: Yes Qualifiers: Encounter type: initial encounter Laterality: left Qualified Code(s): S20.212A - Contusion of left front wall of thorax, initial encounter (5) Pleural effusion SNOMED Code(s): 12942693 ICD Code: J90 - PLEURAL EFFUSION, NOT ELSEWHERE CLASSIFIED Status: Acute Priority: High Current Visit: Yes (6) Acute heart failure with preserved ejection fraction (HFpEF) SNOMED Code(s): 886273172, 076318144 ICD Code: I50.31 - ACUTE DIASTOLIC (CONGESTIVE) HEART FAILURE Status: Acute Current Visit: Yes (7) Anemia due to blood loss, acute SNOMED Code(s): 076539969 ICD Code: D62 - ACUTE POSTHEMORRHAGIC ANEMIA Status: Acute Current Visit: Yes (8) Paroxysmal atrial fibrillation SNOMED Code(s): 089290260 ICD Code: I48.0 - PAROXYSMAL ATRIAL FIBRILLATION Status: Chronic Current Visit: Yes - Patient Summary/Data Hospital Course: Ms. Yanez presented to the ER from [facility] with an episode of unresponsiveness. She was responsive on arrival to the emergency room. She has some underlying confusion and dementia making history somewhat difficult to gather. She is able to tell me that she has had a couple of falls recently and family reports this was about 10 days ago. She says she has been coughing some and halfway notes indicate she has been on levofloxacin for 10 days to treat a suspected pneumonia. She feels weak and feels tired. She does not think that she was ever unresponsive earlier in the day but cannot be 100% sure. Family reports increasing difficulty with lower extremity edema as well as some arm edema over the past few weeks. She has had recent adjustments to her diuretics and an echocardiogram was planned. Work-up in the emergency room revealed a supratherapeutic INR at 6.6. She has anasarca and severe lower extremity edema. She has moderate to large bilateral pleural effusions. She has a hemoglobin of 9 and a large hematoma along the left side of her chest extending down to the lower back and into the tissues of the lower leg. She will be admitted for management of decompensated congestive heart failure with large pleural effusions as well as a supratherapeutic INR, large hematoma and anemia due to blood loss. She was admitted to the hospital and started on IV diuretic therapy. She had difficulty tolerating IV diuretics throughout hospital stay because of lower blood pressure. She was seen and evaluated by Dr. Enciso. Thoracentesis was performed of both lungs, fluid evaluation was consistent with transudate. There was no evidence of underlying infection in the fluid or malignancy. She remained very weak throughout hospitalization and intermittently did have episodes of decreased level of consciousness. Albumin level was found to be low and she did receive supplemental albumin. By history her appetite has been very poor over the past few months with very minimal oral intake. Echocardiogram was obtained and did show preserved left ventricular systolic function, she is suspected to have significant diastolic dysfunction. Anticoagulation with warfarin was reversed with IV vitamin K, decision was made to stop anticoagulation because of recent falls and significant bleeding. This recommendation was reviewed with family and they were in agreement. Hemoglobin levels were monitored and during hospital stay hemoglobin did drop to 6.6, she was transfused 2 units of red blood cells. Hemoglobin increased significantly and remained stable thereafter with no further evidence of active bleeding. CT scan of the head was obtained in the emergency department and showed no evidence of active intracranial bleeding. CT scan of the chest abdomen pelvis was obtained in the emergency department and did show soft tissue hematoma involving the left chest wall and extending down the back into the buttock and thigh on the left. Attempted intervention she really showed no significant improvement in overall strength or appetite. Several discussions were held with family and we did review recent history of progressive decline over the past several months. She does have some underlying dementia and this has progressed over the past few months as well. Family has requested comfort cares only and she will be discharged to the halfway with hospice admission after discharge. Activity will be as tolerated and she will resume her usual diet. - Patient Instructions Diet: Usual Diet as Tolerated Activity: As Tolerated Other/Special Instructions: Admit to hospice after discharge from hospital - Discharge Plan *PRESCRIPTION DRUG MONITORING PROGRAM REVIEWED*: Not Applicable *COPY OF PRESCRIPTION DRUG MONITORING REPORT IN PATIENT DEIRDRE: Not Applicable Home Medications: Home Meds Levothyroxine [Synthroid] 75 mcg PO DAILY 10/26/13 [History] Fluticasone Propionate [Flonase Allergy Relief] 2 spray JIMMY DAILY 06/07/19 [History] Acetaminophen [Tylenol] 2 tab PO BID 09/17/19 [History] Metoprolol Succinate [Toprol XL 50mg] 50 mg PO DAILY 09/17/19 [History] Flecainide Acetate 1 tab PO BID 04/23/20 [History] Acetaminophen 650 mg PO Q4H PRN #200 tablet 06/13/20 [Rx] Melatonin/Pyridoxine HCl (B6) [Melatonin 5 mg Tablet] 1 each PO BEDTIME #30 tablet 06/13/20 [Rx] Albuterol/Ipratropium [DuoNeb 3.0-0.5 MG/3 ML] 1 ampule INH QID PRN 07/26/20 [History] Furosemide 1 tab PO DAILY 07/26/20 [History] Magnesium Oxide [Magnesium] 1 tab PO DAILY 07/26/20 [History] Potassium Chloride 1 tab PO BID 07/26/20 [History] Referrals: Rainer Olivarez MD [Primary Care Provider] - - Discharge Summary/Plan Comment DC Time >30 min.: No - Patient Data Vitals - Most Recent: Last Vital Signs Temp 96.1 F L 07/30/20 10:27 Pulse 92 07/30/20 10:27 Resp 18 07/30/20 10:27 BP 111/58 L 07/30/20 10:27 Pulse Ox 93 L 07/30/20 10:27 Weight - Most Recent: 191 lb 9.307 oz I&O - Last 24 hours: Intake & Output 07/29/20 07/30/20 07/30/20 22:59 06:59 14:59 Intake Total 350 30 Output Total 175 250 Balance 175 -250 30 Lab Results - Last 24 hrs: Laboratory Results - last 24 hr 07/26/20 07/29/20 07/30/20 Range/Units 16:07 19:50 05:23 WBC 11.1 H (4.5-11.0) K/uL RBC 3.75 (3.30-5.50) M/uL Hgb 10.7 L D 10.4 L (12.0-15.0) g/dL Hct 30.9 L (36.0-48.0) % MCV 82 (80-98) fL MCH 28 (27-31) pg MCHC 34 (32-36) % Plt Count 324 (150-400) K/uL Neut % (Auto) 74 H (36-66) % Lymph % (Auto) 12 L (24-44) % Grady % (Auto) 10 H (2-6) % Eos % (Auto) 4 (2-4) % Baso % (Auto) 0 (0-1) % PT (9.5-12.0) sec INR (0.80-1.20) Sodium (140-148) mmol/L Potassium (3.6-5.2) mmol/L Chloride (100-108) mmol/L Carbon Dioxide (21-32) mmol/L Anion Gap (5.0-14.0) mmol/L BUN (7-18) mg/dL Creatinine (0.6-1.0) mg/dL Est Cr Clr Drug Dosing mL/min Estimated GFR (MDRD) (>60) Glucose (74-106) mg/dL Calcium (8.5-10.1) mg/dL Blood Type O POSITIVE Gel Antibody Screen Negative Crossmatch See Detail 07/30/20 07/30/20 Range/Units 05:23 05:23 WBC (4.5-11.0) K/uL RBC (3.30-5.50) M/uL Hgb (12.0-15.0) g/dL Hct (36.0-48.0) % MCV (80-98) fL MCH (27-31) pg MCHC (32-36) % Plt Count (150-400) K/uL Neut % (Auto) (36-66) % Lymph % (Auto) (24-44) % Grady % (Auto) (2-6) % Eos % (Auto) (2-4) % Baso % (Auto) (0-1) % PT 13.4 H (9.5-12.0) sec INR 1.23 H (0.80-1.20) Sodium 140 (140-148) mmol/L Potassium 4.2 (3.6-5.2) mmol/L Chloride 103 (100-108) mmol/L Carbon Dioxide 30 (21-32) mmol/L Anion Gap 6.9 (5.0-14.0) mmol/L BUN 24 H (7-18) mg/dL Creatinine 0.8 (0.6-1.0) mg/dL Est Cr Clr Drug Dosing 47.97 mL/min Estimated GFR (MDRD) > 60 (>60) Glucose 87 (74-106) mg/dL Calcium 9.4 (8.5-10.1) mg/dL Blood Type Gel Antibody Screen Crossmatch PAT Results - Last 24 hrs: Microbiology 07/27/20 09:06 Gram Stain - Final Thoracentesis Fluid Body Fluid Culture - Final NO GROWTH AFTER 3 DAYS Med Orders - Current: Current Medications Acetaminophen (Tylenol) 1,000 mg PO TID [facility] Last Admin: 07/30/20 13:27 Dose: Not Given Documented by: Albuterol (Proventil Neb Soln) 2.5 mg NEB Q4H PRN PRN Reason: Shortness Of Breath/wheezing Last Admin: 07/29/20 13:42 Dose: 2.5 mg Documented by: Ferrous Sulfate (Ferrous Sulfate) 325 mg PO DAILY [facility] Last Admin: 07/30/20 09:29 Dose: Not Given Documented by: Flecainide Acetate (Tambocor) 50 mg PO BID [facility] Last Admin: 07/30/20 09:27 Dose: 50 mg Documented by: Levothyroxine Sodium (Levothyroxine) 75 mcg PO DAILY@0730 [facility] Last Admin: 07/30/20 08:03 Dose: 75 mcg Documented by: Lorazepam (Ativan) 0.5 mg IVPUSH Q4H PRN PRN Reason: Nausea/Vomiting Melatonin (Melatonin) 9 mg PO BEDTIME [facility] Last Admin: 07/29/20 21:29 Dose: 9 mg Documented by: Metoprolol Succinate (Toprol Xl) 50 mg PO DAILY [facility] Last Admin: 07/30/20 09:57 Dose: Not Given Documented by: Morphine Sulfate (Morphine) 2 mg IVPUSH Q2H PRN PRN Reason: Pain (severe 7-10) Last Admin: 07/30/20 05:31 Dose: 2 mg Documented by: Ondansetron HCl (Zofran) 4 mg IV Q6H PRN PRN Reason: Nausea/Vomiting Ondansetron HCl (Zofran Odt) 4 mg PO Q6H PRN PRN Reason: Nausea able to take PO Oxycodone HCl (Oxycodone) 5 mg PO Q4H PRN PRN Reason: Pain Last Admin: 07/28/20 19:27 Dose: 5 mg Documented by: Senna/Docusate Sodium (Senna Plus) 1 tab PO BID PRN PRN Reason: Constipation Sodium Chloride (Saline Flush) 10 ml FLUSH ASDIRECTED PRN PRN Reason: IV Use Last Admin: 07/26/20 16:47 Dose: 10 ml Documented by: Discontinued Medications Acetaminophen (Tylenol Extra Strength) 1,000 mg PO TID [facility] Last Admin: 07/27/20 10:59 Dose: 1,000 mg Documented by: Fenofibrate (Fenofibrate) 54 mg PO QAM [facility] Last Admin: 07/30/20 09:29 Dose: Not Given Documented by: Furosemide (Lasix) 40 mg IVPUSH NOW ONE Stop: 07/29/20 14:01 Last Admin: 07/29/20 14:15 Dose: 40 mg Documented by: Hydromorphone HCl (Dilaudid) 0.5 mg IVPUSH ONETIME ONE Stop: 07/26/20 16:04 Last Admin: 07/26/20 16:48 Dose: 0.5 mg Documented by: Phytonadione 10 mg/ Sodium (Chloride) 51 mls @ 100 mls/hr IV NOW ONE Stop: 07/26/20 16:13 Last Admin: 07/26/20 17:05 Dose: 100 mls/hr Documented by: Sodium Chloride (Normal Saline) 500 mls @ 500 mls/hr IV .BOLUS ONE Stop: 07/26/20 21:35 Last Admin: 07/26/20 21:53 Dose: Not Given Documented by: Sodium Chloride (Normal Saline) 500 mls @ 500 mls/hr IV ASDIRECTED [facility] Stop: 07/27/20 11:01 Albumin Human (Albumin 25%) 25 gm in 100 mls @ 25 mls/hr IV ONETIME ONE Stop: 07/27/20 17:59 Last Admin: 07/27/20 14:38 Dose: 25 mls/hr Documented by: Sodium Chloride (Normal Saline) 500 mls @ 500 mls/hr IV ASDIRECTED [facility] Stop: 07/27/20 17:59 Last Admin: 07/27/20 17:45 Dose: 500 mls/hr Documented by: Albumin Human (Albumin 25%) 25 gm in 100 mls @ 25 mls/hr IV ONETIME ONE Stop: 07/28/20 07:35 Last Admin: 07/28/20 03:55 Dose: 25 mls/hr Documented by: Albumin Human (Albumin 25%) 25 gm in 100 mls @ 25 mls/hr IV Q6H [facility] Stop: 07/29/20 08:29 Last Admin: 07/29/20 03:51 Dose: 25 mls/hr Documented by: Potassium Chloride 20 meq/Lidocaine HCl 2 ml/ Sodium Chloride 112 mls @ 56 mls/hr IV Q2H [facility] Stop: 07/28/20 14:59 Last Admin: 07/28/20 13:52 Dose: 56 mls/hr Documented by: Sodium Chloride (Normal Saline) 500 mls @ 500 mls/hr IV .BOLUS ONE Stop: 07/28/20 18:51 Last Admin: 07/28/20 18:45 Dose: 500 mls/hr Documented by: Lactobacillus Rhamnosus (Culturelle) 1 cap PO BID [facility] Last Admin: 07/30/20 09:29 Dose: Not Given Documented by: Oxycodone HCl (Oxycodone) 5 - 10 mg PO Q4H PRN PRN Reason: Pain - Exam General: Reports: Alert, Cooperative, No Acute Distress. Denies: Oriented Lungs: Reports: Clear to Auscultation, Normal Respiratory Effort Cardiovascular: Reports: Regular Rate, Regular Rhythm, No Murmurs GI/Abdominal Exam: Soft, Non-Tender, No Organomegaly, No Distention Extremities: Non-Tender, Pedal Edema *Q Meaningful Use (DIS) - VTE *Q VTE Pharmacological Contraindications *Q: Active Hemorrhage
[2020-07-30] MEDS: Melatonin 3 MG Tab PO SCH (21:32)
[2020-07-31] MEDS: Morphine 2 MG/ML SYRINGE IVPUSH PRN ×2 (04:09→08:47)
--- NOTE | 2020-07-31 07:14 | PN ---
DATE OF SERVICE: 07/29/2020 SUBJECTIVE: Ms. Yanez has experienced more shortness of breath and increased episodes of sleeping, essentially unresponsive during that period of time. When seen later in the day, she was more alert but still disoriented. Both of her sons were present this afternoon. We did have a discussion concerning ongoing care. They are going to consider options including feeding tube versus move to comfort cares with hospice, and we will plan to talk and tomorrow. OBJECTIVE: VITAL SIGNS: Blood pressure 118/67, heart rate 83, respiratory rate 18, temperature 96.4 degrees, and saturation is 98%. CARDIAC: Regular rate and rhythm. S1, S2 normal. No murmurs, S3, or S4. No jugular venous distention. LUNGS: Decreased breath sound at bases. No rales, rhonchi, or wheezes. ABDOMEN: Soft and nontender without palpable masses or organomegaly. EXTREMITIES: She does have peripheral edema. LABORATORY TESTS AND DIAGNOSTIC STUDIES: White blood cell count and platelets are within the desired range. Hemoglobin had dropped to 6.6. BMP remarkable for sodium of 137 and BUN of 23. Chest x-ray shows increasing infiltrates compared to previous x-ray. Echocardiogram showed preserved left ventricular systolic function. No estimate of diastolic dysfunction. There was [id number] MR and TR. IMPRESSION AND PLAN: 1. Acute decompensated diastolic heart failure. Echo preliminary report shows preserved systolic function. There was no estimate on preliminary report of diastolic dysfunction. There was ceov-[id number] mitral regurgitation and tricuspid regurgitation. Hypoalbuminemia remains an ongoing issue concerning peripheral edema and pulmonary edema. She did receive some albumin through the day yesterday and is currently receiving red blood cells. We will give 40 mg of furosemide between 2 units of red blood cells today. Plan to recheck renal function again in the morning. Continue to hold beta mary therapy. Continue with compression wraps on both lower extremities. 2. Supratherapeutic INR, resolved after intravenous vitamin K. Plan to recheck INR in the a.m. 3. Paroxysmal atrial fibrillation. She has remained in sinus rhythm. No evidence of tachycardia. Warfarin is on hold, but we will continue flecainide. Beta mary on hold because of lower blood pressures. 4. Anemia due to blood loss. Large hematoma involving the left chest wall radiating down to the buttocks and into the upper left leg. Hemoglobin dropped significantly indicating that there is likely some ongoing bleeding. She will receive 2 units of red blood cells today. Find a followup hemoglobin following transfusion and again in a.m. 5. Palliative care. Discussed ongoing management with her sons, Leroy and Ronaldo. They are going to consider things further. Possible feeding tube placement versus move to comfort care and hospice admission after discharge. 6. Maintenance issues. Continue compression wraps and sequential compression devices. She does not currently require gastrointestinal prophylaxis. Nutritional status is being discussed. She is currently on low-sodium diet, but oral intake has been extremely poor. She does have a Engle catheter placed for monitoring of urine output. 7. Disposition. Plan for discharge back to the halfway possibly with hospice care. Hakan Champion MD /[id number]
[2020-07-31] MEDS: Levothyroxine 25 MCG Tab PO SCH (08:22)
[2020-07-31] MEDS: Flecainide 50 MG Tab PO SCH (08:22)
[2020-07-31] MEDS: Ferrous Sulfate 325 MG Tab PO SCH (08:22)
[2020-07-31] MEDS: Metoprolol Succinate 50 MG Tab.ER PO SCH (08:22)
[2020-07-31] MEDS: Acetaminophen Soln 650 MG/20.3 ML UD Cup PO SCH (08:23)
== END 2020-07-31 09:13 | DRG 186 ==
LOC: JP.ED 12:49 → JP.MS 15:46
PROVIDERS: ADMIT Internal Medicine; ATTEND Hospitalist
PROC: 0W993ZZ Drainage of Right Pleural Cavity, Percutaneous Approach (ICD-10-PCS; principal; 2020-07-27)
PROC: 0W9B3ZZ Drainage of Left Pleural Cavity, Percutaneous Approach (ICD-10-PCS; 2020-07-30)
DX: R29.6 Repeated falls (principal); J90 Pleural effusion, not elsewhere classified; I50.43 Acute on chronic combined systolic (congestive) and diastolic (congestive) heart failure; E46 Unspecified protein-calorie malnutrition; D62 Acute posthemorrhagic anemia; S00.83XA Contusion of other part of head, initial encounter; R79.1 Abnormal coagulation profile; S20.219A Contusion of unspecified front wall of thorax, initial encounter; S20.212A Contusion of left front wall of thorax, initial encounter; I48.91 Unspecified atrial fibrillation; I48.0 Paroxysmal atrial fibrillation; M19.90 Unspecified osteoarthritis, unspecified site; G62.9 Polyneuropathy, unspecified; M06.9 Rheumatoid arthritis, unspecified; K44.9 Diaphragmatic hernia without obstruction or gangrene; Z66 Do not resuscitate; I89.0 Lymphedema, not elsewhere classified; S70.02XA Contusion of left hip, initial encounter; S70.12XA Contusion of left thigh, initial encounter; Z51.5 Encounter for palliative care; Z99.81 Dependence on supplemental oxygen; Z20.822 Contact with and (suspected) exposure to COVID-19; Z88.0 Allergy status to penicillin; Z79.890 Hormone replacement therapy; Z79.01 Long term (current) use of anticoagulants; Z79.899 Other long term (current) drug therapy; Z98.49 Cataract extraction status, unspecified eye; Z86.16 Personal history of COVID-19; Z90.49 Acquired absence of other specified parts of digestive tract; Z68.32 Body mass index [BMI] 32.0-32.9, adult; H35.30 Unspecified macular degeneration; M35.3 Polymyalgia rheumatica; W19.XXXA Unspecified fall, initial encounter
CPT/HCPCS: 0241U; 36415; 36430; 70450; 70450-26; 71045; 71045-26; 71046; 71046-26; 71250; 71250-26; 74176; 74176-26; 80048; 80053; 81001; 82150; 82945; 83615; 83735; 83880; 83986; 84157; 84484; 85018; 85025; 85027; 85610; 85730; 86850; 86900; 86901; 86920; 86922; 87070; 87102; 87205; 87220; 88112; 88305; 89050; 93005; 93010; 93306; 94640; 99285; 99285-25; A9270-GY; J1170; J1940; J2270; J3430; J3480; J7030; J7040; P9016; P9047